=== PATIENT | female | born 1990 | race American Indian/Alaskan Native ===

== ENCOUNTER 2016-11-16 18:45 | Emergency (ER) | payer MEDICAID ==
--- NOTE | 2016-11-16 19:29 | EDM.PDOC ---
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 States she has been able to feel the baby move already during this but hasn't felt the baby move this afternoon. Also had a small amount of spotting. She has had some spotting previously with this . No abdominal pain. No cramping. No additional complaint. No fever , recent illness, vomiting, unusual vaginal discharge, pelvic pain, urinary symptoms, or other concerns. She has been getting care. Her next OB appointment is scheduled for December 05. She is in custody. 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 - Past Surgical History Female Surgical History: Reports: D&C Social & Family History - Tobacco Use Smoking Status *Q: Former Smoker Used Tobacco, but Quit: Yes Month Tobacco Last Used: 4 Second Hand Smoke Exposure: No - Caffeine Use Caffeine Use: Reports: Soda - Alcohol Use Days Per Week of Alcohol Use: 0 - Recreational Drug Use Recreational Drug Use: Yes Recreational Drug Type: Reports: Marijuana/Hashish, Methamphetamine Other Recreational Drug Type: has not used in over a year ED ROS GENERAL - Review of Systems Review Of Systems: See Below Constitutional: Denies: Fever Respiratory: Denies: Shortness of Breath, Cough Cardiovascular: Denies: Chest Pain GI/Abdominal: Denies: Abdominal Pain : Denies: Dysuria ED EXAM - Physical Exam Exam: See Below Exam Limited By: No Limitations General Appearance: Alert, WD/WN, No Apparent Distress Ears: Normal External Exam Nose: Normal Inspection Throat/Mouth: Normal Inspection, Normal Voice, No Airway Compromise Head: Atraumatic, Normocephalic Neck: Normal Inspection, Supple Respiratory/Chest: No Respiratory Distress, Lungs Clear Cardiovascular: Normal Peripheral Pulses, Regular Rate, Rhythm, No Murmur GI/Abdominal Exam: Soft, Non-Tender, No Distention. No: Rebound (Female) Exam: Normal External Exam, Normal Speculum Exam. No: Cervical Dilatation, Vaginal Bleeding Heart Tones: Present Heart Tones per Min: 162 Back Exam: Normal Inspection Extremities: Normal Inspection Neurological: Alert, Oriented, Normal Cognition, No Motor/Sensory Deficits Psychiatric: Normal Affect, Normal Mood Skin Exam: Warm, Dry, Intact, Normal Color, No Rash Course - Vital Signs Last Recorded V/S: Last Vital Signs Temp 36.7 C 11/16/16 18:54 Pulse 82 11/16/16 18:54 Resp 20 11/16/16 18:54 BP 88/60 L 11/16/16 18:54 Pulse Ox 99 11/16/16 18:54 - Orders/Labs/Meds Orders: Active Orders 24 hr Category Date Time Status Pelvic Exam, Set Up [RC] ASDIRECTED Care 11/16/16 19:20 Ordered - Re-Assessments/Exams Free Text/Narrative Re-Assessment/Exam: 11/16/16 19:[address] Cam reports that the patient is RH+ per her labs. On pelvic exam, no evidence of bleeding. Will discharge back to [facility]. Departure - Departure Time of Disposition: 19:30 Disposition: Home, Self-Care 01 Clinical Impression: Qualifiers: Weeks of gestation: 17 weeks Qualified Code(s): Z3A.17 - 17 weeks gestation of - Discharge Information Forms: ED Department Discharge Additional Instructions: 1. Follow up with Dr. Cam as planned on December 05 2. At this stage of , you do not need to come in for not feeling your baby move. This will not be a concern for at least a few weeks. Discuss with Dr. Cam for advice at what point you need to come in for this concern. 3. There was no evidence of bleeding on your pelvic exam. If you have significant spotting/bleeding like a period or passing clots please come back to the Emergency Department for evaluation. - My Orders Last 24 Hours: My Active Orders 11/16/16 19:20 Pelvic Exam, Set Up [RC] ASDIRECTED - Assessment/Plan Last 24 Hours: My Active Orders 11/16/16 19:20 Pelvic Exam, Set Up [RC] ASDIRECTED
[2016-11-16 19:48] VITALS: BP 111/70
== END 2016-11-16 19:40 | disposition home or self-care (01) ==
LOC: JD.ED 18:45
DX: O20.9 Hemorrhage in early pregnancy, unspecified (principal); Z87.891 Personal history of nicotine dependence; Z3A.17 17 weeks gestation of pregnancy
CPT/HCPCS: 99282; 99284

== ENCOUNTER 2017-04-20 23:07 | Inpatient (IN) | payer BC ==
--- NOTE | 2017-04-21 01:07 | PCM.SN ---
- Free Text/Narrative Note: Evaluation Note OB Physician: Dr. Lindy Cam HPI: Yenni Tadeo is a 27-year-old at 39 weeks and 6 days who presents complaining of large gush of fluid at approximately 10:30. Reports that she had a large gush of clear fluid at approximately 10:30 yesterday evening, 2016, and that she has had a small amount of continued leaking of fluid since large gush. She has had contractions intermittently throughout the day but they increased in intensity and frequency after the large gush of fluid. She reports that the contractions are about every 6 minutes apart at this time. Lasting for about 45-60 seconds. Rates the contractions intensity at 8/10. Denies any vaginal bleeding. Reports good movement. Her care has been with Dr. Lindy Cam and is overall uncomplicated Vitals: Physical Examination: General: No acute distress, alert and oriented Lungs: Clear to auscultation bilaterally Heart: Regular rate and rhythm Abdomen: Soft, nontender, nondistended, gravid Extremities: No edema noted in bilateral lower extremities Cervical exam: 1/50/-5 -> 2/50/-3 FHT: 135s, moderate variability, positive 15x15 accelerations, no decelerations [place]: Irregular contraction pattern with irritability with contractions every 3- 9 minutes apart Ultrasound: Vertex by bedside ultrasound Labs: Amnisure: Negative Interventions: By mouth fluid hydration Discharge Medications: None Assessment and Plan: Yenni Tadeo is a 27-year-old 032 at 39 weeks and 6 days with initial complaint of possible spontaneous rupture membranes, suspected to be urinary incontinence with negative Amnisure but active labor with cervical change. Patient in active labor after recheck Refer to observation See H&P for full details Miguel Butterfield MD 04/21/2017 9:00 AM
[2017-04-21] MEDS ORDERED: Ondansetron 4 MG/2 ML SDV IVPUSH PRN ×2 (03:12→07:16)
[2017-04-21] MEDS ORDERED: Calcium Carbonate 500 MG Tab.Chew PO PRN (03:12)
[2017-04-21] MEDS ORDERED: Sodium Chloride 0.9% 10 ML Syringe FLUSH PRN (03:12)
[2017-04-21] MEDS ORDERED: Oxytocin/Lactated Ringers 10 UNIT/1,000 ML BAG IV SCH ×3 (03:15→19:00)
[2017-04-21] MEDS: Lactated Ringers 1,000 ML IV SCH ×5 (06:45→16:51)
[2017-04-21] MEDS ORDERED: ePHEDrine 50 MG/ML SDV IVPUSH PRN (07:16)
[2017-04-21] MEDS ORDERED: diphenhydrAMINE 50 MG/ML SDV IVPUSH PRN (07:16)
[2017-04-21] MEDS ORDERED: fentaNYL 100 MCG/2 ML SDV EPIDUR PRN (07:16)
--- NOTE | 2017-04-21 07:25 | PCM.PREANE ---
Preanesthetic Assessment - Procedure Proposed Procedure: KING - Anesthesia/Transfusion/Family Hx Anesthesia History: Prior Anesthesia Without Reaction Family History of Anesthesia Reaction: No Transfusion History: No Prior Transfusion(s) - Review of Systems General: No Symptoms Pulmonary: No Symptoms Cardiovascular: No Symptoms Gastrointestinal: No Symptoms Neurological: No Symptoms Other: Reports: Diabetes (marginal gestational DM, stated her blood sugar test was 139) - Physical Assessment NPO Status Date: 04/21/17 NPO Status Time: 05:00 O2 Sat by Pulse Oximetry: 99 Respiratory Rate: 14 Vital Signs: Last Vital Signs Temp 36.8 C 04/21/17 00:18 Pulse 91 04/21/17 00:18 Resp 14 04/21/17 00:18 BP 122/59 L 04/21/17 00:18 Pulse Ox 99 04/21/17 00:18 Height: 1.63 m Weight: 92.533 kg ASA Class: 2 Mental Status: Alert & Oriented x3 Airway Class: Mallampati = 2 Dentition: Reports: Normal Dentition Thyro-Mental Finger Breadths: 3 Mouth Opening Finger Breadths: 3 ROM/Head Extension: Full Lungs: Clear to Auscultation, Normal Respiratory Effort Cardiovascular: Regular Rate, Regular Rhythm - Lab Values: Laboratory Last Values WBC 9.60 K/mm3 (3.98-10.04) 04/21/17 05:05 RBC 4.17 M/mm3 (3.98-5.22) 04/21/17 05:05 Hgb 10.0 gm/L (11.2-15.7) L 04/21/17 05:05 Hct 32.3 % (34.1-44.9) L 04/21/17 05:05 MCV 77.5 fl (79.4-94.8) L 04/21/17 05:05 MCH 24.0 pg (25.6-32.2) L 04/21/17 05:05 MCHC 31.0 g/dl (32.2-35.5) L 04/21/17 05:05 RDW Std Deviation 64.6 fL (36.4-46.3) H 04/21/17 05:05 Plt Count 201 K/mm3 (182-369) 04/21/17 05:05 MPV 12.3 fl (9.4-12.3) 04/21/17 05:05 Neut % (Auto) 70.6 % (34.0-71.1) 04/21/17 05:05 Lymph % (Auto) 20.5 % (19.3-51.7) 04/21/17 05:05 [place] % (Auto) 7.8 % (4.7-12.5) 04/21/17 05:05 Eos % (Auto) 0.5 (0.7-5.8) L 04/21/17 05:05 Baso % (Auto) 0.1 % (0.1-1.2) 04/21/17 05:05 Neut # (Auto) 6.77 K/mm3 (1.56-6.13) H 04/21/17 05:05 Lymph # (Auto) 1.97 K/mm3 (1.18-3.74) 04/21/17 05:05 [place] # (Auto) 0.75 K/mm3 (0.24-0.36) H 04/21/17 05:05 Eos # (Auto) 0.05 K/mm3 (0.04-0.36) 04/21/17 05:05 Baso # (Auto) 0.01 K/mm3 (0.01-0.08) 04/21/17 05:05 Manual Slide Review Abnormal smear 04/21/17 05:05 Membrane Rupture Negative 04/21/17 00:05 - Allergies Allergies/Adverse Reactions: Allergies Allergy/AdvReac Type Severity Reaction Status Date / Time No Known Allergies Allergy Verified 02/20/15 08:46 - Blood Blood Available: No Product(s) Available: None - Anesthesia Plan Pre-Op Medication Ordered: None - Acknowledgements Anesthesia Type Planned: Epidural Pt an Appropriate Candidate for the Planned Anesthesia: Yes Alternatives and Risks of Anesthesia Discussed w Pt/Guardian: Yes Pt/Guardian Understands and Agrees with Anesthesia Plan: Yes PreAnesthesia Questionnaire - Past Health History Medical/Surgical History: Denies 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: , 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 - Past Surgical History Female Surgical History: Reports: D&C - SUBSTANCE USE Smoking Status *Q: Former Smoker Tobacco Use Within Last Twelve Months: Cigarettes Second Hand Smoke Exposure: No Days Per Week of Alcohol Use: 0 Recreational Drug Use History: No Recreational Drug Type: Reports: Marijuana/Hashish, Methamphetamine - HOME MEDS Home Medications: Home Meds PNV95/Ferrous Fumarate/FA [ Tablet] 1 tab PO DAILY 11/16/16 [History] - CURRENT (IN HOUSE) MEDS Current Meds: Current Medications Calcium Carbonate/Glycine (Tums) 1,000 mg PO Q2H PRN PRN Reason: Indigestion Diphenhydramine HCl (Benadryl) 25 mg IVPUSH Q6H PRN PRN Reason: Pruritis Ephedrine Sulfate (Ephedrine Sulfate) 5 mg IVPUSH ASDIRECTED PRN PRN Reason: Hypotension Fentanyl (Sublimaze) 100 mcg EPIDUR Q3H PRN PRN Reason: Pain Fentanyl/Bupivacaine HCl (Fentanyl/Bupivacaine/Ns 2 Mcg-0.125% 100 Ml) 100 ml EPIDUR ASDIRECTED [place] Lactated Ringer's (Ringers, Lactated) 1,000 mls @ 100 mls/hr IV ASDIRECTED [facility] Last Admin: 04/21/17 06:45 Dose: 999 mls/hr Oxytocin/Lactated Ringer's (Pitocin In Lr 10 Units/1,000 Ml) 10 unit in 1,000 mls @ 500 mls/hr IV .CONTINUOUS [facility] Ondansetron HCl (Zofran) 4 mg IVPUSH Q4H PRN PRN Reason: Nausea/Vomiting Ondansetron HCl (Zofran) 4 mg IVPUSH ONETIME PRN PRN Reason: Nausea/Vomiting Sodium Chloride (Saline Flush) 10 ml FLUSH ASDIRECTED PRN PRN Reason: Keep Vein Open
[2017-04-21] MEDS: Bupivacaine/fentaNYL/NS 100 ML Bag EPIDUR SCH ×2 (07:53→14:28)
--- NOTE | 2017-04-21 09:14 | PCM.LDHP ---
L&D History of Present Illness - General Date of Service: 04/21/17 Admit Problem/Dx: Patient Status Order with Admit Dx/Problem 04/21/17 00:18 Patient Status [ADT] Routine 04/21/17 03:12 Patient Status [ADT] Routine Admission Diagnosis/Problem Admission Diagnosis/Problem Source of Information: Patient History Limitations: Reports: No Limitations - History of Present Illness Introduction:: Yenni Tadeo is a 27-year-old at 39 weeks and 6 days who presents complaining of large gush of fluid at approximately 10:30. Reports that she had a large gush of clear fluid at approximately 10:30 yesterday evening, 2016, and that she has had a small amount of continued leaking of fluid since large gush. She has had contractions intermittently throughout the day but they increased in intensity and frequency after the large gush of fluid. She reports that the contractions are about every 6 minutes apart at this time. Lasting for about 45-60 seconds. Rates the contractions intensity at 8/10. Denies any vaginal bleeding. Reports good movement. While she was being evaluated on labor and delivery her cervix changed from 1 to 2 cm dilated and she was kept for observation. Timing/Duration: Reports: seconds: (Contractions lasting 45-60 seconds), minutes : (Contractions approximately 6-8 minutes apart), constant/continuous Location, : Reports: Lower back, Pelvic Quality: Reports: Pressure Severity: Moderate Pain Score: 9 Present Illness Comments:: Yenni Tadeo is a 27-year-old at 39 weeks 5 days by 7 week ultrasound. Patient has had regular care with Dr. Cam since 5 weeks gestation. Review of labs show a positive blood type with negative antibody screen. Rubella immune. Hepatitis B and HIV negative. Gonorrhea and chlamydia negative. One-hour glucose tolerance test was 139. Her hemoglobin on 10/03/2016 was 13.2. Repeat hemoglobin on 03/14/2017 was benign. She has had a 43 pound weight gain throughout the . GBS was negative. She received TDaP vaccine on 03/14/2017. Appears the patient has not received flu vaccine per the records. 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 : 6 Para: 2 ([id number]) LMP (Approximate): Unknown Other OB/BYN History: Patient has had a history of D&C in 2007 - Past Surgical History Female Surgical History: Reports: D&C Social & Family History - Family History Family Medical History: Noncontributory - Tobacco Use Smoking Status *Q: Former Smoker Years of Tobacco use: 12 Packs/Tins Daily: 0 Used Tobacco, but Quit: Yes Month Tobacco Last Used: 08/2016 Second Hand Smoke Exposure: No - Caffeine Use Caffeine Use: Reports: None - Alcohol Use Days Per Week of Alcohol Use: 0 - Recreational Drug Use Recreational Drug Use: No Drug Use in Last 12 Months: Yes Recreational Drug Type: Reports: Marijuana/Hashish, Methamphetamine Other Recreational Drug Type: has not used in over a year H&P Review of Systems - Review of Systems: Review Of Systems: See Below General: Denies: Fever, Chills, Malaise, Weakness HEENT: Denies: Headaches, Sinus Congestion, Sore Throat, Visual Changes Pulmonary: Denies: Shortness of Breath, Wheezing, Cough Cardiovascular: Denies: Chest Pain, Palpitations Gastrointestinal: Denies: Abdominal Pain, Constipation, Diarrhea, Nausea, Vomiting Genitourinary: Denies: Dysuria, Frequency, Burning, Pain, Urgency Musculoskeletal: Reports: Back Pain. Denies: Joint Pain, Muscle Pain Skin: Denies: Rash, Lesions Psychiatric: Denies: Depression, Anxiety Neurological: Denies: Dizziness, Headache Hematologic/Lymphatic: Reports: Anemia. Denies: Easy Bleeding, Easy Bruising L&D Exam - Exam Exam: See Below - Vital Signs Vital Signs: Last Vital Signs Temp 36.8 C 04/21/17 00:18 Pulse 91 04/21/17 00:18 Resp 14 04/21/17 07:25 BP 122/59 L 04/21/17 00:18 Pulse Ox 99 04/21/17 07:25 Weight: 92.533 kg - OB Specific Contraction Duration (sec): 45-60 Contraction Frequency (min): Irregular every 3-6 minutes Contraction Intensity: Moderate Movement: Active Heart Tones per Min: 145 (+15 x 15 accelerations) Heart Rate (FHR) Variability: Moderate (6-25 bmp) Presentation: Vertex - Santos Score Santos Score Cervix Position: Midposition Santos Score Consistency: Soft Santos Score Effacement: 51-70% Santos Score Dilation: 3-4 cm Santos Score 's Station: -3 Santos Score Total: 7 - Exam General: Alert, Oriented HEENT: Conjunctiva Clear, EOMI Neck: Supple, Trachea Midline Lungs: Clear to Auscultation, Normal Respiratory Effort Cardiovascular: Regular Rate, Regular Rhythm GI/Abdominal Exam: Soft, Non-Tender Genitourinary: Normal external exam Back Exam: Full Range of Motion. No: CVA Tenderness (L), CVA Tenderness (R) Extremities: Normal Inspection, Pedal Edema (1+) Skin: Warm, Dry, Intact (Multiple tattoos on the hands and legs) Psychiatric: Alert, Normal Affect, Normal Mood - Patient Data Lab Results Last 24 hrs: Laboratory Results - last 24 hr 04/21/17 04/21/17 04/21/17 Range/Units 00:05 05:05 07:26 WBC 9.60 (3.98-10.04) K/mm3 RBC 4.17 (3.98-5.22) M/mm3 Hgb 10.0 L (11.2-15.7) gm/L Hct 32.3 L (34.1-44.9) % MCV 77.5 L (79.4-94.8) fl MCH 24.0 L (25.6-32.2) pg MCHC 31.0 L (32.2-35.5) g/dl RDW Std Deviation 64.6 H (36.4-46.3) fL Plt Count 201 (182-369) K/mm3 MPV 12.3 (9.4-12.3) fl Neut % (Auto) 70.6 (34.0-71.1) % Lymph % (Auto) 20.5 (19.3-51.7) % [place] % (Auto) 7.8 (4.7-12.5) % Eos % (Auto) 0.5 L (0.7-5.8) Baso % (Auto) 0.1 (0.1-1.2) % Neut # (Auto) 6.77 H (1.56-6.13) K/mm3 Lymph # (Auto) 1.97 (1.18-3.74) K/mm3 [place] # (Auto) 0.75 H (0.24-0.36) K/mm3 Eos # (Auto) 0.05 (0.04-0.36) K/mm3 Baso # (Auto) 0.01 (0.01-0.08) K/mm3 Manual Slide Review Abnormal smear Membrane Rupture Negative Urine Opiates Screen Negative (NEGATIVE) Ur Buprenorphine Scrn Negative (NEGATIVE) Ur Oxycodone Screen Negative (NEGATIVE) Urine Methadone Screen Negative (NEGATIVE) Ur Propoxyphene Screen Negative (NEGATIVE) Ur Barbiturates Screen Negative (NEGATIVE) Ur Tricyclics Screen Negative (NEGATIVE) Ur Phencyclidine Scrn Negative (NEGATIVE) Ur Amphetamine Screen Negative (NEGATIVE) U Methamphetamines Scrn Negative (NEGATIVE) U Benzodiazepines Scrn Negative (NEGATIVE) U Cocaine Metab Screen Negative (NEGATIVE) U Marijuana (THC) Screen Negative (NEGATIVE) Result Diagrams: 04/21/17 05:05 - Problem List (1) 39 weeks gestation of SNOMED Code(s): 86357071 ICD Code: Z3A.39 - 39 WEEKS GESTATION OF Status: Acute Current Visit: Yes (2) History of methamphetamine use SNOMED Code(s): 463909290 ICD Code: Z87.898 - PERSONAL HISTORY OF OTHER SPECIFIED CONDITIONS Status: Acute Current Visit: Yes (3) History of marijuana use SNOMED Code(s): 167258664 ICD Code: Z87.898 - PERSONAL HISTORY OF OTHER SPECIFIED CONDITIONS Status: Acute Current Visit: Yes Problem List Initiated/Reviewed/Updated: Yes Orders Last 24hrs: Active Orders 24 hr Category Date Time Status Patient Status [ADT] Routine ADT 04/21/17 03:12 Active Peripheral IV Care [RC] . DIRECTED Care 04/21/17 03:12 Active Vital Signs [RC] 20,04,12 Care 04/21/17 00:18 Active Regular Diet [DIET] Diet 04/21/17 Breakfast Active Bupivacaine/fentaNYL/NS [fentaNYL/Bupivacaine/NS 2 MCG- Med 04/21/17 07:30 Active 0.125% 100 ML] 100 ml EPIDUR ASDIRECTED Calcium Carbonate [Tums] Med 04/21/17 03:12 Active 1,000 mg PO Q2H PRN Lactated Ringers [Ringers, Lactated] 1,000 ml Med 04/21/17 03:15 Active IV ASDIRECTED Ondansetron [Zofran] Med 04/21/17 07:16 Active 4 mg IVPUSH ONETIME PRN Ondansetron [Zofran] Med 04/21/17 03:12 Active 4 mg IVPUSH Q4H PRN Oxytocin/Lactated Ringers [Pitocin in LR 10 Units/1,000 Med 04/21/17 03:15 Active ML] 10 unit in 1,000 ml IV .CONTINUOUS Sodium Chloride 0.9% [Saline Flush] Med 04/21/17 03:12 Active 10 ml FLUSH ASDIRECTED PRN diphenhydrAMINE [Benadryl] Med 04/21/17 07:16 Active 25 mg IVPUSH Q6H PRN ePHEDrine [ePHEDrine Sulfate] Med 04/21/17 07:16 Active 5 mg IVPUSH ASDIRECTED PRN fentaNYL [Sublimaze] Med 04/21/17 07:16 Active 100 mcg EPIDUR Q3H PRN Electronic Heart Tones Ext w TOCO [WOMSER] Oth 04/21/17 03:12 Ordered Routine Electronic Heart Tones Internal [WOMSER] Per Unit Oth 04/21/17 03:12 Ordered Routine Peripheral IV Insertion Adult [OM.PC] Routine Oth 04/21/17 03:12 Ordered Resuscitation Status Routine Resus Stat 04/21/17 00:18 Ordered Medication Orders Calcium Carbonate/Glycine (Tums) 1,000 mg PO Q2H PRN PRN Reason: Indigestion Diphenhydramine HCl (Benadryl) 25 mg IVPUSH Q6H PRN PRN Reason: Pruritis Ephedrine Sulfate (Ephedrine Sulfate) 5 mg IVPUSH ASDIRECTED PRN PRN Reason: Hypotension Fentanyl (Sublimaze) 100 mcg EPIDUR Q3H PRN PRN Reason: Pain Last Admin: 04/21/17 07:53 Dose: 100 mcg Fentanyl/Bupivacaine HCl (Fentanyl/Bupivacaine/Ns 2 Mcg-0.125% 100 Ml) 100 ml EPIDUR ASDIRECTED [place]LL Last Admin: 04/21/17 07:53 Dose: 100 ml Lactated Ringer's (Ringers, Lactated) 1,000 mls @ 100 mls/hr IV ASDIRECTED [place] Last Admin: 04/21/17 09:00 Dose: 999 mls/hr Infusion: 04/21/17 08:36 Dose: 999 mls/hr Admin: 04/21/17 07:35 Dose: 999 mls/hr Infusion: 04/21/17 07:35 Dose: 999 mls/hr Admin: 04/21/17 06:45 Dose: 999 mls/hr Oxytocin/Lactated Ringer's (Pitocin In Lr 10 Units/1,000 Ml) 10 unit in 1,000 mls @ 500 mls/hr IV .CONTINUOUS [facility] Ondansetron HCl (Zofran) 4 mg IVPUSH Q4H PRN PRN Reason: Nausea/Vomiting Ondansetron HCl (Zofran) 4 mg IVPUSH ONETIME PRN PRN Reason: Nausea/Vomiting Sodium Chloride (Saline Flush) 10 ml FLUSH ASDIRECTED PRN PRN Reason: Keep Vein Open Assessment/Plan Comment:: Refer to observation for early labor Place IV and have Lactated Ringer's at 125 ml/hr May have sips of water and ice chips while in labor. May have a light snack until active labor at 6 cm. Activity as tolerated Epidural in place Artificial rupture membranes this morning at approximately 9 AM with return of clear fluid. Patient with history of methamphetamine and marijuana use in and CPS will be contacted after delivery. Urine drug screen in hospital today was negative. Anticipate vaginal delivery unless otherwise indicated
[2017-04-21] MEDS ORDERED: Misoprostol 200 MCG Tab ONE (17:34)
[2017-04-21] MEDS ORDERED: Misoprostol 100 MCG Tab RECTAL ONE (17:52)
--- NOTE | 2017-04-21 18:10 | PCM.DEL ---
L & D Note - General Info Date of Service: 04/21/17 Mother's Due Date: 04/23/17 - Delivery Note Labor: Spontaneous, Augmented by ARM, Augmented by Oxytocin Delivery Outcome: Livebirth Delivery Method: Spontaneous Vaginal Delivery-Single Presentation: Right Occiput Posterior (ROP) Nuchal Cord: Present, Reduced (prior to delivery) Anesthesia Type: Epidural Episiotomy Type: None Laceration: 2nd Degree, Perineal (midline) Suture type: Vicryl Suture size: 3-0 Placenta: Intact, Spontaneous Cord: 3 Vessels Estimated Blood Loss: 400 : Suctioned, Bulb Syringe, Stimulated, [place] Used, Warmer Used Provider: Miguel Butterfield Score 1 min: 8 Score 5 min: 9 Second Stage Interventions: Reports: Pushing Effectively, Pushing, Stirrups/Leg Supports Delivery Comments (Free Text/Narrative):: Stage I: Yenni Tadeo was admitted for active labor. On admission her cervix was dilated to 1 cm but she changed to 2 cm after 2 hours of laboring. She was GBS negative. She was given an epidural for anesthesia. She had artificial rupture membranes with return of copious amounts of clear fluid. She had an irregular contraction pattern and around 6 cm and was started on Pitocin for augmentation of labor. She progressed to complete and pushing. Stage II: On 04/21/2017 she had a normal vaginal delivery of a live female at 1728. Apgars of 8 & 9. Weight of 4260 g (9 lbs 6 oz). Length of 21.5 inches. There was a single nuchal cord that was reduced prior to delivery. Infant was delivered in ROP position. The cord was doubly clamped and cut by father of the baby. was placed on mother's abdomen. Stage III: A segment of the cord was collected to be sent for testing prior to delivery of the placenta. She had a spontaneous delivery of an intact placenta in [place] presentation. Three vessel cord. She was given pitocin and fundal massage. She had a second-degree midline laceration that was repaired with 3-0 Vicryl. Mom and baby were stable to recovery. EBL of 400 mL. Miguel Butterfield MD 6:10 PM 04/21/2017 - Patient Data Vitals - Most Recent: Last Vital Signs Temp 36.8 C 04/21/17 00:18 Pulse 91 04/21/17 00:18 Resp 14 04/21/17 07:25 BP 122/59 L 04/21/17 00:18 Pulse Ox 99 04/21/17 07:25 Weight - Most Recent: 92.533 kg I&O - Last 24 Hours: Intake & Output 04/21/17 04/21/17 04/21/17 06:59 14:59 22:59 Intake Total 3000 1000 Balance 3000 1000 Lab Results Last 24 Hours: Laboratory Results - last 24 hr 04/21/17 04/21/17 04/21/17 Range/Units 00:05 05:05 07:26 WBC 9.60 (3.98-10.04) K/mm3 RBC 4.17 (3.98-5.22) M/mm3 Hgb 10.0 L (11.2-15.7) gm/L Hct 32.3 L (34.1-44.9) % MCV 77.5 L (79.4-94.8) fl MCH 24.0 L (25.6-32.2) pg MCHC 31.0 L (32.2-35.5) g/dl RDW Std Deviation 64.6 H (36.4-46.3) fL Plt Count 201 (182-369) K/mm3 MPV 12.3 (9.4-12.3) fl Neut % (Auto) 70.6 (34.0-71.1) % Lymph % (Auto) 20.5 (19.3-51.7) % [place] % (Auto) 7.8 (4.7-12.5) % Eos % (Auto) 0.5 L (0.7-5.8) Baso % (Auto) 0.1 (0.1-1.2) % Neut # (Auto) 6.77 H (1.56-6.13) K/mm3 Lymph # (Auto) 1.97 (1.18-3.74) K/mm3 [place] # (Auto) 0.75 H (0.24-0.36) K/mm3 Eos # (Auto) 0.05 (0.04-0.36) K/mm3 Baso # (Auto) 0.01 (0.01-0.08) K/mm3 Manual Slide Review Abnormal smear Membrane Rupture Negative Urine Opiates Screen Negative (NEGATIVE) Ur Buprenorphine Scrn Negative (NEGATIVE) Ur Oxycodone Screen Negative (NEGATIVE) Urine Methadone Screen Negative (NEGATIVE) Ur Propoxyphene Screen Negative (NEGATIVE) Ur Barbiturates Screen Negative (NEGATIVE) Ur Tricyclics Screen Negative (NEGATIVE) Ur Phencyclidine Scrn Negative (NEGATIVE) Ur Amphetamine Screen Negative (NEGATIVE) U Methamphetamines Scrn Negative (NEGATIVE) U Benzodiazepines Scrn Negative (NEGATIVE) U Cocaine Metab Screen Negative (NEGATIVE) U Marijuana (THC) Screen Negative (NEGATIVE) Med Orders - Current: Current Medications Calcium Carbonate/Glycine (Tums) 1,000 mg PO Q2H PRN PRN Reason: Indigestion Diphenhydramine HCl (Benadryl) 25 mg IVPUSH Q6H PRN PRN Reason: Pruritis Ephedrine Sulfate (Ephedrine Sulfate) 5 mg IVPUSH ASDIRECTED PRN PRN Reason: Hypotension Fentanyl (Sublimaze) 100 mcg EPIDUR Q3H PRN PRN Reason: Pain Last Admin: 04/21/17 07:53 Dose: 100 mcg Fentanyl/Bupivacaine HCl (Fentanyl/Bupivacaine/Ns 2 Mcg-0.125% 100 Ml) 100 ml EPIDUR ASDIRECTED [place] Last Admin: 04/21/17 14:28 Dose: 100 ml Lactated Ringer's (Ringers, Lactated) 1,000 mls @ 100 mls/hr IV ASDIRECTED [place] Last Admin: 04/21/17 16:51 Dose: 100 mls/hr Oxytocin/Lactated Ringer's (Pitocin In Lr 10 Units/1,000 Ml) 10 unit in 1,000 mls @ 500 mls/hr IV .CONTINUOUS M[place] Oxytocin/Lactated Ringer's (Pitocin In Lr 10 Units/1,000 Ml) 10 unit in 1,000 mls @ 12 mls/hr IV TITRATE MONTRELL; 2 MUNITS/MIN PRN Reason: Protocol Last Titration: 04/21/17 14:38 Dose: 0 munits/min, 0 mls/hr Ondansetron HCl (Zofran) 4 mg IVPUSH Q4H PRN PRN Reason: Nausea/Vomiting Ondansetron HCl (Zofran) 4 mg IVPUSH ONETIME PRN PRN Reason: Nausea/Vomiting Sodium Chloride (Saline Flush) 10 ml FLUSH ASDIRECTED PRN PRN Reason: Keep Vein Open Discontinued Medications Misoprostol (Cytotec) Confirm Administered Dose 1,000 mcg .ROUTE .STK-MED ONE Stop: 04/21/17 17:35 Misoprostol (Cytotec) 1,000 mcg RECTAL ONETIME ONE Stop: 04/21/17 17:53 - Problem List & Annotations (1) 39 weeks gestation of SNOMED Code(s): 79658849 Code(s): Z3A.39 - 39 WEEKS GESTATION OF Status: Acute Current Visit: Yes (2) History of methamphetamine use SNOMED Code(s): 381668712 Code(s): Z87.898 - PERSONAL HISTORY OF OTHER SPECIFIED CONDITIONS Status: Acute Current Visit: Yes (3) History of marijuana use SNOMED Code(s): 776372457 Code(s): Z87.898 - PERSONAL HISTORY OF OTHER SPECIFIED CONDITIONS Status: Acute Current Visit: Yes (4) (normal spontaneous vaginal delivery) SNOMED Code(s): 58134036 Code(s): O80 - ENCOUNTER FOR FULL-TERM UNCOMPLICATED DELIVERY Status: Acute Current Visit: Yes (5) Second degree laceration of perineum, delivered, current hospitalization SNOMED Code(s): 982310164 Code(s): O70.1 - SECOND DEGREE PERINEAL LACERATION DURING DELIVERY Status: Acute Current Visit: Yes - Problem List Review Problem List Initiated/Reviewed/Updated: Yes - My Orders Last 24 Hours: My Active Orders 04/21/17 00:18 Resuscitation Status Routine 04/21/17 03:12 Patient Status [ADT] Routine Peripheral IV Care [RC] . DIRECTED Calcium Carbonate [Tums] 1,000 mg PO Q2H PRN Ondansetron [Zofran] 4 mg IVPUSH Q4H PRN Sodium Chloride 0.9% [Saline Flush] 10 ml FLUSH ASDIRECTED PRN Electronic Heart Tones Ext w TOCO [WOMSER] Routine Electronic Heart Tones Internal [WOMSER] Per Unit Routine Peripheral IV Insertion Adult [OM.PC] Routine 04/21/17 03:15 Lactated Ringers [Ringers, Lactated] 1,000 ml IV ASDIRECTED Oxytocin/Lactated Ringers [Pitocin in LR 10 Units/1,000 ML] 10 unit in 1,000 ml IV .CONTINUOUS 04/21/17 09:30 Oxytocin/Lactated Ringers [Pitocin in LR 10 Units/1,000 ML] 10 unit in 1,000 ml IV TITRATE 04/21/17 Breakfast Regular Diet [DIET] - Plan Plan:: Admit to inpatient following normal spontaneous vaginal delivery. Continue Pitocin per protocol for hemorrhage prophylaxis. Patient given an additional 1000 mcg rectally of Cytotec for bleeding. Regular diet Saline lock IV once patient tolerating liquids orally. Patient plans to breast-feed. Assist as needed. Anticipate discharge home on day #1.
[2017-04-21] MEDS ORDERED: Acetaminophen 325 MG Tab PO PRN (19:00)
[2017-04-21] MEDS ORDERED: Benzocaine/Menthol 20%-0.5% Spray 56 GM Canister TOP PRN (19:00)
[2017-04-21] MEDS ORDERED: Witch Hazel Medicated Pads 100/Jar TOP PRN (19:00)
[2017-04-21] MEDS ORDERED: Magnesium Hydroxide 400 MG/5 ML Susp 30 ML Cup PO PRN (19:00)
[2017-04-21] MEDS ORDERED: Lanolin 100% Cream 7 GM Tube TOP PRN (19:00)
[2017-04-21] MEDS ORDERED: Docusate Sodium 100 MG Cap PO PRN (19:00)
[2017-04-21] MEDS ORDERED: Hydrocortisone Acetate 25 MG Supp RECTAL PRN (19:00)
[2017-04-21] MEDS: Ibuprofen 600 MG Tab PO PRN (21:03)
[2017-04-21] MEDS ORDERED: Bupivacaine 0.25% 10 ML SDV ONE (22:22)
[2017-04-22] MEDS: Acetaminophen/HYDROcodone 325-5 MG Tab PO PRN ×4 (00:06→20:22)
[2017-04-22] MEDS: Ibuprofen 600 MG Tab PO PRN ×3 (03:32→18:30)
[2017-04-22] MEDS: Prenatal Multivitamin with Calcium/Folic Acid/Iron Tab PO SCH (09:27)
--- NOTE | 2017-04-22 09:27 | PCM.SN ---
- Free Text/Narrative Note: Post Progress Note PPD # 1 Subjective: Doing well overall. Ambulating without difficulty. Lochia minimal. Voiding without difficulty. Tolerating regular diet. Pain able to be controlled with oral medications. Patient reports significant uterine cramping with breast- feeding. Unresolved with ibuprofen and heating pad. Patient given [place] for control which she says is helping with her pain with the cramping. Breast feeding with minimal difficulty. Objective: Vitals: Vital Signs - 24 hr 04/21/17 04/21/17 04/21/17 09:30 10:00 10:30 Temperature Temperature [ Temporal] Pulse, 96 96 103 H Peripheral Respiratory Rate Blood Pressure 97/52 L 91/42 L 92/46 L O2 Sat by Pulse Oximetry 04/21/17 04/21/17 04/21/17 11:00 11:31 12:00 Temperature Temperature [ Temporal] Pulse, 109 H 105 H 100 Peripheral Respiratory Rate Blood Pressure 112/72 130/97 H 121/59 L O2 Sat by Pulse Oximetry 04/21/17 04/21/17 04/21/17 12:31 13:00 13:30 Temperature Temperature [ Temporal] Pulse, 100 99 97 Peripheral Respiratory Rate Blood Pressure 110/50 L 104/52 L 116/50 L O2 Sat by Pulse Oximetry 04/21/17 04/21/17 04/21/17 14:00 14:31 15:00 Temperature Temperature [ Temporal] Pulse, 110 H 110 H 104 H Peripheral Respiratory Rate Blood Pressure 96/63 85/57 L 110/63 O2 Sat by Pulse Oximetry 04/21/17 04/21/17 04/21/17 15:30 16:01 16:31 Temperature Temperature [ Temporal] Pulse, 111 H 99 105 H Peripheral Respiratory Rate Blood Pressure 113/70 122/45 L 108/42 L O2 Sat by Pulse Oximetry 04/21/17 04/21/17 04/21/17 17:00 17:32 18:00 Temperature Temperature [ Temporal] Pulse, 96 106 H 101 H Peripheral Respiratory Rate Blood Pressure 117/56 L 102/63 112/69 O2 Sat by Pulse Oximetry 04/21/17 04/21/17 04/21/17 18:30 19:00 19:30 Temperature Temperature [ 36.8 C Temporal] Pulse, 97 93 92 Peripheral Respiratory 14 Rate Blood Pressure 124/67 120/81 129/68 O2 Sat by Pulse Oximetry 04/22/17 03:32 Temperature 36.5 C Temperature [ Temporal] Pulse, 68 Peripheral Respiratory 14 Rate Blood Pressure 127/81 O2 Sat by Pulse 98 Oximetry Physical Exam General: Alert and oriented, no acute distress Lungs: Clear to auscultation bilaterally Heart: Regular rate and rhythm Abdomen: Soft, minimal appropriate tenderness, non-distended, fundus midline, mildly tender, and below the umbilicus Extremities: Trace pedal edema bilaterally ASSESSMENT: 27-year-old female G 6 P 3033 s/p normal vaginal delivery PPD #1, complicated by history of methamphetamine and marijuana use in PLAN: Doing well Breast feeding with minimal difficulty. Assist as needed Lochia minimal. Continue to monitor for appropriate lochia. Continue routine care. Continue to monitor her pain closely and treat as indicated. CPS has been contacted secondary to history of marijuana and methamphetamine use in . Labor and delivery had received report from [facility] instructing L&D units to contact them once she delivered. Anticipate discharge home tomorrow Miguel Butterfield MD 9:27 AM 04/22/2017
[2017-04-23] MEDS: Acetaminophen/HYDROcodone 325-5 MG Tab PO PRN ×2 (03:13→09:06)
[2017-04-23] MEDS: Prenatal Multivitamin with Calcium/Folic Acid/Iron Tab PO SCH (09:06)
[2017-04-23 09:16] VITALS: BP 116/60
--- NOTE | 2017-04-23 09:51 | PCM.SN ---
- Free Text/Narrative Note: Post Progress Note PPD # 2 Subjective: Doing well overall. Ambulating without difficulty. Lochia minimal. Voiding without difficulty. Tolerating regular diet. Pain able to be controlled with oral medications. Patient reports continued significant uterine cramping with breast-feeding. Unresolved with ibuprofen and heating pad. Patient given [place] for control which she says is helping with her pain with the cramping. Breast feeding with small amount of milk supply, supplementing with bottle feeding. Objective: Vitals: Vital Signs - 24 hr 04/22/17 04/22/17 04/23/17 13:34 20:16 03:19 Temperature 36.5 C 36.9 C 36.5 C Temperature [ Temporal] Pulse, 93 100 78 Peripheral Pulse, Peripheral [ Pulse Oximetry] Respiratory 14 18 18 Rate Blood Pressure 105/56 L 110/48 L 127/102 H Blood Pressure [Upper Arm] O2 Sat by Pulse 100 95 98 Oximetry 04/23/17 09:15 Temperature Temperature [ 36.7 C Temporal] Pulse, Peripheral Pulse, 70 Peripheral [ Pulse Oximetry] Respiratory 18 Rate Blood Pressure Blood Pressure 116/60 [Upper Arm] O2 Sat by Pulse 98 Oximetry Physical Exam General: Alert and oriented, no acute distress Lungs: Clear to auscultation bilaterally Heart: Regular rate and rhythm Abdomen: Soft, minimal appropriate tenderness, non-distended, fundus midline, non-tender, and below the umbilicus Extremities: Trace pedal edema bilaterally ASSESSMENT: 27-year-old female G 6 P 3033 s/p normal vaginal delivery PPD #2, complicated by history of methamphetamine and marijuana use in PLAN: Doing well Breast and bottle feeding with minimal difficulty. Assist as needed Lochia minimal. Continue to monitor for appropriate lochia. Continue routine care. Continue to monitor her pain closely and treat as indicated. CPS has been contacted secondary to history of marijuana and methamphetamine use in . Labor and delivery had received report from [facility] instructing L&D units to contact them once she delivered. Anticipate discharge home today Miguel Butterfield MD 9:49 AM 04/23/2017
--- NOTE | 2017-04-23 09:57 | PCM.DCSUM1 ---
Discharge Summary - Hospital Course Free Text/Narrative:: Stage I: Yenni Tadeo was admitted for active labor. On admission her cervix was dilated to 1 cm but she changed to 2 cm after 2 hours of laboring. She was GBS negative. She was given an epidural for anesthesia. She had artificial rupture membranes with return of copious amounts of clear fluid. She had an irregular contraction pattern and around 6 cm and was started on Pitocin for augmentation of labor. She progressed to complete and pushing. Stage II: On 04/21/2017 she had a normal vaginal delivery of a live female at 1728. Apgars of 8 & 9. Weight of 4260 g (9 lbs 6 oz). Length of 21.5 inches. There was a single nuchal cord that was reduced prior to delivery. Infant was delivered in ROP position. The cord was doubly clamped and cut by father of the baby. was placed on mother's abdomen. Stage III: A segment of the cord was collected to be sent for testing prior to delivery of the placenta. She had a spontaneous delivery of an intact placenta in [place] presentation. Three vessel cord. She was given pitocin and fundal massage. She had a second-degree midline laceration that was repaired with 3-0 Vicryl. Mom and baby were stable to recovery. EBL of 400 mL. HPI Initial Comments: Stage I: Yenni Tadeo was admitted for active labor. On admission her cervix was dilated to 1 cm but she changed to 2 cm after 2 hours of laboring. She was GBS negative. She was given an epidural for anesthesia. She had artificial rupture membranes with return of copious amounts of clear fluid. She had an irregular contraction pattern and around 6 cm and was started on Pitocin for augmentation of labor. She progressed to complete and pushing. Stage II: On 04/21/2017 she had a normal vaginal delivery of a live female at 1728. Apgars of 8 & 9. Weight of 4260 g (9 lbs 6 oz). Length of 21.5 inches. There was a single nuchal cord that was reduced prior to delivery. was delivered in ROP position. The cord was doubly clamped and cut by father of the baby. Infant was placed on mother's abdomen. Stage III: A segment of the cord was collected to be sent for testing prior to delivery of the placenta. She had a spontaneous delivery of an intact placenta in [place] presentation. Three vessel cord. She was given pitocin and fundal massage. She had a second-degree midline laceration that was repaired with 3-0 Vicryl. Mom and baby were stable to recovery. EBL of 400 mL. Brief History: Stage I: Yenni Tadeo was admitted for active labor. On admission her cervix was dilated to 1 cm but she changed to 2 cm after 2 hours of laboring. She was GBS negative. She was given an epidural for anesthesia. She had artificial rupture membranes with return of copious amounts of clear fluid. She had an irregular contraction pattern and around 6 cm and was started on Pitocin for augmentation of labor. She progressed to complete and pushing. Stage II: On 04/21/2017 she had a normal vaginal delivery of a live female infant at 1728. Apgars of 8 & 9. Weight of 4260 g (9 lbs 6 oz). Length of 21.5 inches. There was a single nuchal cord that was reduced prior to delivery. was delivered in ROP position. The cord was doubly clamped and cut by father of the baby. Infant was placed on mother's abdomen. Stage III: A segment of the cord was collected to be sent for testing prior to delivery of the placenta. She had a spontaneous delivery of an intact placenta in [place] presentation. Three vessel cord. She was given pitocin and fundal massage. She had a second-degree midline laceration that was repaired with 3-0 Vicryl. Mom and baby were stable to recovery. EBL of 400 mL. - Discharge Data Discharge Date: 04/23/17 Discharge Disposition: Home, Self-Care 01 Condition: Good - Discharge Diagnosis/Problem(s) (1) 39 weeks gestation of SNOMED Code(s): 76126882 ICD Code: Z3A.39 - 39 WEEKS GESTATION OF Status: Acute Current Visit: Yes (2) History of methamphetamine use SNOMED Code(s): 850206443 ICD Code: Z87.898 - PERSONAL HISTORY OF OTHER SPECIFIED CONDITIONS Status: Acute Current Visit: Yes (3) History of marijuana use SNOMED Code(s): 803438542 ICD Code: Z87.898 - PERSONAL HISTORY OF OTHER SPECIFIED CONDITIONS Status: Acute Current Visit: Yes (4) (normal spontaneous vaginal delivery) SNOMED Code(s): 09593077 ICD Code: O80 - ENCOUNTER FOR FULL-TERM UNCOMPLICATED DELIVERY Status: Acute Current Visit: Yes (5) Second degree laceration of perineum, delivered, current hospitalization SNOMED Code(s): 996836548 ICD Code: O70.1 - SECOND DEGREE PERINEAL LACERATION DURING DELIVERY Status : Acute Current Visit: Yes - Patient Summary/Data Complications: None Consults: Consultations 04/21/17 19:00 Consult to [employer] [CONS] Routine Hospital Course: Yenni Tadeo was admitted for spontaneous labor on 04/21/2017. On admission her cervix is dilated 1 cm with changed to 2 cm after 2 hours of labor. She was given an epidural for anesthesia. She had artificial rupture membranes with return of large amount of clear fluid. She started on Pitocin for augmentation of labor. Patient was GBS negative and did not require advanced prophylaxis. On 04/21/2017 showed a normal spontaneous vaginal delivery of a live female at 1728. Apgars of 8 and 9. Weight of 4260 g (9 lbs. 6 oz.) . She had a second degree midline laceration was repaired with 3-0 Vicryl. EBL was 400 mL. Her course was overall uncomplicated. On day #1 she was meeting all milestones including emulating without difficulty. She was tolerating regular diet without any nausea or vomiting. She is voiding without difficulty. She was having a moderate amount of uterine cramping with breast-feeding was not able to be controlled with Tylenol, ibuprofen and heating pad. She was given [place] for this pain which was able to control her pain. She is breast-feeding without difficulty on day #1. On day #2 she continued to do well and was meeting milestones. She was continuing to breast-feed but had small amount of milk supply and supplementing with bottle feeding. She continued to be ambulating and voiding without difficulty. She was tolerating regular diet without any nausea or vomiting. She is R to be discharged home in the morning of day #2. She will follow-up with Dr. Cam in 6 weeks or earlier as needed. media services specialist was contacted secondary to patient's history of marijuana methamphetamine use in . - Patient Instructions Diet: Regular Diet as Tolerated Activity: As Tolerated Activity, Other: Nothing in the vagina for 6 weeks Driving: May Drive Today Showering/Bathing: May Shower, No Tub Bathing/Swimming (For 2 weeks) Notify Provider of: Fever, Increased Pain, Swelling and Redness, Drainage, Nausea and/or Vomiting - Discharge Plan Prescriptions/Med Rec: Acetaminophen/HYDROcodone [[place] 325-5 MG] 1 - 2 tab PO Q6H PRN #24 tablet PRN Reason: Pain (Severe 7-10) Home Medications: Home Meds PNV95/Ferrous Fumarate/FA [ Tablet] 1 tab PO DAILY 11/16/16 [History] Acetaminophen [Tylenol] 650 mg PO Q6H PRN tablet 04/23/17 [Rx] Acetaminophen/HYDROcodone [[place] 325-5 MG] 1 - 2 tab PO Q6H PRN #24 tablet 04/23 [Rx] Docusate Sodium [Colace] 100 mg PO BID PRN cap 04/23/17 [Rx] Hydrocortisone Acetate [Anucort-HC] 25 mg RECTAL BID PRN supp 04/23/17 [Rx] Ibuprofen [IJD: Ibuprofen] 600 mg PO Q6H PRN tablet 04/23/17 [Rx] Lanolin [Lansinoh HPA] 1 applic TOP ASDIRECTED PRN tube 04/23/17 [Rx] Witch [place] [Tucks] 1 pad TOP ASDIRECTED PRN pad 04/23/17 [Rx] Patient Handouts: Vaginal Delivery, Care After, Breast Pumping Tips, Easy-to- Read, Challenges and Solutions Referrals: Lindy Cam MD [Physician] - (Follow-up for routine visit in 6 weeks.) - Patient Data Vitals - Most Recent: Last Vital Signs Temp 36.7 C 04/23/17 09:15 Pulse 70 04/23/17 09:15 Resp 18 04/23/17 09:15 BP 116/60 04/23/17 09:15 Pulse Ox 98 04/23/17 09:15 Weight - Most Recent: 92.533 kg Med Orders - Current: Current Medications Acetaminophen (Tylenol) 650 mg PO Q6H PRN PRN Reason: mild pain or fever Last Admin: 04/21/17 21:56 Dose: 650 mg Hydrocodone Bitart/Acetaminophen ([place] 325-5 Mg) 2 tab PO Q6H PRN PRN Reason: Pain (severe 7-10) Last Admin: 04/23/17 09:06 Dose: 2 tab Benzocaine/Menthol (Dermoplast Pain Relief [place]) 0 gm TOP ASDIRECTED PRN PRN Reason: Perineal Comfort Measure Last Admin: 04/21/17 21:03 Dose: 1 canister Docusate Sodium (Colace) 100 mg PO BID PRN PRN Reason: Constipation Emollient Ointment (Lansinoh Hpa) 0 gm TOP ASDIRECTED PRN PRN Reason: Sore Nipples Hydrocortisone Acetate (Anucort-Hc) 25 mg RECTAL BID PRN PRN Reason: Hemorrhoid pain Oxytocin/Lactated Ringer's (Pitocin In Lr 10 Units/1,000 Ml) 10 unit in 1,000 mls @ 100 mls/hr IV TITRATE M[place]LL PRN Reason: Protocol Ibuprofen (Motrin) 600 mg PO Q6H PRN PRN Reason: Mild pain or fever Last Admin: 04/22/17 18:30 Dose: 600 mg Magnesium Hydroxide (Milk Of Magnesia) 30 ml PO BEDTIME PRN PRN Reason: Constipation Prenat Multivit/[employer] Distribution Plant Operator/Iron/Folic Ac ( Plus Iron) 1 each PO DAILY [facility] Last Admin: 04/23/17 09:06 Dose: 1 each Witch [place] (Tucks) 1 pad TOP ASDIRECTED PRN PRN Reason: Hemorrhoid pain Last Admin: 04/21/17 21:02 Dose: 1 canister Discontinued Medications Bupivacaine HCl (Sensorcaine-Mpf 0.25%) 10 ml .ROUTE .STK-MED ONE Stop: 04/21/17 22:23 Calcium Carbonate/Glycine (Tums) 1,000 mg PO Q2H PRN PRN Reason: Indigestion Diphenhydramine HCl (Benadryl) 25 mg IVPUSH Q6H PRN PRN Reason: Pruritis Ephedrine Sulfate (Ephedrine Sulfate) 5 mg IVPUSH ASDIRECTED PRN PRN Reason: Hypotension Fentanyl (Sublimaze) 100 mcg EPIDUR Q3H PRN PRN Reason: Pain Last Admin: 04/21/17 07:53 Dose: 100 mcg Fentanyl/Bupivacaine HCl (Fentanyl/Bupivacaine/Ns 2 Mcg-0.125% 100 Ml) 100 ml EPIDUR ASDIRECTED [facility] Last Admin: 04/21/17 14:28 Dose: 100 ml Lactated Ringer's (Ringers, Lactated) 1,000 mls @ 100 mls/hr IV ASDIRECTED [place] Last Admin: 04/21/17 16:51 Dose: 100 mls/hr Oxytocin/Lactated Ringer's (Pitocin In Lr 10 Units/1,000 Ml) 10 unit in 1,000 mls @ 500 mls/hr IV .CONTINUOUS MONTRELL Oxytocin/Lactated Ringer's (Pitocin In Lr 10 Units/1,000 Ml) 10 unit in 1,000 mls @ 12 mls/hr IV TITRATE MONTRELL; 2 MUNITS/MIN PRN Reason: Protocol Last Titration: 04/21/17 14:38 Dose: 0 munits/min, 0 mls/hr Misoprostol (Cytotec) Confirm Administered Dose 1,000 mcg .ROUTE .STK-MED ONE Stop: 04/21/17 17:35 Last Admin: 04/21/17 19:01 Dose: Not Given Misoprostol (Cytotec) 1,000 mcg RECTAL ONETIME ONE Stop: 04/21/17 17:53 Last Admin: 04/21/17 17:55 Dose: 1,000 mcg Ondansetron HCl (Zofran) 4 mg IVPUSH Q4H PRN PRN Reason: Nausea/Vomiting Ondansetron HCl (Zofran) 4 mg IVPUSH ONETIME PRN PRN Reason: Nausea/Vomiting Sodium Chloride (Saline Flush) 10 ml FLUSH ASDIRECTED PRN PRN Reason: Keep Vein Open *Q Meaningful Use (DIS) - VTE *Q VTE Criteria *Q: - Stroke *Q Stroke Criteria *Q: - AMI *Q AMI Criteria *Q:
== END 2017-04-23 10:05 | disposition home or self-care (01) | DRG 560 ==
LOC: JD.OBCHECK 23:07 → JD.OB 23:12 → JD.OBCHECK 04-21 03:53 → JD.OB 04-21 03:54 → OBSVTOIN 04-21 17:28 → JD.OB 04-21 17:28
PROVIDERS: ADMIT Obstetrics & Gynecology; ATTEND Obstetrics & Gynecology
PROC: 10E0XZZ Delivery of Products of Conception, External Approach (ICD-10-PCS; principal; 2017-04-21)
PROC: 0KQM0ZZ Repair Perineum Muscle, Open Approach (ICD-10-PCS; 2017-04-21)
PROC: 10907ZC Drainage of Amniotic Fluid, Therapeutic from Products of Conception, Via Natural or Artificial Opening (ICD-10-PCS; 2017-04-21)
PROC: 00HU33Z Insertion of Infusion Device into Spinal Canal, Percutaneous Approach (ICD-10-PCS; 2017-04-21)
PROC: 3E0R3BZ Introduction of Anesthetic Agent into Spinal Canal, Percutaneous Approach (ICD-10-PCS; 2017-04-21)
DX: O42.12 Full-term premature rupture of membranes, onset of labor more than 24 hours following rupture (principal); Z3A.40 40 weeks gestation of pregnancy; Z37.0 Single live birth; Z87.891 Personal history of nicotine dependence; O70.1 Second degree perineal laceration during delivery; O69.81X0 Labor and delivery complicated by cord around neck, without compression, not applicable or unspecified
CPT/HCPCS: 36415; 51702; 59300; 59409; 80306; 84112; 85025; A9270-GY; J2590; J3010; J7120

== ENCOUNTER 2017-10-19 11:22 | Emergency (ER) | payer SELFPAY ==
[2017-10-19 11:41] VITALS: BP 118/70
--- NOTE | 2017-10-19 12:06 | EDM.PDOC ---
ED HPI GENERAL MEDICAL PROBLEM - General Chief Complaint: Skin Complaint Stated Complaint: RIGHT SIDE OF FACE SWOLLEN AND PAINFUL Time Seen by Provider: 10/19/17 12:05 Source of Information: Reports: Patient History Limitations: Reports: No Limitations - History of Present Illness INITIAL COMMENTS - FREE TEXT/NARRATIVE: Yenni is a 27yo female, presents ambulatory with complaints of right sided facial pain and swelling starting last evening. States she had a pimple to her right chin that she tried to pop last night, she got very little yellow drainage , mostly clear. She woke this morning to swelling to her right lower lip, chin and into her neck that is extremely painful. She took tylenol without relief. Denies f/c/s, no ear pain, throat pain, SOB, cough, CP. She is mildly nauseous. No hx of DM, no other prior skin infections. Onset: Sudden Duration: Day(s): (1) Location: Reports: Face Quality: Reports: Pressure, Throbbing Severity: Severe Improves with: Reports: None Worsens with: Reports: Movement (of mouth/jaw--cannot open her mouth without pain, can open very little. Has only drank today, cannot eat due to pain with chewing and opening mouth) Associated Symptoms: Reports: Loss of Appetite, Nausea/Vomiting. 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 Denies: Fever, Chills, Malaise, Weakness, Fatigue, Diaphoresis HEENT: Reports: Other (see HPI, rt sided facial pain/swelling). Denies: Ear Pain, Eye Pain, Rhinitis, Sinus Problem, Throat Pain, Throat Swelling Respiratory: Reports: No Symptoms Cardiovascular: Reports: No Symptoms GI/Abdominal: Reports: Nausea. Denies: Abdominal Pain, Diarrhea, Vomiting Musculoskeletal: Reports: No Symptoms Skin: Reports: Erythema (right lower chin) Neurological: Reports: Headache, Paresthesia (to right lip and chin), Trouble Speaking (due to swelling and pain) Psychiatric: Reports: No Symptoms ED EXAM, SKIN/RASH Exam: See Below Exam Limited By: No Limitations General Appearance: Alert, WD/WN, No Apparent Distress, Other (in pain with talking or moving jaw/mouth) Eye Exam: Bilateral Eye: EOMI, PERRL Ears: Normal External Exam, Normal Canal, Hearing Grossly Normal, Normal TMs Nose: Normal Inspection Throat/Mouth: Normal Teeth (dental caries to back right lower jaw; teeth with general poor dentition and gingival erythema), Normal Oropharynx, Normal Voice, No Airway Compromise. No: Normal Lips Head: Normocephalic, Facial Swelling (right lower jaw/lip, midline right chin to right cheek/jaw is with pain, erythema, induration to mid right chin over to mid right lower jaw, some pain and tenderness to submandible region on the right also. No areas of fluctuance noted. ), Facial Tenderness Neck: Supple, Full Range of Motion. No: Lymphadenopathy (L), Lymphadenopathy (R ) Respiratory/Chest: No Respiratory Distress, Lungs Clear, Normal Breath Sounds Cardiovascular: Regular Rate, Rhythm, No Edema, No Murmur GI/Abdominal: Normal Bowel Sounds, Soft (Female) Exam: Deferred Rectal (Female) Exam: Deferred Extremities: Normal Range of Motion, No Pedal Edema Neurological: Alert, Oriented, CN II-XII Intact, Normal Cognition Psychiatric: Normal Affect, Normal Mood Skin: Warm, Dry, Erythema (see above exam for skin findings), Tattoo(s) ( multiple about hands/forearms, neck) Location, Skin: Face (right) Characteristics: Erythematous Associated features: Warmth, Tenderness, Swelling, Induration. No: Scaling, Lymphangitis, Crusting, Weeping Lymphatic: No Adenopathy Course - Vital Signs Text/Narrative:: will await serum hcg prior to CT as patient is at least 1 week late with menses. Assure medications are safe in possible . Last Recorded V/S: Last Vital Signs Temp 97.6 F 10/19/17 11:41 Pulse 96 10/19/17 11:41 Resp 20 10/19/17 11:41 BP 118/70 10/19/17 11:41 Pulse Ox 99 10/19/17 11:41 - Orders/Labs/Meds Orders: Active Orders 24 hr Category Date Time Status Max Facial Sinus w Cont [CT] Stat Exams 10/19/17 12:18 Ordered Labs: Laboratory Tests 10/19/17 10/19/17 10/19/17 Range/Units 12:35 12:35 12:35 WBC 8.78 (3.98-10.04) K/mm3 RBC 4.65 (3.98-5.22) M/mm3 Hgb 12.5 (11.2-15.7) gm/L Hct 37.5 (34.1-44.9) % MCV 80.6 (79.4-94.8) fl MCH 26.9 (25.6-32.2) pg MCHC 33.3 (32.2-35.5) g/dl RDW Std Deviation 37.1 (36.4-46.3) fL Plt Count 235 (182-369) K/mm3 MPV 11.6 (9.4-12.3) fl Neut % (Auto) 72.6 H (34.0-71.1) % Lymph % (Auto) 18.3 L (19.3-51.7) % [place] % (Auto) 8.2 (4.7-12.5) % Eos % (Auto) 0.6 L (0.7-5.8) Baso % (Auto) 0.1 (0.1-1.2) % Neut # (Auto) 6.37 H (1.56-6.13) K/mm3 Lymph # (Auto) 1.61 (1.18-3.74) K/mm3 [place] # (Auto) 0.72 H (0.24-0.36) K/mm3 Eos # (Auto) 0.05 (0.04-0.36) K/mm3 Baso # (Auto) 0.01 (0.01-0.08) K/mm3 Sodium 135 L (136-145) mEq/L Potassium 3.5 (3.5-5.1) mEq/L Chloride 102 (98-107) mEq/L Carbon Dioxide 23 (21-32) mEq/L Anion Gap 13.5 (5-15) BUN 12 (7-18) mg/dL Creatinine 0.8 (0.55-1.02) mg/dL Est Cr Clr Drug Dosing 89.60 mL/min Estimated GFR (MDRD) > 60 (>60) mL/min BUN/Creatinine Ratio 15.0 (14-18) Glucose 86 (74-106) mg/dL Calcium 8.4 L (8.5-10.1) mg/dL Total Bilirubin 0.7 (0.2-1.0) mg/dL AST 34 (15-37) U/L ALT 38 (14-59) U/L Alkaline Phosphatase 76 (46-116) U/L C-Reactive Protein 5.0 H* (<1.0) mg/dL Total Protein 7.6 (6.4-8.2) g/dl Albumin 3.6 (3.4-5.0) g/dl Globulin 4.0 gm/dL Albumin/Globulin Ratio 0.9 L (1-2) HCG, Qual Positive H (NEGATIVE) HCG, Quant mIU/mL 10/19/17 Range/Units 12:35 WBC (3.98-10.04) K/mm3 RBC (3.98-5.22) M/mm3 Hgb (11.2-15.7) gm/L Hct (34.1-44.9) % MCV (79.4-94.8) fl MCH (25.6-32.2) pg MCHC (32.2-35.5) g/dl RDW Std Deviation (36.4-46.3) fL Plt Count (182-369) K/mm3 MPV (9.4-12.3) fl Neut % (Auto) (34.0-71.1) % Lymph % (Auto) (19.3-51.7) % [place] % (Auto) (4.7-12.5) % Eos % (Auto) (0.7-5.8) Baso % (Auto) (0.1-1.2) % Neut # (Auto) (1.56-6.13) K/mm3 Lymph # (Auto) (1.18-3.74) K/mm3 [place] # (Auto) (0.24-0.36) K/mm3 Eos # (Auto) (0.04-0.36) K/mm3 Baso # (Auto) (0.01-0.08) K/mm3 Sodium (136-145) mEq/L Potassium (3.5-5.1) mEq/L Chloride (98-107) mEq/L Carbon Dioxide (21-32) mEq/L Anion Gap (5-15) BUN (7-18) mg/dL Creatinine (0.55-1.02) mg/dL Est Cr Clr Drug Dosing mL/min Estimated GFR (MDRD) (>60) mL/min BUN/Creatinine Ratio (14-18) Glucose (74-106) mg/dL Calcium (8.5-10.1) mg/dL Total Bilirubin (0.2-1.0) mg/dL AST (15-37) U/L ALT (14-59) U/L Alkaline Phosphatase (46-116) U/L C-Reactive Protein (<1.0) mg/dL Total Protein (6.4-8.2) g/dl Albumin (3.4-5.0) g/dl Globulin gm/dL Albumin/Globulin Ratio (1-2) HCG, Qual (NEGATIVE) HCG, Quant 20203.0 mIU/mL Meds: Medications Discontinued Medications Generic Name Dose Route Start Last Admin Trade Name Freq PRN Reason Stop Dose Admin Ceftriaxone Sodium Confirm 10/19/17 13:03 10/19/17 14:09 Rocephin Administered 10/19/17 13:04 Not Given Dose 1 gm IV .STK-MED ONE Ceftriaxone Sodium 1 gm/ 100 mls @ 200 mls/hr 10/19/17 12:21 10/19/17 13:16 Sodium Chloride IV 10/19/17 12:50 200 mls/hr ONETIME ONE Administration Morphine Sulfate 1 mg 10/19/17 12:21 10/19/17 13:14 Morphine IVPUSH 10/19/17 12:22 1 mg ONETIME ONE Administration - Re-Assessments/Exams Free Text/Narrative Re-Assessment/Exam: 10/19/17 15:04 HCG is positive so CT scan is cancelled. Dr. Emmanuel did also see and examine patient's face. Is in agreement to POC that has been laid out, PO abx and close follow up. Departure - Departure Time of Disposition: 15:04 Disposition: Home, Self-Care 01 Condition: Good Clinical Impression: Early stage of Cellulitis Qualifiers: Site of cellulitis: face Qualified Code(s): L03.211 - Cellulitis of face - Discharge Information Instructions: Cellulitis, Adult, First Trimester of , [id number] Referrals: PCP,None [Primary Care Provider] - Forms: ED Department Discharge Additional Instructions: Oral antibiotics as prescribed, recommend probiotic daily or yogurt daily. Take antibiotic with food, push fluids Tylenol only 1,000mg 3 times daily for pain if needed. Start vitamin, avoid alcohol as you are in early stages of . Follow up establish OB care as soon as possible. A quanitative hormone level was drawn and is 16,018 which is consistent with around 4-6 weeks of . Notify your OB provider if you should experience persistent bleeding or cramping. Follow up with PCP early this week for recheck of facial swelling, return to ER if worsening of swelling, fevers not controlled with tylenol, swelling into your neck, confusion, chills/sweats or any other concerns. - My Orders Last 24 Hours: My Active Orders 10/19/17 12:18 Max Facial Sinus w Cont [CT] Stat - Assessment/Plan Last 24 Hours: My Active Orders 10/19/17 12:18 Max Facial Sinus w Cont [CT] Stat
[2017-10-19] MEDS ORDERED: cefTRIAXone 1 GM in Sodium Chloride 0.9% 100 ML IV ONE (12:21)
[2017-10-19] MEDS ORDERED: Morphine 2 MG/ML Syringe IVPUSH ONE (12:21)
[2017-10-19] MEDS ORDERED: cefTRIAXone 1 GM AdvVial IV ONE (13:03)
== END 2017-10-19 15:25 | disposition home or self-care (01) ==
LOC: JD.ED 11:22
DX: L03.211 Cellulitis of face (principal); Z33.1 Pregnant state, incidental; F17.210 Nicotine dependence, cigarettes, uncomplicated
CPT/HCPCS: 36415; 80053; 84702; 84703; 85025; 86140; 96365; 96368; 99283; J0696; J2270; J7030; 99284

== ENCOUNTER 2017-10-21 09:03 | Inpatient (IN) | payer MEDICAID ==
[2017-10-21] MEDS ORDERED: Sodium Chloride 0.9% 10 ML Syringe FLUSH PRN (10:04)
[2017-10-21] MEDS ORDERED: HYDROmorphone 0.5 MG/0.5 ML SYRINGE IVPUSH ONE ×3 (10:05→12:33)
[2017-10-21] MEDS: Lactated Ringers 1,000 ML IV SCH ×2 (10:24→18:58)
[2017-10-21] MEDS ORDERED: Vancomycin 1.75 GM in Sodium Chloride 0.9% 500 ML IV ONE (10:30)
--- NOTE | 2017-10-21 11:04 | EDM.PDOC ---
ED HPI GENERAL MEDICAL PROBLEM - General Chief Complaint: Skin Complaint Stated Complaint: POSS FACIAL INFECTION Time Seen by Provider: 10/21/17 09:48 Source of Information: Reports: Patient History Limitations: Reports: No Limitations - History of Present Illness INITIAL COMMENTS - FREE TEXT/NARRATIVE: The patient presents with facial edema and pain. She was seen here this weekend and diagnosed with facial cellulitis. She was given a dose of rocephin here and a prescription for more. The pain has increased and she has more swelling. She has fever and chills at times. She has a hard time opening her mouth due to the pain. She has no chest pain or shortness of breath. She has no abdominal pain, nausea or vomiting. She said a few days before this started she did squeeze on a zit. Onset: Gradual Duration: Day(s): Location: Reports: Face Quality: Reports: Sharp Severity: Severe Improves with: Reports: None Worsens with: Reports: None Associated Symptoms: Reports: Fever/Chills. Denies: Chest Pain, Cough, Nausea/ Vomiting, Shortness of Breath - Related Data Allergies Allergy/AdvReac Type Severity Reaction Status Date / Time No Known Allergies Allergy Verified 02/20/15 08:46 Home Meds: Home Meds . 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 Other OB/BYN History: Patient has had a history of D&C in 2007 - Past Surgical History Female Surgical History: Reports: D&C Social & Family History - Family History Family Medical History: Noncontributory - Tobacco Use Smoking Status *Q: Never Smoker - Caffeine Use Caffeine Use: Reports: Coffee - Recreational Drug Use Recreational Drug Use: No ED ROS GENERAL - Review of Systems Review Of Systems: See Below Constitutional: Reports: No Symptoms HEENT: Reports: Other (Right chin cellulitis) Respiratory: Reports: No Symptoms Cardiovascular: Reports: No Symptoms Endocrine: Reports: No Symptoms GI/Abdominal: Reports: No Symptoms : Reports: No Symptoms Musculoskeletal: Reports: No Symptoms Skin: Reports: Other (Right chine cellulitis) ED EXAM, SKIN/RASH Exam: See Below Exam Limited By: No Limitations General Appearance: Alert, No Apparent Distress Ears: Normal External Exam Nose: Normal Inspection Throat/Mouth: Normal Inspection Head: Other (Erythema and edema with pain upon palpation to the right chin and it is hard for her to open her mouth wide.) Neck: Normal Inspection Respiratory/Chest: No Respiratory Distress, Lungs Clear, Normal Breath Sounds Cardiovascular: Regular Rate, Rhythm, No Edema, No Murmur GI/Abdominal: Soft, Non-Tender, No Organomegaly, No Mass Back Exam: Normal Inspection Extremities: Normal Inspection Neurological: Alert, Oriented, No Motor/Sensory Deficits Course - Vital Signs Last Recorded V/S: Last Vital Signs Temp 97.4 F 10/21/17 09:08 Pulse 104 H 10/21/17 09:08 Resp 18 10/21/17 09:08 BP 125/67 10/21/17 09:08 Pulse Ox 99 10/21/17 09:08 - Orders/Labs/Meds Orders: Active Orders 24 hr Category Date Time Status Cardiac Monitoring [RC] . DIRECTED Care 10/21/17 10:04 Active Peripheral IV Care [RC] . DIRECTED Care 10/21/17 10:05 Active Lactated Ringers [Ringers, Lactated] 1,000 ml Med 10/21/17 10:15 Active IV ASDIRECTED Sodium Chloride 0.9% [Saline Flush] Med 10/21/17 10:04 Active 10 ml FLUSH ASDIRECTED PRN Vancomycin 1.75 gm Med 10/21/17 10:30 Active Sodium Chloride 0.9% [Normal Saline] 500 ml IV ONETIME Peripheral IV Insertion Adult [OM.PC] Stat Oth 10/21/17 10:04 Ordered Medication Orders Lactated Ringer's (Ringers, Lactated) 1,000 mls @ 125 mls/hr IV ASDIRECTED MONTRELL Last Admin: 10/21/17 10:24 Dose: 125 mls/hr Vancomycin HCl 1.75 gm/ Sodium (Chloride) 500 mls @ 250 mls/hr IV ONETIME ONE Stop: 10/21/17 12:29 Last Admin: 10/21/17 10:49 Dose: 250 mls/hr Sodium Chloride (Saline Flush) 10 ml FLUSH ASDIRECTED PRN PRN Reason: Keep Vein Open Last Admin: 10/21/17 10:24 Dose: 10 ml Labs: Laboratory Tests 10/21/17 10/21/17 Range/Units 10:25 10:25 WBC 11.86 H (3.98-10.04) K/mm3 RBC 4.66 (3.98-5.22) M/mm3 Hgb 12.4 (11.2-15.7) gm/L Hct 37.8 (34.1-44.9) % MCV 81.1 (79.4-94.8) fl MCH 26.6 (25.6-32.2) pg MCHC 32.8 (32.2-35.5) g/dl RDW Std Deviation 37.7 (36.4-46.3) fL Plt Count 250 (182-369) K/mm3 MPV 11.2 (9.4-12.3) fl Neut % (Auto) 80.5 H (34.0-71.1) % Lymph % (Auto) 12.3 L (19.3-51.7) % [place] % (Auto) 6.3 (4.7-12.5) % Eos % (Auto) 0.5 L (0.7-5.8) Baso % (Auto) 0.1 (0.1-1.2) % Neut # (Auto) 9.55 H (1.56-6.13) K/mm3 Lymph # (Auto) 1.46 (1.18-3.74) K/mm3 [place] # (Auto) 0.75 H (0.24-0.36) K/mm3 Eos # (Auto) 0.06 (0.04-0.36) K/mm3 Baso # (Auto) 0.01 (0.01-0.08) K/mm3 Sodium 136 (136-145) mEq/L Potassium 3.5 (3.5-5.1) mEq/L Chloride 101 (98-107) mEq/L Carbon Dioxide 27 (21-32) mEq/L Anion Gap 11.5 (5-15) BUN 8 (7-18) mg/dL Creatinine 0.8 (0.55-1.02) mg/dL Est Cr Clr Drug Dosing 89.60 mL/min Estimated GFR (MDRD) > 60 (>60) mL/min BUN/Creatinine Ratio 10.0 L (14-18) Glucose 90 (74-106) mg/dL Calcium 8.8 (8.5-10.1) mg/dL Total Bilirubin 0.5 (0.2-1.0) mg/dL AST 64 H (15-37) U/L ALT 128 H (14-59) U/L Alkaline Phosphatase 126 H (46-116) U/L Total Protein 7.6 (6.4-8.2) g/dl Albumin 3.3 L (3.4-5.0) g/dl Globulin 4.3 gm/dL Albumin/Globulin Ratio 0.8 L (1-2) Meds: Medications Generic Name Dose Route Start Last Admin Trade Name Freq PRN Reason Stop Dose Admin Lactated Ringer's 1,000 mls @ 125 mls/hr 10/21/17 10:15 10/21/17 10:24 Ringers, Lactated IV 125 mls/hr ASDIRECTED MONTRELL Administration Vancomycin HCl 1.75 gm/ Sodium 500 mls @ 250 mls/hr 10/21/17 10:30 10/21/17 10:49 Chloride IV 10/21/17 12:29 250 mls/hr ONETIME ONE Administration Sodium Chloride 10 ml 10/21/17 10:04 10/21/17 10:24 Saline Flush FLUSH 10 ml ASDIRECTED PRN Administration Keep Vein Open Discontinued Medications Generic Name Dose Route Start Last Admin Trade Name Freq PRN Reason Stop Dose Admin Hydromorphone HCl 0.5 mg 10/21/17 10:05 10/21/17 10:24 Dilaudid IVPUSH 10/21/17 10:06 0.5 mg ONETIME ONE Administration Hydromorphone HCl 0.5 mg 10/21/17 10:52 10/21/17 10:59 Dilaudid IVPUSH 10/21/17 10:53 0.5 mg ONETIME ONE Administration - Re-Assessments/Exams Free Text/Narrative Re-Assessment/Exam: 10/21/17 11:30 I ordered an IV NS, vancomycin 1,750mg IV, and labs. I did not order blood cultures because she has been on antibiotics already. 10/21/17 11:32 Her WBC was elevated at 11.86. Her AST was elevated at 64. Her ALT was elevated at 128. His Alk Phos was elevated at 126. I feel she needs to be admitted. She failed outpatient therapy. When she was here a couple days ago, she was found to be . She thinks her LNMP was September 01 or . That would mean she is about [address] Camacho and he agreed to the admission. He wanted me to check with the components engineer OB if the meds we are using are okay. I talked with Dr Butterfield and he said the vancomycin is fine. He did agree to be on consult. Departure - Departure Time of Disposition: 11:35 Disposition: Admitted As Inpatient 64 Condition: Good Clinical Impression: Early stage of Cellulitis Qualifiers: Site of cellulitis: face Qualified Code(s): L03.211 - Cellulitis of face - Discharge Information Referrals: PCP,None [Primary Care Provider] - Forms: ED Department Discharge - My Orders Last 24 Hours: My Active Orders 10/21/17 10:04 Cardiac Monitoring [RC] . DIRECTED Sodium Chloride 0.9% [Saline Flush] 10 ml FLUSH ASDIRECTED PRN Peripheral IV Insertion Adult [OM.PC] Stat 10/21/17 10:05 Peripheral IV Care [RC] . DIRECTED 10/21/17 10:15 Lactated Ringers [Ringers, Lactated] 1,000 ml IV ASDIRECTED 10/21/17 10:30 Vancomycin 1.75 gm Sodium Chloride 0.9% [Normal Saline] 500 ml IV ONETIME - Assessment/Plan Last 24 Hours: My Active Orders 10/21/17 10:04 Cardiac Monitoring [RC] . DIRECTED Sodium Chloride 0.9% [Saline Flush] 10 ml FLUSH ASDIRECTED PRN Peripheral IV Insertion Adult [OM.PC] Stat 10/21/17 10:05 Peripheral IV Care [RC] . DIRECTED 10/21/17 10:15 Lactated Ringers [Ringers, Lactated] 1,000 ml IV ASDIRECTED 10/21/17 10:30 Vancomycin 1.75 gm Sodium Chloride 0.9% [Normal Saline] 500 ml IV ONETIME
[2017-10-21] MEDS ORDERED: Metoclopramide 10 MG/2 ML SDV IVPUSH ONE (11:45)
[2017-10-21] MEDS ORDERED: diphenhydrAMINE 50 MG/ML SDV IVPUSH ONE (12:44)
[2017-10-21] MEDS ORDERED: Albuterol/Ipratropium 3.0-0.5 MG/3 ML Neb Soln NEB PRN (13:05)
[2017-10-21] MEDS ORDERED: Polyethylene Glycol 3350 Powder 17 GM Packet PO PRN (13:05)
[2017-10-21] MEDS ORDERED: Docusate Sodium 100 MG Cap PO PRN (13:05)
[2017-10-21] MEDS ORDERED: Acetaminophen 325 MG Tab PO PRN (13:05)
[2017-10-21] MEDS ORDERED: Bisacodyl 5 MG Tab PO PRN (13:05)
[2017-10-21] MEDS ORDERED: diphenhydrAMINE/Zinc Acetate 1% Crm 28.3 GM Tube TOP PRN (13:09)
--- NOTE | 2017-10-21 13:09 | PCM.HP ---
H&P History of Present Illness - General Date of Service: 10/21/17 Admit Problem/Dx: Admission Diagnosis/Problem Admission Diagnosis/Problem Cellulitis Source of Information: Patient, Old Records, Police, Provider, RN Notes Reviewed History Limitations: Reports: No Limitations - Related Data Allergies/Adverse Reactions: Allergies Allergy/AdvReac Type Severity Reaction Status Date / Time No Known Allergies Allergy Verified 02/20/15 08:46 Home Medications: Home Meds . 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 Other OB/BYN History: Patient has had a history of D&C in 2007 - Past Surgical History Female Surgical History: Reports: D&C Social & Family History - Family History Family Medical History: Noncontributory - Tobacco Use Smoking Status *Q: Never Smoker - Caffeine Use Caffeine Use: Reports: Coffee - Recreational Drug Use Recreational Drug Use: No H&P Review of Systems - Review of Systems: Review Of Systems: See Below Exam - Exam Exam: See Below - Vital Signs Vital Signs: Last Vital Signs Temp 36.3 C 10/21/17 09:08 Pulse 104 H 10/21/17 09:08 Resp 18 10/21/17 09:08 BP 125/67 10/21/17 09:08 Pulse Ox 99 10/21/17 09:08 Weight: 68.039 kg - Patient Data Lab Results Last 24 hrs: Laboratory Results - last 24 hr 10/21/17 10/21/17 Range/Units 10:25 10:25 WBC 11.86 H (3.98-10.04) K/mm3 RBC 4.66 (3.98-5.22) M/mm3 Hgb 12.4 (11.2-15.7) gm/L Hct 37.8 (34.1-44.9) % MCV 81.1 (79.4-94.8) fl MCH 26.6 (25.6-32.2) pg MCHC 32.8 (32.2-35.5) g/dl RDW Std Deviation 37.7 (36.4-46.3) fL Plt Count 250 (182-369) K/mm3 MPV 11.2 (9.4-12.3) fl Neut % (Auto) 80.5 H (34.0-71.1) % Lymph % (Auto) 12.3 L (19.3-51.7) % [place] % (Auto) 6.3 (4.7-12.5) % Eos % (Auto) 0.5 L (0.7-5.8) Baso % (Auto) 0.1 (0.1-1.2) % Neut # (Auto) 9.55 H (1.56-6.13) K/mm3 Lymph # (Auto) 1.46 (1.18-3.74) K/mm3 [place] # (Auto) 0.75 H (0.24-0.36) K/mm3 Eos # (Auto) 0.06 (0.04-0.36) K/mm3 Baso # (Auto) 0.01 (0.01-0.08) K/mm3 Sodium 136 (136-145) mEq/L Potassium 3.5 (3.5-5.1) mEq/L Chloride 101 (98-107) mEq/L Carbon Dioxide 27 (21-32) mEq/L Anion Gap 11.5 (5-15) BUN 8 (7-18) mg/dL Creatinine 0.8 (0.55-1.02) mg/dL Est Cr Clr Drug Dosing 89.60 mL/min Estimated GFR (MDRD) > 60 (>60) mL/min BUN/Creatinine Ratio 10.0 L (14-18) Glucose 90 (74-106) mg/dL Calcium 8.8 (8.5-10.1) mg/dL Total Bilirubin 0.5 (0.2-1.0) mg/dL AST 64 H (15-37) U/L ALT 128 H (14-59) U/L Alkaline Phosphatase 126 H (46-116) U/L Total Protein 7.6 (6.4-8.2) g/dl Albumin 3.3 L (3.4-5.0) g/dl Globulin 4.3 gm/dL Albumin/Globulin Ratio 0.8 L (1-2) Result Diagrams: 10/21/17 10:25 10/21/17 10:25 Problem List Initiated/Reviewed/Updated: Yes Orders Last 24hrs: Active Orders 24 hr Category Date Time Status Patient Status [ADT] Routine ADT 10/21/17 12:37 Active Cardiac Monitoring [RC] . DIRECTED Care 10/21/17 10:04 Active Height and Weight [RC] DAILY Care 10/21/17 13:05 Ordered Intake and Output [RC] QSHIFT Care 10/21/17 13:06 Ordered Oxygen Therapy [RC] PRN Care 10/21/17 13:06 Ordered Peripheral IV Care [RC] . DIRECTED Care 10/21/17 10:05 Active RT Aerosol Therapy [RC] ASDIRECTED Care 10/21/17 13:07 Ordered Up ad Penny [RC] ASDIRECTED Care 10/21/17 13:05 Ordered VTE/DVT Education [RC] PER UNIT ROUTINE Care 10/21/17 13:06 Ordered Vital Signs [RC] Q4H Care 10/21/17 13:06 Ordered Regular Diet [DIET] Diet 10/21/17 Lunch Ordered BASIC METABOLIC PANEL,BMP [CHEM] AM Lab 10/22/17 05:11 Ordered BASIC METABOLIC PANEL,BMP [CHEM] AM Lab 10/23/17 05:11 Ordered BASIC METABOLIC PANEL,BMP [CHEM] AM Lab 10/24/17 05:11 Ordered BASIC METABOLIC PANEL,BMP [CHEM] AM Lab 10/25/17 05:11 Ordered C-REACTIVE PROTEIN [CHEM] AM Lab 10/22/17 05:11 Ordered C-REACTIVE PROTEIN [CHEM] AM Lab 10/23/17 05:11 Ordered C-REACTIVE PROTEIN [CHEM] AM Lab 10/24/17 05:11 Ordered C-REACTIVE PROTEIN [CHEM] AM Lab 10/25/17 05:11 Ordered CBC WITH AUTO DIFF [HEME] DAILY Lab 10/21/17 13:15 Ordered CBC WITH AUTO DIFF [HEME] DAILY Lab 10/22/17 13:15 Ordered CBC WITH AUTO DIFF [HEME] DAILY Lab 10/23/17 13:15 Ordered CBC WITH AUTO DIFF [HEME] DAILY Lab 10/24/17 13:15 Ordered CBC WITH AUTO DIFF [HEME] DAILY Lab 10/25/17 13:15 Ordered MAGNESIUM [CHEM] AM Lab 10/22/17 05:11 Ordered MAGNESIUM [CHEM] AM Lab 10/23/17 05:11 Ordered MAGNESIUM [CHEM] AM Lab 10/24/17 05:11 Ordered MAGNESIUM [CHEM] AM Lab 10/25/17 05:11 Ordered Acetaminophen [Tylenol] Med 10/21/17 13:05 Ordered 650 mg PO Q4H PRN Albuterol/Ipratropium [DuoNeb 3.0-0.5 MG/3 ML] Med 10/21/17 13:05 Ordered 3 ml NEB Q4H PRN Bisacodyl [Dulcolax] Med 10/21/17 13:05 Ordered 5 mg PO DAILY PRN Docusate Sodium [Colace] Med 10/21/17 13:05 Ordered 100 mg PO BID PRN Docusate Sodium/Sennosides [Senna Plus] Med 10/21/17 13:05 Ordered 1 tab PO BID PRN Lactated Ringers [Ringers, Lactated] 1,000 ml Med 10/21/17 10:15 Active IV ASDIRECTED Magnesium Rep Pharmacy to Dose [Pharmacy to Dose - Med 10/21/17 13:15 Ordered Magnesium Replacement] 1 dose .XX ASDIRECTED Polyethylene Glycol 3350 [MiraLAX] Med 10/21/17 13:05 Ordered 17 gm PO DAILY PRN Potassium Rep Pharmacy to Dose [Pharmacy to Dose - Med 10/21/17 13:15 Ordered Potassium Replacement] 1 dose .XX ASDIRECTED Sodium Chloride 0.9% [Saline Flush] Med 10/21/17 10:04 Active 10 ml FLUSH ASDIRECTED PRN Peripheral IV Insertion Adult [OM.PC] Stat Oth 10/21/17 10:04 Ordered Sequential Compression Device [OM.PC] Per Unit Routine Oth 10/21/17 13:06 Ordered Resuscitation Status Routine Resus Stat 10/21/17 13:05 Ordered Medication Orders Lactated Ringer's (Ringers, Lactated) 1,000 mls @ 125 mls/hr IV ASDIRECTED [facility] Last Admin: 10/21/17 10:24 Dose: 125 mls/hr Sodium Chloride (Saline Flush) 10 ml FLUSH ASDIRECTED PRN PRN Reason: Keep Vein Open Last Admin: 10/21/17 10:24 Dose: 10 ml
[2017-10-21] MEDS: Potassium Chloride 20 MEQ Tab.ER PO SCH ×2 (13:39→17:37)
--- NOTE | 2017-10-21 14:06 | PCM.HP ---
H&P History of Present Illness - General Date of Service: 10/21/17 Admit Problem/Dx: Admission Diagnosis/Problem Admission Diagnosis/Problem Cellulitis Source of Information: Patient, Family, Old Records, Provider, RN Notes Reviewed History Limitations: Reports: No Limitations - History of Present Illness Initial Comments - Free Text/Narative: This is a 27 yo female in early stage of who comes in for evaluation and treatment of facial edema. She was initially seen in and was treated with one time dose of Rocephin and discharged with oral antibiotic. However she reports no improvement of her chief of complaint. Today she came back to ED for worsening edema and now affecting her ability to open and close her mouth. Her initial work up in ED shows a CBC remarkable for WBC of 11.86, Neutrophils of 80.5%, Lymphocytes of 12.3% and Eosinophils of 0.5% . Her chemistry is significant for AST of 64, ALT of 128, Alk Phos of 126 and Albumin of 3.3. She is being admitted for medical management of facial cellulitis. She is full code. - Related Data Allergies/Adverse Reactions: Allergies Allergy/AdvReac Type Severity Reaction Status Date / Time No Known Allergies Allergy Verified 02/20/15 08:46 Home Medications: Home Meds . 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 3 live , 3 miscarriages. Currently . - Infectious Disease History Infectious Disease History: Reports: Chicken Pox, Influenza - Past Surgical History Female Surgical History: Reports: D&C Social & Family History - Family History Family Medical History: Noncontributory Cardiac: Reports: Heart Murmur Musculoskeletal: Reports: RA Endocrine/Metabolic: Reports: Diabetes, Type I Hematologic: Reports: Anemia - Tobacco Use Smoking Status *Q: Never Smoker - Caffeine Use Caffeine Use: Reports: Coffee - Recreational Drug Use Recreational Drug Use: No H&P Review of Systems - Review of Systems: Review Of Systems: See Below General: Reports: No Symptoms HEENT: Denies: Contact Lenses, Dysphasia, Ear Pain, Eye Pain, Headaches, Rhinitis, Post Nasal Drip, Sinus Congestion, Sore Throat Pulmonary: Denies: Shortness of Breath, Pleuritic Chest Pain, Cough Cardiovascular: Denies: Chest Pain Gastrointestinal: Denies: Abdominal Pain, Nausea, Vomiting Genitourinary: Reports: No Symptoms Musculoskeletal: Reports: Other (lower mouth pain). Denies: Neck Pain, Joint Pain, Joint Swelling, Muscle Stiffness Skin: Reports: Erythema, Lesions Psychiatric: Denies: Depression, Mood Lability, Anxiety, Agitation Neurological: Denies: Confusion, Difficulty Walking, Weakness, Gait Disturbance Hematologic/Lymphatic: Reports: No Symptoms Immunologic: Reports: No Symptoms Exam - Exam Exam: See Below - Vital Signs Vital Signs: Last Vital Signs Temp 36.4 C 10/21/17 12:57 Pulse 77 10/21/17 12:57 Resp 16 10/21/17 12:57 BP 98/56 L 10/21/17 12:57 Pulse Ox 97 10/21/17 12:57 Weight: 68.039 kg - Exam General: Alert, Oriented, Cooperative, Mild Distress, Moderate Distress HEENT: Conjunctiva Clear, EOMI, Hearing Intact, Mucosa Moist & Kula, Nares Patent, Normal Nasal Septum, Pupils Equal, Pupils Reactive Neck: Supple, Trachea Midline, +2 Carotid Pulse wo Bruit Lungs: Clear to Auscultation, Normal Respiratory Effort Cardiovascular: Regular Rate, Regular Rhythm GI/Abdominal Exam: Normal Bowel Sounds, Soft, Non-Tender, No Organomegaly, No Distention, No Abnormal Bruit (Female) Exam: Deferred Rectal (Female) Exam: Deferred Back Exam: Normal Inspection, Full Range of Motion Extremities: Normal Inspection, Normal Range of Motion, Non-Tender, No Pedal Edema, Normal Capillary Refill Peripheral Pulses: 3+: Posterior Tibial (L), Posterior Tibial (R), Dorsalis Pedis (L), Dorsalis Pedis (R) Skin: Warm, Dry, Intact Skin Alteration Location (Drawings Not To Scale): 1 - lower frontal jaw bone (mentalo-labialis) with edema, erythema, hot to the touch, small black spot at the middle, non-fluctuant and tenderness on palpation Neuro Extensive - Mental Status: Oriented x3, Normal Cognition, Memory Intact Neuro Extensive - Motor, Sensory, Reflexes: CN II-XII Intact, Normal Gait DTR: 2+: Patella (L), Patella (R) Psychiatric: Alert, Normal Affect, Normal Mood - Patient Data Lab Results Last 24 hrs: Laboratory Results - last 24 hr 10/21/17 10/21/17 Range/Units 10:25 10:25 WBC 11.86 H (3.98-10.04) K/mm3 RBC 4.66 (3.98-5.22) M/mm3 Hgb 12.4 (11.2-15.7) gm/L Hct 37.8 (34.1-44.9) % MCV 81.1 (79.4-94.8) fl MCH 26.6 (25.6-32.2) pg MCHC 32.8 (32.2-35.5) g/dl RDW Std Deviation 37.7 (36.4-46.3) fL Plt Count 250 (182-369) K/mm3 MPV 11.2 (9.4-12.3) fl Neut % (Auto) 80.5 H (34.0-71.1) % Lymph % (Auto) 12.3 L (19.3-51.7) % Brooke % (Auto) 6.3 (4.7-12.5) % Eos % (Auto) 0.5 L (0.7-5.8) Baso % (Auto) 0.1 (0.1-1.2) % Neut # (Auto) 9.55 H (1.56-6.13) K/mm3 Lymph # (Auto) 1.46 (1.18-3.74) K/mm3 Brooke # (Auto) 0.75 H (0.24-0.36) K/mm3 Eos # (Auto) 0.06 (0.04-0.36) K/mm3 Baso # (Auto) 0.01 (0.01-0.08) K/mm3 Sodium 136 (136-145) mEq/L Potassium 3.5 (3.5-5.1) mEq/L Chloride 101 (98-107) mEq/L Carbon Dioxide 27 (21-32) mEq/L Anion Gap 11.5 (5-15) BUN 8 (7-18) mg/dL Creatinine 0.8 (0.55-1.02) mg/dL Est Cr Clr Drug Dosing 89.60 mL/min Estimated GFR (MDRD) > 60 (>60) mL/min BUN/Creatinine Ratio 10.0 L (14-18) Glucose 90 (74-106) mg/dL Calcium 8.8 (8.5-10.1) mg/dL Total Bilirubin 0.5 (0.2-1.0) mg/dL AST 64 H (15-37) U/L ALT 128 H (14-59) U/L Alkaline Phosphatase 126 H (46-116) U/L Total Protein 7.6 (6.4-8.2) g/dl Albumin 3.3 L (3.4-5.0) g/dl Globulin 4.3 gm/dL Albumin/Globulin Ratio 0.8 L (1-2) Result Diagrams: 10/21/17 10:25 10/21/17 10:25 Problem List Initiated/Reviewed/Updated: Yes Orders Last 24hrs: Active Orders 24 hr Category Date Time Status Patient Status [ADT] Routine ADT 10/21/17 12:37 Active Cardiac Monitoring [RC] . DIRECTED Care 10/21/17 10:04 Active Height and Weight [RC] DAILY Care 10/21/17 13:05 Active Intake and Output [RC] QSHIFT Care 10/21/17 13:06 Active Oxygen Therapy [RC] PRN Care 10/21/17 13:06 Active Peripheral IV Care [RC] . DIRECTED Care 10/21/17 10:05 Active RT Aerosol Therapy [RC] ASDIRECTED Care 10/21/17 13:07 Active Up ad Penny [RC] ASDIRECTED Care 10/21/17 13:05 Active VTE/DVT Education [RC] PER UNIT ROUTINE Care 10/21/17 13:06 Active Vital Signs [RC] Q4H Care 10/21/17 13:06 Active Regular Diet [DIET] Diet 10/21/17 Lunch Active BASIC METABOLIC PANEL,BMP [CHEM] AM Lab 10/22/17 05:11 Ordered BASIC METABOLIC PANEL,BMP [CHEM] AM Lab 10/23/17 05:11 Ordered BASIC METABOLIC PANEL,BMP [CHEM] AM Lab 10/24/17 05:11 Ordered BASIC METABOLIC PANEL,BMP [CHEM] AM Lab 10/25/17 05:11 Ordered C-REACTIVE PROTEIN [CHEM] AM Lab 10/22/17 05:11 Ordered C-REACTIVE PROTEIN [CHEM] AM Lab 10/23/17 05:11 Ordered C-REACTIVE PROTEIN [CHEM] AM Lab 10/24/17 05:11 Ordered C-REACTIVE PROTEIN [CHEM] AM Lab 10/25/17 05:11 Ordered CBC WITH AUTO DIFF [HEME] AM Lab 10/22/17 05:11 Ordered CBC WITH AUTO DIFF [HEME] AM Lab 10/23/17 05:11 Ordered CBC WITH AUTO DIFF [HEME] AM Lab 10/24/17 05:11 Ordered CBC WITH AUTO DIFF [HEME] AM Lab 10/25/17 05:11 Ordered MAGNESIUM [CHEM] AM Lab 10/22/17 05:11 Ordered MAGNESIUM [CHEM] AM Lab 10/23/17 05:11 Ordered MAGNESIUM [CHEM] AM Lab 10/24/17 05:11 Ordered MAGNESIUM [CHEM] AM Lab 10/25/17 05:11 Ordered Acetaminophen [Tylenol] Med 10/21/17 13:05 Active 650 mg PO Q4H PRN Albuterol/Ipratropium [DuoNeb 3.0-0.5 MG/3 ML] Med 10/21/17 13:05 Active 3 ml NEB Q4H PRN Bisacodyl [Dulcolax] Med 10/21/17 13:05 Active 5 mg PO DAILY PRN Docusate Sodium [Colace] Med 10/21/17 13:05 Active 100 mg PO BID PRN Docusate Sodium/Sennosides [Senna Plus] Med 10/21/17 13:05 Active 1 tab PO BID PRN Lactated Ringers [Ringers, Lactated] 1,000 ml Med 10/21/17 10:15 Active IV ASDIRECTED Magnesium Rep Pharmacy to Dose [Pharmacy to Dose - Med 10/21/17 13:15 Active Magnesium Replacement] 0 dose .XX ASDIRECTED PRN Polyethylene Glycol 3350 [MiraLAX] Med 10/21/17 13:05 Active 17 gm PO DAILY PRN Potassium Chloride [Klor-Con M20] Med 10/21/17 14:00 Active 40 meq PO Q4H Potassium Rep Pharmacy to Dose [Pharmacy to Dose - Med 10/21/17 13:15 Active Potassium Replacement] 0 dose .XX ASDIRECTED PRN Sodium Chloride 0.9% [Saline Flush] Med 10/21/17 10:04 Active 10 ml FLUSH ASDIRECTED PRN Vancomycin Pharmacy to Dose [Pharmacy to Dose - Med 10/21/17 13:35 Active Vancomycin] 0 dose .XX ASDIRECTED PRN diphenhydrAMINE/Zinc Acetate [Benadryl Itch Stopping Med 10/21/17 13:09 Active Crm] 0 gm TOP Q4H PRN Peripheral IV Insertion Adult [OM.PC] Stat Oth 10/21/17 10:04 Ordered Sequential Compression Device [OM.PC] Per Unit Routine Oth 10/21/17 13:06 Ordered Resuscitation Status Routine Resus Stat 10/21/17 13:05 Ordered Medication Orders Acetaminophen (Tylenol) 650 mg PO Q4H PRN PRN Reason: Other Albuterol/Ipratropium (Duoneb 3.0-0.5 Mg/3 Ml) 3 ml NEB Q4H PRN PRN Reason: Shortness Of Breath/wheezing Bisacodyl (Dulcolax) 5 mg PO DAILY PRN PRN Reason: Constipation Docusate Sodium (Colace) 100 mg PO BID PRN PRN Reason: Constipation Lactated Ringer's (Ringers, Lactated) 1,000 mls @ 125 mls/hr IV ASDIRECTED [facility] Last Admin: 10/21/17 10:24 Dose: 125 mls/hr Magnesium Sulfate (Pharmacy To Dose - Magnesium Replacement) 0 dose .XX ASDIRECTED PRN PRN Reason: RX TO WATCH MAG LEVELS Polyethylene Glycol (Miralax) 17 gm PO DAILY PRN PRN Reason: Constipation Potassium Chloride (Pharmacy To Dose - Potassium Replacement) 0 dose .XX ASDIRECTED PRN PRN Reason: RX TO WATCH K LEVELS Potassium Chloride (Klor-Con M20) 40 meq PO Q4H [facility] Stop: 10/21/17 18:01 Last Admin: 10/21/17 13:39 Dose: 40 meq Senna/Docusate Sodium (Senna Plus) 1 tab PO BID PRN PRN Reason: Constipation Sodium Chloride (Saline Flush) 10 ml FLUSH ASDIRECTED PRN PRN Reason: Keep Vein Open Last Admin: 10/21/17 10:24 Dose: 10 ml Vancomycin HCl (Pharmacy To Dose - Vancomycin) 0 dose .XX ASDIRECTED PRN PRN Reason: RX TO DOSE VANCOMYCIN Zinc Acetate/Diphenhydramine (Benadryl Itch Stopping Crm) 0 gm TOP Q4H PRN PRN Reason: Itching Assessment/Plan Comment:: Assessment/Plan: Acute: Facial Cellulitis - 2/2 Infected Acne - CT contraindicated due to - Received IV Vancomycin in ED x 1 - Cold compress TID - Consult OB for recommendations Early - 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
[2017-10-21] MEDS ORDERED: Acetaminophen/oxyCODONE 325-5 MG Tab PO ONE ×2 (17:18→17:20)
--- NOTE | 2017-10-21 19:48 | PCM.CONS ---
H&P History of Present Illness - General Date of Service: 10/21/17 Admit Problem/Dx: Admission Diagnosis/Problem Admission Diagnosis/Problem Cellulitis Source of Information: Patient History Limitations: Reports: No Limitations - History of Present Illness Initial Comments - Free Text/Narative: Yenni Tadeo is a 27 year old at approximately 7 weeks 0 days gestational age by LMP who had presented to the emergency department for concern about worsening cellulitis on her chin. She was previously seen in the emergency department over the weekend and was diagnosed with a cellulitis around an infected acne lesion on her chin and was given Rocephin and Keflex. She reports that today she started having worsening pain and no improvement of her infection on her chin. She denies any fevers or chills. Denies any nausea or vomiting. Reports that she has had decreased amounts of oral intake due to pain with chewing. Patient was incidentally found to be on her ED visit over the weekend and her primary physician requested consult for assist with care during this hospitalization with current . Onset of Symptoms: Reports: Gradual Symptom Onset Date: 10/18/17 Duration of Symptoms: Reports: Day(s):, Getting Worse Location: Reports: Face (right chin) Front/Back Full Body Diagram: 1 - Right chin Quality: Reports: Ache, Throbbing Severity: Moderate Improves with: Reports: None Worsens with: Reports: Movement Associated Symptoms: Denies: Fever/Chills, Headaches, Nausea/Vomiting R chin Pain Score (Numeric/FACES): 5 - Related Data Allergies/Adverse Reactions: Allergies Allergy/AdvReac Type Severity Reaction Status Date / Time No Known Allergies Allergy Verified 02/20/15 08:46 Home Medications: Home Meds . 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 3 live , 3 miscarriages. Currently . - Infectious Disease History Infectious Disease History: Reports: Chicken Pox, Influenza - Past Surgical History Female Surgical History: Reports: D&C Social & Family History - Family History Family Medical History: Noncontributory Cardiac: Reports: Heart Murmur Musculoskeletal: Reports: RA Endocrine/Metabolic: Reports: Diabetes, Type I Hematologic: Reports: Anemia - Tobacco Use Smoking Status *Q: Never Smoker Years of Tobacco use: 14 Used Tobacco, but Quit: Yes Month/Year Tobacco Last Used: 10/13 Second Hand Smoke Exposure: No - Caffeine Use Caffeine Use: Reports: Coffee - Recreational Drug Use Recreational Drug Use: No H&P Review of Systems - Review of Systems: Review Of Systems: See Below General: Denies: Fever, Chills, Malaise, Weakness HEENT: Reports: Other (Pain over chin and with moving mouth). Denies: Visual Changes Pulmonary: Denies: Cough Gastrointestinal: Denies: Abdominal Pain, Constipation, Diarrhea, Nausea, Vomiting Genitourinary: Denies: Dysuria, Frequency, Burning, Pain, Urgency Psychiatric: Denies: Confusion Exam - Exam Exam: See Below - Vital Signs Vital Signs: Last Vital Signs Temp 37.1 C 10/21/17 16:00 Pulse 71 10/21/17 17:05 Resp 16 10/21/17 17:05 BP 109/69 10/21/17 17:05 Pulse Ox 99 10/21/17 17:05 Weight: 68.039 kg - Exam General: Alert, Oriented HEENT: Conjunctiva Clear, EOMI, Other (Erythema surrounding lesion on right chin , previously marked and within this marking) Neck: Supple, Trachea Midline Lungs: Clear to Auscultation, Normal Respiratory Effort Cardiovascular: Regular Rate, Regular Rhythm GI/Abdominal Exam: Soft, Non-Tender, No Distention Extremities: Normal Range of Motion, No Pedal Edema Skin: Warm, Dry, Intact, Other (Erythematous lesion on right chin as above) Psychiatric: Alert, Normal Affect, Normal Mood - Patient Data Lab Results Last 24 hrs: Laboratory Results - last 24 hr 10/21/17 10/21/17 Range/Units 10:25 10:25 WBC 11.86 H (3.98-10.04) K/mm3 RBC 4.66 (3.98-5.22) M/mm3 Hgb 12.4 (11.2-15.7) gm/L Hct 37.8 (34.1-44.9) % MCV 81.1 (79.4-94.8) fl MCH 26.6 (25.6-32.2) pg MCHC 32.8 (32.2-35.5) g/dl RDW Std Deviation 37.7 (36.4-46.3) fL Plt Count 250 (182-369) K/mm3 MPV 11.2 (9.4-12.3) fl Neut % (Auto) 80.5 H (34.0-71.1) % Lymph % (Auto) 12.3 L (19.3-51.7) % Kerr % (Auto) 6.3 (4.7-12.5) % Eos % (Auto) 0.5 L (0.7-5.8) Baso % (Auto) 0.1 (0.1-1.2) % Neut # (Auto) 9.55 H (1.56-6.13) K/mm3 Lymph # (Auto) 1.46 (1.18-3.74) K/mm3 Kerr # (Auto) 0.75 H (0.24-0.36) K/mm3 Eos # (Auto) 0.06 (0.04-0.36) K/mm3 Baso # (Auto) 0.01 (0.01-0.08) K/mm3 Sodium 136 (136-145) mEq/L Potassium 3.5 (3.5-5.1) mEq/L Chloride 101 (98-107) mEq/L Carbon Dioxide 27 (21-32) mEq/L Anion Gap 11.5 (5-15) BUN 8 (7-18) mg/dL Creatinine 0.8 (0.55-1.02) mg/dL Est Cr Clr Drug Dosing 89.60 mL/min Estimated GFR (MDRD) > 60 (>60) mL/min BUN/Creatinine Ratio 10.0 L (14-18) Glucose 90 (74-106) mg/dL Calcium 8.8 (8.5-10.1) mg/dL Total Bilirubin 0.5 (0.2-1.0) mg/dL AST 64 H (15-37) U/L ALT 128 H (14-59) U/L Alkaline Phosphatase 126 H (46-116) U/L Total Protein 7.6 (6.4-8.2) g/dl Albumin 3.3 L (3.4-5.0) g/dl Globulin 4.3 gm/dL Albumin/Globulin Ratio 0.8 L (1-2) Result Diagrams: 10/21/17 10:25 10/21/17 10:25 Consult PN Assessment/Plan Procedures: Procedures CHORIONIC GONADOTROPIN ASSAY (06/17/14) COMPLETE CBC W/AUTO DIFF WBC (06/17/14) COMPREHEN METABOLIC PANEL (06/17/14) DRUG TEST PRSMV DIR OPT OBS (02/21/17) EMERGENCY DEPT VISIT (11/16/16) EMERGENCY DEPT VISIT (02/20/15) EMERGENCY DEPT VISIT (06/17/14) EMERGENCY DEPT VISIT (05/26/14) NON-STRESS TEST (02/21/17) HYDRATE IV INFUSION ADD-ON (06/17/14) ROUTINE VENIPUNCTURE (06/17/14) THER/PROPH/DIAG INJ IV PUSH (06/17/14) URINALYSIS AUTO W/O SCOPE (02/21/17) US EXAM PELVIC LIMITED (06/17/14) X-RAY EXAM OF FOOT (12/13/14) X-RAY EXAM OF HAND (02/20/15) (1) Cellulitis SNOMED Code(s): 939843389 Code(s): L03.90 - CELLULITIS, UNSPECIFIED Current Visit: Yes Qualifiers: Site of cellulitis: face Qualified Code(s): L03.211 - Cellulitis of face (2) Early stage of SNOMED Code(s): 127338379 Code(s): Z34.90 - ENCNTR FOR SUPRVSN OF NORMAL , UNSP, UNSP TRIMESTER Current Visit: Yes Problem List Initiated/Reviewed/Updated: Yes My Orders Last 24 Hours: My Active Orders 10/21/17 17:18 Ice Therapy [OM.PC] Routine Requesting Provider: Catalina Camacho MD Date Consult Requested: 10/21/17 Reason for Consult: Assist with care of patient Patient History Reviewed: Yes Admission H&P Reviewed: Yes Consult Result/Summary:: * Agree with assessment the patient likely has cellulitis in the right chin that has failed previous antibiotic therapy. Suspect that this may be MRSA infection. Recommendations would be similar for non patient including IV antibiotics such as vancomycin or clindamycin. These are both safe to use in . Once patient is discharged I would recommend use of clindamycin by mouth for treatment as outpatient antibiotics. This is safe to use in . Would not recommend use of Bactrim in early as it has been shown to be linked to some congenital defects. * Recommend for patient to receive pain management with Tylenol and may also use Percocet as needed for more severe pain. If pain is severe and not controlled with Percocet consider adding IV narcotics such as morphine or Dilaudid to her pain regimen. Would recommend avoid use of ibuprofen during . * Would recommend for daily vitamin for this patient * Recommend use of Zofran either IV or by mouth for initial treatment of nausea and if continues to have nausea despite use of this medication you could consider adding one of Phenergan, Reglan or Compazine. * Patient without signs or symptoms of threatened . Would recommend for her to establish care in outpatient clinic with obstetrical provider in 1-2 weeks after discharge. If patient begins to have concerning symptoms for a threatened miscarriage then would recommend to obtain transvaginal ultrasound to check on the status of the . * Would recommend for regular diet as tolerated. Patient may have soft diet while she has difficulty chewing and could consider supplementation with high- calorie nutritional supplements such as Ensure. * Recommend for activity as tolerated. Patient may shower. * SCDs for DVT prophylaxis. Thank you for consulting me on this interesting case and for care of this patient. No additional recommendations except as above. Will sign off from care of this patient unless change in her status necessitates further consult. Miguel Butterfield M.D. 9:26 PM 10/21/2017 Notified Requestor: Yes Time Spent (in minutes): 20
[2017-10-22] MEDS: Acetaminophen/oxyCODONE 325-5 MG Tab PO PRN ×5 (00:55→19:04)
[2017-10-22] MEDS: Lactated Ringers 1,000 ML IV SCH (04:37)
--- NOTE | 2017-10-22 08:22 | PCM.PN ---
- General Info Date of Service: 10/22/17 Admission Dx/Problem (Free Text): Admission Diagnosis/Problem Admission Diagnosis/Problem Cellulitis Subjective Update: In to see Yenni. She reports her pain is still 7/10 but manageable. She is able to talk better today per Dr. Camacho. Erythema appears about the same as yesterday per demarcation lines. Labs look good. Will continue current treatment plan until at least tomorrow. She has no concerns. Nursing has no concerns. Functional Status: Reports: Pain Controlled, Tolerating Diet, Ambulating, Urinating. Denies: New Symptoms - Review of Systems General: Reports: No Symptoms. Denies: Fever, Weakness, Fatigue, Malaise, Chills HEENT: Reports: No Symptoms. Denies: Eye Pain, Sinus Congestion, Sore Throat Pulmonary: Reports: No Symptoms. Denies: Shortness of Breath, Cough, Sputum, Wheezing Cardiovascular: Reports: No Symptoms. Denies: Chest Pain, Palpitations, Dyspnea on Exertion, Edema, Lightheadedness Gastrointestinal: Reports: No Symptoms. Denies: Abdominal Pain, Constipation, Decreased Appetite, Diarrhea, Nausea, Vomiting Genitourinary: Reports: No Symptoms. Denies: Dysuria, Frequency, Burning, Pain Musculoskeletal: Reports: No Symptoms Skin: Reports: No Symptoms Neurological: Reports: No Symptoms. Denies: Confusion, Headache, Numbness, Pre- Existing Deficit, Seizure, Syncope, Tingling, Trouble Speaking, Difficulty Walking, Weakness, Gait Disturbance Psychiatric: Reports: No Symptoms - Patient Data Vitals - Most Recent: Last Vital Signs Temp 97.9 F 10/22/17 07:53 Pulse 66 10/22/17 07:53 Resp 16 10/22/17 07:53 BP 108/49 L 10/22/17 07:53 Pulse Ox 97 10/22/17 07:53 Weight - Most Recent: 157 lb 12.8 oz I&O - Last 24 Hours: Intake & Output 10/21/17 10/22/17 10/22/17 22:59 06:59 14:59 Intake Total 1656 1813 Output Total 1000 Balance 1656 813 Lab Results Last 24 Hours: Laboratory Results - last 24 hr 10/21/17 10/21/17 10/22/17 Range/Units 10:25 10:25 06:04 WBC 11.86 H (3.98-10.04) K/mm3 RBC 4.66 (3.98-5.22) M/mm3 Hgb 12.4 (11.2-15.7) gm/L Hct 37.8 (34.1-44.9) % MCV 81.1 (79.4-94.8) fl MCH 26.6 (25.6-32.2) pg MCHC 32.8 (32.2-35.5) g/dl RDW Std Deviation 37.7 (36.4-46.3) fL Plt Count 250 (182-369) K/mm3 MPV 11.2 (9.4-12.3) fl Neut % (Auto) 80.5 H (34.0-71.1) % Lymph % (Auto) 12.3 L (19.3-51.7) % [place] % (Auto) 6.3 (4.7-12.5) % Eos % (Auto) 0.5 L (0.7-5.8) Baso % (Auto) 0.1 (0.1-1.2) % Neut # (Auto) 9.55 H (1.56-6.13) K/mm3 Lymph # (Auto) 1.46 (1.18-3.74) K/mm3 [place] # (Auto) 0.75 H (0.24-0.36) K/mm3 Eos # (Auto) 0.06 (0.04-0.36) K/mm3 Baso # (Auto) 0.01 (0.01-0.08) K/mm3 Sodium 136 135 L (136-145) mEq/L Potassium 3.5 3.9 (3.5-5.1) mEq/L Chloride 101 103 (98-107) mEq/L Carbon Dioxide 27 25 (21-32) mEq/L Anion Gap 11.5 10.9 (5-15) BUN 8 4 L (7-18) mg/dL Creatinine 0.8 0.6 (0.55-1.02) mg/dL Est Cr Clr Drug Dosing 89.60 119.47 mL/min Estimated GFR (MDRD) > 60 > 60 (>60) mL/min BUN/Creatinine Ratio 10.0 L 6.7 L (14-18) Glucose 90 85 (74-106) mg/dL Calcium 8.8 8.5 (8.5-10.1) mg/dL Magnesium 1.8 (1.8-2.4) mg/dl Total Bilirubin 0.5 (0.2-1.0) mg/dL AST 64 H (15-37) U/L ALT 128 H (14-59) U/L Alkaline Phosphatase 126 H (46-116) U/L C-Reactive Protein 9.6 H* (<1.0) mg/dL Total Protein 7.6 (6.4-8.2) g/dl Albumin 3.3 L (3.4-5.0) g/dl Globulin 4.3 gm/dL Albumin/Globulin Ratio 0.8 L (1-2) //18 Range/Units 06:14 WBC 8.69 (3.98-10.04) K/mm3 RBC 4.26 (3.98-5.22) M/mm3 Hgb 11.3 (11.2-15.7) gm/L Hct 34.7 (34.1-44.9) % MCV 81.5 (79.4-94.8) fl MCH 26.5 (25.6-32.2) pg MCHC 32.6 (32.2-35.5) g/dl RDW Std Deviation 37.7 (36.4-46.3) fL Plt Count 237 (182-369) K/mm3 MPV 11.6 (9.4-12.3) fl Neut % (Auto) 62.4 (34.0-71.1) % Lymph % (Auto) 29.2 (19.3-51.7) % [place] % (Auto) 6.7 (4.7-12.5) % Eos % (Auto) 1.5 (0.7-5.8) Baso % (Auto) 0.1 (0.1-1.2) % Neut # (Auto) 5.42 (1.56-6.13) K/mm3 Lymph # (Auto) 2.54 (1.18-3.74) K/mm3 [place] # (Auto) 0.58 H (0.24-0.36) K/mm3 Eos # (Auto) 0.13 (0.04-0.36) K/mm3 Baso # (Auto) 0.01 (0.01-0.08) K/mm3 Sodium (136-145) mEq/L Potassium (3.5-5.1) mEq/L Chloride (98-107) mEq/L Carbon Dioxide (21-32) mEq/L Anion Gap (5-15) BUN (7-18) mg/dL Creatinine (0.55-1.02) mg/dL Est Cr Clr Drug Dosing mL/min Estimated GFR (MDRD) (>60) mL/min BUN/Creatinine Ratio (14-18) Glucose (74-106) mg/dL Calcium (8.5-10.1) mg/dL Magnesium (1.8-2.4) mg/dl Total Bilirubin (0.2-1.0) mg/dL AST (15-37) U/L ALT (14-59) U/L Alkaline Phosphatase (46-116) U/L C-Reactive Protein (<1.0) mg/dL Total Protein (6.4-8.2) g/dl Albumin (3.4-5.0) g/dl Globulin gm/dL Albumin/Globulin Ratio (1-2) Med Orders - Current: Current Medications Acetaminophen (Tylenol) 650 mg PO Q4H PRN PRN Reason: Other Albuterol/Ipratropium (Duoneb 3.0-0.5 Mg/3 Ml) 3 ml NEB Q4H PRN PRN Reason: Shortness Of Breath/wheezing Bisacodyl (Dulcolax) 5 mg PO DAILY PRN PRN Reason: Constipation Docusate Sodium (Colace) 100 mg PO BID PRN PRN Reason: Constipation Lactated Ringer's (Ringers, Lactated) 1,000 mls @ 125 mls/hr IV ASDIRECTED [facility] Last Admin: 10/22/17 04:37 Dose: 125 mls/hr Vancomycin HCl 1 gm/ Sodium (Chloride) 250 mls @ 250 mls/hr IV Q8H [facility] Last Admin: 10/22/17 03:34 Dose: 250 mls/hr Magnesium Sulfate (Pharmacy To Dose - Magnesium Replacement) 0 dose .XX ASDIRECTED PRN PRN Reason: RX TO WATCH MAG LEVELS Oxycodone/Acetaminophen (Percocet 325-5 Mg) 1 tab PO Q4H PRN PRN Reason: Pain Last Admin: 10/22/17 05:55 Dose: 1 tab Polyethylene Glycol (Miralax) 17 gm PO DAILY PRN PRN Reason: Constipation Potassium Chloride (Pharmacy To Dose - Potassium Replacement) 0 dose .XX ASDIRECTED PRN PRN Reason: RX TO WATCH K LEVELS Prenat Multivit/[place]/Iron/Folic Ac ( Plus Iron) 1 each PO DAILY [facility] Saccharomyces Boulardii (Florastor) 500 mg PO DAILY [facility] Senna/Docusate Sodium (Senna Plus) 1 tab PO BID PRN PRN Reason: Constipation Sodium Chloride (Saline Flush) 10 ml FLUSH ASDIRECTED PRN PRN Reason: Keep Vein Open Last Admin: 10/21/17 10:24 Dose: 10 ml Vancomycin HCl (Pharmacy To Dose - Vancomycin) 0 dose .XX ASDIRECTED PRN PRN Reason: RX TO DOSE VANCOMYCIN Zinc Acetate/Diphenhydramine (Benadryl Itch Stopping Crm) 0 gm TOP Q4H PRN PRN Reason: Itching Discontinued Medications Diphenhydramine HCl (Benadryl) 50 mg IVPUSH ONETIME ONE Stop: 10/21/17 12:45 Last Admin: 10/21/17 12:50 Dose: 50 mg Hydromorphone HCl (Dilaudid) 0.5 mg IVPUSH ONETIME ONE Stop: 10/21/17 10:06 Last Admin: 10/21/17 10:24 Dose: 0.5 mg Hydromorphone HCl (Dilaudid) 0.5 mg IVPUSH ONETIME ONE Stop: 10/21/17 10:53 Last Admin: 10/21/17 10:59 Dose: 0.5 mg Hydromorphone HCl (Dilaudid) 0.5 mg IVPUSH ONETIME ONE Stop: 10/21/17 12:34 Last Admin: 10/21/17 12:40 Dose: 0.5 mg Vancomycin HCl 1.75 gm/ Sodium (Chloride) 500 mls @ 250 mls/hr IV ONETIME ONE Stop: 10/21/17 12:29 Last Admin: 10/21/17 10:49 Dose: 250 mls/hr Metoclopramide HCl (Reglan) 10 mg IVPUSH ONETIME ONE Stop: 10/21/17 11:46 Last Admin: 10/21/17 11:54 Dose: 10 mg Oxycodone/Acetaminophen (Percocet 325-5 Mg) 2 tab PO ONETIME ONE Stop: 10/21/17 17:19 Last Admin: 10/21/17 17:22 Dose: Not Given Oxycodone/Acetaminophen (Percocet 325-5 Mg) 2 tab PO ONETIME ONE Stop: 10/21/17 17:21 Last Admin: 10/21/17 17:38 Dose: 2 tab Potassium Chloride (Klor-Con M20) 40 meq PO Q4H [facility] Stop: 10/21/17 18:01 Last Admin: 10/21/17 17:37 Dose: 40 meq - Exam Quality Assessment: DVT Prophylaxis General: Alert, Oriented, Cooperative, No Acute Distress HEENT: Pupils Equal, Pupils Reactive, EOMI, Mucous Membr. Moist/[place] Neck: Supple, Trachea Midline, No JVD Lungs: Clear to Auscultation, Normal Respiratory Effort Cardiovascular: Regular Rate, Regular Rhythm GI/Abdominal Exam: Normal Bowel Sounds, Soft, Non-Tender, Pelvis Stable (Female) Exam: Deferred Back Exam: Normal Inspection, Full Range of Motion Extremities: Normal Inspection, Normal Range of Motion, Non-Tender, No Pedal Edema, Normal Capillary Refill Peripheral Pulses: 2+: Radial (L), Radial (R), Posterior Tibial (L), Posterior Tibial (R), Dorsalis Pedis (L), Dorsalis Pedis (R) Skin: Warm, Dry, Intact, Other (cellulitis to left chin ) Wound/Incisions: Healing Well Psy/Mental Status: Alert, Normal Affect, Normal Mood - Problem List & Annotations (1) Cellulitis SNOMED Code(s): 019716205 Code(s): L03.90 - CELLULITIS, UNSPECIFIED Status: Acute Priority: High Current Visit: Yes Qualifiers: Site of cellulitis: face Qualified Code(s): L03.211 - Cellulitis of face (2) Early stage of SNOMED Code(s): 017124465 Code(s): Z34.90 - ENCNTR FOR SUPRVSN OF NORMAL , UNSP, UNSP TRIMESTER Status: Acute Priority: High Current Visit: Yes - Problem List Review Problem List Initiated/Reviewed/Updated: Yes - Plan Plan:: Assessment/Plan: Acute: Facial Cellulitis - 2/2 Infected Acne - CT contraindicated due to - Received IV Vancomycin in ED x 1 -> continue -OB Recommending clindamycin PO at discharge, Avoid Bactrim - Cold compress TID - Tylenol/Percocet for pain control; avoid NSAIDs per OB - Zofran for nausea/vomiting - Consult OB for recommendations - Probiotic Early - 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
[2017-10-22] MEDS: Saccharomyces Boulardii (Probiotic) 250 MG Cap PO SCH (09:07)
[2017-10-22] MEDS: Prenatal Multivitamin with Calcium/Folic Acid/Iron Tab PO SCH (09:07)
--- NOTE | 2017-10-23 07:35 | PCM.PN ---
- General Info Date of Service: 10/23/17 Admission Dx/Problem (Free Text): Admission Diagnosis/Problem Admission Diagnosis/Problem Cellulitis - Patient Data Vitals - Most Recent: Last Vital Signs Temp 98.1 F 10/23/17 03:05 Pulse 96 10/23/17 03:05 Resp 16 10/23/17 03:05 BP 113/71 10/23/17 03:05 Pulse Ox 95 10/23/17 03:05 Weight - Most Recent: 154 lb 14.4 oz I&O - Last 24 Hours: Intake & Output 10/22/17 10/23/17 10/23/17 22:59 06:59 14:59 Intake Total 2057 365 Output Total 2500 900 Balance -443 -535 Lab Results Last 24 Hours: Laboratory Results - last 24 hr 10/22/17 10/23/17 10/23/17 Range/Units 18:23 06:23 06:23 WBC 7.56 (3.98-10.04) K/mm3 RBC 4.47 (3.98-5.22) M/mm3 Hgb 11.9 (11.2-15.7) gm/L Hct 36.2 (34.1-44.9) % MCV 81.0 (79.4-94.8) fl MCH 26.6 (25.6-32.2) pg MCHC 32.9 (32.2-35.5) g/dl RDW Std Deviation 37.6 (36.4-46.3) fL Plt Count 253 (182-369) K/mm3 MPV 11.5 (9.4-12.3) fl Neut % (Auto) 73.8 H (34.0-71.1) % Lymph % (Auto) 19.0 L (19.3-51.7) % [place] % (Auto) 6.1 (4.7-12.5) % Eos % (Auto) 0.7 (0.7-5.8) Baso % (Auto) 0.1 (0.1-1.2) % Neut # (Auto) 5.58 (1.56-6.13) K/mm3 Lymph # (Auto) 1.44 (1.18-3.74) K/mm3 [place] # (Auto) 0.46 H (0.24-0.36) K/mm3 Eos # (Auto) 0.05 (0.04-0.36) K/mm3 Baso # (Auto) 0.01 (0.01-0.08) K/mm3 Sodium 136 (136-145) mEq/L Potassium 3.6 (3.5-5.1) mEq/L Chloride 101 (98-107) mEq/L Carbon Dioxide 23 (21-32) mEq/L Anion Gap 15.6 H (5-15) BUN 6 L (7-18) mg/dL Creatinine 0.6 (0.55-1.02) mg/dL Est Cr Clr Drug Dosing 119.47 mL/min Estimated GFR (MDRD) > 60 (>60) mL/min BUN/Creatinine Ratio 10.0 L (14-18) Glucose 94 (74-106) mg/dL Calcium 9.3 (8.5-10.1) mg/dL Magnesium 2.1 (1.8-2.4) mg/dl C-Reactive Protein 6.4 H* (<1.0) mg/dL Vancomycin Trough 10.1 (10.0-20.0) Med Orders - Current: Current Medications Acetaminophen (Tylenol) 650 mg PO Q4H PRN PRN Reason: Other Albuterol/Ipratropium (Duoneb 3.0-0.5 Mg/3 Ml) 3 ml NEB Q4H PRN PRN Reason: Shortness Of Breath/wheezing Bisacodyl (Dulcolax) 5 mg PO DAILY PRN PRN Reason: Constipation Docusate Sodium (Colace) 100 mg PO BID PRN PRN Reason: Constipation Vancomycin HCl 1 gm/ Sodium (Chloride) 250 mls @ 250 mls/hr IV Q8H [facility] Last Admin: 10/23/17 03:02 Dose: 250 mls/hr Magnesium Sulfate (Pharmacy To Dose - Magnesium Replacement) 0 dose .XX ASDIRECTED PRN PRN Reason: RX TO WATCH MAG LEVELS Oxycodone/Acetaminophen (Percocet 325-5 Mg) 1 tab PO Q4H PRN PRN Reason: Pain Last Admin: 10/22/17 19:04 Dose: 1 tab Polyethylene Glycol (Miralax) 17 gm PO DAILY PRN PRN Reason: Constipation Last Admin: 10/22/17 13:18 Dose: 17 gm Potassium Chloride (Pharmacy To Dose - Potassium Replacement) 0 dose .XX ASDIRECTED PRN PRN Reason: RX TO WATCH K LEVELS Prenat Multivit/[place]/Iron/Folic Ac ( Plus Iron) 1 each PO DAILY [facility] Last Admin: 10/22/17 09:07 Dose: 1 each Saccharomyces Boulardii (Florastor) 500 mg PO DAILY [facility] Last Admin: 10/22/17 09:07 Dose: 500 mg Senna/Docusate Sodium (Senna Plus) 1 tab PO BID PRN PRN Reason: Constipation Sodium Chloride (Saline Flush) 10 ml FLUSH ASDIRECTED PRN PRN Reason: Keep Vein Open Last Admin: 10/21/17 10:24 Dose: 10 ml Vancomycin HCl (Pharmacy To Dose - Vancomycin) 0 dose .XX ASDIRECTED PRN PRN Reason: RX TO DOSE VANCOMYCIN Zinc Acetate/Diphenhydramine (Benadryl Itch Stopping Crm) 0 gm TOP Q4H PRN PRN Reason: Itching Discontinued Medications Diphenhydramine HCl (Benadryl) 50 mg IVPUSH ONETIME ONE Stop: 10/21/17 12:45 Last Admin: 10/21/17 12:50 Dose: 50 mg Hydromorphone HCl (Dilaudid) 0.5 mg IVPUSH ONETIME ONE Stop: 10/21/17 10:06 Last Admin: 10/21/17 10:24 Dose: 0.5 mg Hydromorphone HCl (Dilaudid) 0.5 mg IVPUSH ONETIME ONE Stop: 10/21/17 10:53 Last Admin: 10/21/17 10:59 Dose: 0.5 mg Hydromorphone HCl (Dilaudid) 0.5 mg IVPUSH ONETIME ONE Stop: 10/21/17 12:34 Last Admin: 10/21/17 12:40 Dose: 0.5 mg Lactated Ringer's (Ringers, Lactated) 1,000 mls @ 125 mls/hr IV ASDIRECTED [facility] Last Admin: 10/22/17 04:37 Dose: 125 mls/hr Vancomycin HCl 1.75 gm/ Sodium (Chloride) 500 mls @ 250 mls/hr IV ONETIME ONE Stop: 10/21/17 12:29 Last Admin: 10/21/17 10:49 Dose: 250 mls/hr Metoclopramide HCl (Reglan) 10 mg IVPUSH ONETIME ONE Stop: 10/21/17 11:46 Last Admin: 10/21/17 11:54 Dose: 10 mg Oxycodone/Acetaminophen (Percocet 325-5 Mg) 2 tab PO ONETIME ONE Stop: 10/21/17 17:19 Last Admin: 10/21/17 17:22 Dose: Not Given Oxycodone/Acetaminophen (Percocet 325-5 Mg) 2 tab PO ONETIME ONE Stop: 10/21/17 17:21 Last Admin: 10/21/17 17:38 Dose: 2 tab Potassium Chloride (Klor-Con M20) 40 meq PO Q4H [facility] Stop: 10/21/17 18:01 Last Admin: 10/21/17 17:37 Dose: 40 meq - Problem List & Annotations (1) Cellulitis SNOMED Code(s): 545027412 Code(s): L03.90 - CELLULITIS, UNSPECIFIED Status: Acute Priority: High Current Visit: Yes Qualifiers: Site of cellulitis: face Qualified Code(s): L03.211 - Cellulitis of face (2) Early stage of SNOMED Code(s): 686739631 Code(s): Z34.90 - ENCNTR FOR SUPRVSN OF NORMAL , UNSP, UNSP TRIMESTER Status: Acute Priority: High Current Visit: Yes - Plan Plan:: Assessment/Plan: Acute: Facial Cellulitis - 2/2 Infected Acne - CT contraindicated due to - Received IV Vancomycin in ED x 1 -> continue -OB Recommending clindamycin PO at discharge, Avoid Bactrim - Cold compress TID - Tylenol/Percocet for pain control; avoid NSAIDs per OB - Zofran for nausea/vomiting - Consult OB for recommendations - Probiotic Early - 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
[2017-10-23 08:15] VITALS: BP 100/55
[2017-10-23] MEDS: Saccharomyces Boulardii (Probiotic) 250 MG Cap PO SCH (08:48)
[2017-10-23] MEDS: Prenatal Multivitamin with Calcium/Folic Acid/Iron Tab PO SCH (08:48)
--- NOTE | 2017-10-23 09:00 | PCM.DCSUM1 ---
Discharge Summary - Hospital Course HPI Initial Comments: This is a 27 yo female in early stage of who comes in for evaluation and treatment of facial edema. She was initially seen in and was treated with one time dose of Rocephin and discharged with oral antibiotic. However she reports no improvement of her chief of complaint. Today she came back to ED for worsening edema and now affecting her ability to open and close her mouth. Her initial work up in ED shows a CBC remarkable for WBC of 11.86, Neutrophils of 80.5%, Lymphocytes of 12.3% and Eosinophils of 0.5% . Her chemistry is significant for AST of 64, ALT of 128, Alk Phos of 126 and Albumin of 3.3. She is being admitted for medical management of facial cellulitis. She is full code. Diagnosis: Stroke: No - Discharge Data Discharge Date: 10/23/17 (Admit date: 10/21/17) Discharge Disposition: Home, Self-Care 01 Condition: Good - Discharge Diagnosis/Problem(s) (1) Cellulitis SNOMED Code(s): 839193809 ICD Code: L03.90 - CELLULITIS, UNSPECIFIED Status: Acute Priority: High Current Visit: Yes Qualifiers: Site of cellulitis: face Qualified Code(s): L03.211 - Cellulitis of face (2) Early stage of SNOMED Code(s): 208969727 ICD Code: Z34.90 - ENCNTR FOR SUPRVSN OF NORMAL , UNSP, UNSP TRIMESTER Status: Acute Priority: High Current Visit: Yes - Patient Summary/Data Consults: Consultations 10/21/17 15:04 Consult to Physician [CONS] Routine Labs Pending at D/C: None Recommended Follow-up Testing/Procedures: Follow-up with PCP within 7-10 days of discharge Establish with a [facility] provider within 1-2 weeks of discharge. This can be a provider of your choosing. Hospital Course: Assessment/Plan: Acute: Facial Cellulitis - 2/2 Infected Acne - CT contraindicated due to - Received IV Vancomycin in ED x 1 -> stop prior to discharge. 300mg Oral clindamycin Q6 for 5 days -OB Recommending clindamycin PO at discharge, Avoid Bactrim - Cold compress TID - Tylenol/Percocet for pain control; avoid NSAIDs per OB - Zofran for nausea/vomiting - Consult OB for recommendations - Probiotic Early - Consult OB-Underwriting Technician - vitamin - Establish care in outpatient clinic with OB provider 1-2 weeks after discharge Chronic: None Plan: Admit to [facility]SP Resume Home Meds IVF for hydration - stop, good oral intake Tylenol for Pain/Fever and PHAM Routine AM Labs Other orders as above DVT/PE Prophylaxis: SCDs CM/SW for D/c planning Code Status: 1; PCP: None Overall Yenni did quite well. Her cellulitis continued to improve and it became easier to talk with less pain. She will be discharged home today on a 5 day course of clindamycin and OTC tylenol for pain. She will also be getting a probiotic. She should continue taking a vitamin and this was communicated to her. She was instructed to establish with an [facility] within 1-2 weeks of discharge. This can be a provider of her choice. She does not have a PCP. She should see a PCP within 7-10 days of discharge as well. We discussed smoking status. Yenni reports she has stopped smoking since finding out she is and she has done this before without difficulty. Discussed the [place] Quitline and how a PCP can be good resources. She turned down all other assistance. We discussed stopping smoking forever after her and she will consider it. - Patient Instructions Diet: Regular Diet as Tolerated Activity: As Tolerated Showering/Bathing: May Shower Notify Provider of: Fever, Increased Pain, Swelling and Redness, Drainage, Nausea and/or Vomiting - Discharge Plan Prescriptions/Med Rec: Clindamycin HCl 300 mg PO Q6HR #20 capsule Vit with Ca/FA/Iron [ Plus Iron] 1 each PO DAILY #30 tablet Saccharomyces Boulardii [Florastor] 500 mg PO DAILY #30 cap Home Medications: Home Meds Clindamycin HCl 300 mg PO Q6HR #20 capsule 10/23/17 [Rx] Vit with Ca/FA/Iron [ Plus Iron] 1 each PO DAILY #30 tablet [Rx] Saccharomyces Boulardii [Florastor] 500 mg PO DAILY #30 cap 10/23/17 [Rx] Patient Handouts: Steps to Quit Smoking, Cellulitis, Adult, [id number], First Trimester of , [id number] Forms: ED Department Discharge Referrals: PCP,None [Primary Care Provider] - - Discharge Summary/Plan Comment DC Time >30 min.: Yes (40 mins) - General Info Date of Service: 10/23/17 Admission Dx/Problem (Free Text: Cellulitis of the face Subjective Update: In to see Yenni today. She is lying in bed and her daughter is playing on her lap. She looks much better and is talking more. She is visibly in much less pain. Her last percocet was yesterday afternoon and she reports pain is gone. She will receive one more dose of vancomycin before leaving and then be switched to PO clindamycin. She agrees with discharge today. Functional Status: Reports: Pain Controlled, Tolerating Diet, Ambulating, Urinating. Denies: New Symptoms - Review of Systems General: Reports: No Symptoms. Denies: Fever, Weakness, Fatigue, Malaise HEENT: Reports: No Symptoms. Denies: Ear Pain, Eye Pain, Sinus Congestion, Sore Throat Pulmonary: Reports: No Symptoms. Denies: Shortness of Breath, Cough, Sputum, Wheezing Cardiovascular: Reports: No Symptoms. Denies: Chest Pain, Palpitations, Dyspnea on Exertion, Edema, Lightheadedness Gastrointestinal: Reports: No Symptoms. Denies: Abdominal Pain, Constipation, Diarrhea, Nausea, Vomiting Genitourinary: Reports: No Symptoms. Denies: Dysuria, Frequency, Burning, Pain Musculoskeletal: Reports: No Symptoms Skin: Reports: No Symptoms Neurological: Reports: No Symptoms. Denies: Confusion, Numbness, Tingling, Trouble Speaking, Difficulty Walking, Weakness, Gait Disturbance Psychiatric: Reports: No Symptoms - Patient Data Vitals - Most Recent: Last Vital Signs Temp 98.2 F 10/23/17 07:52 Pulse 84 10/23/17 07:52 Resp 19 10/23/17 07:52 BP 100/55 L 10/23/17 07:52 Pulse Ox 98 10/23/17 07:52 Weight - Most Recent: 154 lb 14.4 oz I&O - Last 24 hours: Intake & Output 10/22/17 10/23/17 10/23/17 22:59 06:59 14:59 Intake Total 2057 365 Output Total 2500 900 Balance -443 -535 Lab Results - Last 24 hrs: Laboratory Results - last 24 hr 10/22/17 10/23/17 10/23/17 Range/Units 18:23 06:23 06:23 WBC 7.56 (3.98-10.04) K/mm3 RBC 4.47 (3.98-5.22) M/mm3 Hgb 11.9 (11.2-15.7) gm/L Hct 36.2 (34.1-44.9) % MCV 81.0 (79.4-94.8) fl MCH 26.6 (25.6-32.2) pg MCHC 32.9 (32.2-35.5) g/dl RDW Std Deviation 37.6 (36.4-46.3) fL Plt Count 253 (182-369) K/mm3 MPV 11.5 (9.4-12.3) fl Neut % (Auto) 73.8 H (34.0-71.1) % Lymph % (Auto) 19.0 L (19.3-51.7) % [place] % (Auto) 6.1 (4.7-12.5) % Eos % (Auto) 0.7 (0.7-5.8) Baso % (Auto) 0.1 (0.1-1.2) % Neut # (Auto) 5.58 (1.56-6.13) K/mm3 Lymph # (Auto) 1.44 (1.18-3.74) K/mm3 [place] # (Auto) 0.46 H (0.24-0.36) K/mm3 Eos # (Auto) 0.05 (0.04-0.36) K/mm3 Baso # (Auto) 0.01 (0.01-0.08) K/mm3 Sodium 136 (136-145) mEq/L Potassium 3.6 (3.5-5.1) mEq/L Chloride 101 (98-107) mEq/L Carbon Dioxide 23 (21-32) mEq/L Anion Gap 15.6 H (5-15) BUN 6 L (7-18) mg/dL Creatinine 0.6 (0.55-1.02) mg/dL Est Cr Clr Drug Dosing 119.47 mL/min Estimated GFR (MDRD) > 60 (>60) mL/min BUN/Creatinine Ratio 10.0 L (14-18) Glucose 94 (74-106) mg/dL Calcium 9.3 (8.5-10.1) mg/dL Magnesium 2.1 (1.8-2.4) mg/dl C-Reactive Protein 6.4 H* (<1.0) mg/dL Vancomycin Trough 10.1 (10.0-20.0) Med Orders - Current: Current Medications Acetaminophen (Tylenol) 650 mg PO Q4H PRN PRN Reason: Other Albuterol/Ipratropium (Duoneb 3.0-0.5 Mg/3 Ml) 3 ml NEB Q4H PRN PRN Reason: Shortness Of Breath/wheezing Bisacodyl (Dulcolax) 5 mg PO DAILY PRN PRN Reason: Constipation Docusate Sodium (Colace) 100 mg PO BID PRN PRN Reason: Constipation Vancomycin HCl 1 gm/ Sodium (Chloride) 250 mls @ 250 mls/hr IV Q8H [facility] Last Admin: 10/23/17 03:02 Dose: 250 mls/hr Magnesium Sulfate (Pharmacy To Dose - Magnesium Replacement) 0 dose .XX ASDIRECTED PRN PRN Reason: RX TO WATCH MAG LEVELS Oxycodone/Acetaminophen (Percocet 325-5 Mg) 1 tab PO Q4H PRN PRN Reason: Pain Last Admin: 10/22/17 19:04 Dose: 1 tab Polyethylene Glycol (Miralax) 17 gm PO DAILY PRN PRN Reason: Constipation Last Admin: 10/22/17 13:18 Dose: 17 gm Potassium Chloride (Pharmacy To Dose - Potassium Replacement) 0 dose .XX ASDIRECTED PRN PRN Reason: RX TO WATCH K LEVELS Prenat Multivit/General Freight Agent/Iron/Folic Ac ( Plus Iron) 1 each PO DAILY [facility] Last Admin: 10/23/17 08:48 Dose: 1 each Saccharomyces Boulardii (Florastor) 500 mg PO DAILY [facility] Last Admin: 10/23/17 08:48 Dose: 500 mg Senna/Docusate Sodium (Senna Plus) 1 tab PO BID PRN PRN Reason: Constipation Sodium Chloride (Saline Flush) 10 ml FLUSH ASDIRECTED PRN PRN Reason: Keep Vein Open Last Admin: 10/21/17 10:24 Dose: 10 ml Vancomycin HCl (Pharmacy To Dose - Vancomycin) 0 dose .XX ASDIRECTED PRN PRN Reason: RX TO DOSE VANCOMYCIN Zinc Acetate/Diphenhydramine (Benadryl Itch Stopping Crm) 0 gm TOP Q4H PRN PRN Reason: Itching Discontinued Medications Diphenhydramine HCl (Benadryl) 50 mg IVPUSH ONETIME ONE Stop: 10/21/17 12:45 Last Admin: 10/21/17 12:50 Dose: 50 mg Hydromorphone HCl (Dilaudid) 0.5 mg IVPUSH ONETIME ONE Stop: 10/21/17 10:06 Last Admin: 10/21/17 10:24 Dose: 0.5 mg Hydromorphone HCl (Dilaudid) 0.5 mg IVPUSH ONETIME ONE Stop: 10/21/17 10:53 Last Admin: 10/21/17 10:59 Dose: 0.5 mg Hydromorphone HCl (Dilaudid) 0.5 mg IVPUSH ONETIME ONE Stop: 10/21/17 12:34 Last Admin: 10/21/17 12:40 Dose: 0.5 mg Lactated Ringer's (Ringers, Lactated) 1,000 mls @ 125 mls/hr IV ASDIRECTED [facility] Last Admin: 10/22/17 04:37 Dose: 125 mls/hr Vancomycin HCl 1.75 gm/ Sodium (Chloride) 500 mls @ 250 mls/hr IV ONETIME ONE Stop: 10/21/17 12:29 Last Admin: 10/21/17 10:49 Dose: 250 mls/hr Metoclopramide HCl (Reglan) 10 mg IVPUSH ONETIME ONE Stop: 10/21/17 11:46 Last Admin: 10/21/17 11:54 Dose: 10 mg Oxycodone/Acetaminophen (Percocet 325-5 Mg) 2 tab PO ONETIME ONE Stop: 10/21/17 17:19 Last Admin: 10/21/17 17:22 Dose: Not Given Oxycodone/Acetaminophen (Percocet 325-5 Mg) 2 tab PO ONETIME ONE Stop: 10/21/17 17:21 Last Admin: 10/21/17 17:38 Dose: 2 tab Potassium Chloride (Klor-Con M20) 40 meq PO Q4H [facility] Stop: 10/21/17 18:01 Last Admin: 10/21/17 17:37 Dose: 40 meq - Exam Quality Assessment: Reports: DVT Prophylaxis General: Reports: Alert, Oriented, Cooperative, No Acute Distress HEENT: Reports: Pupils Equal, Pupils Reactive, EOMI, Mucous Membr. Moist/[place] Neck: Reports: Supple, Trachea Midline, No JVD Lungs: Reports: Clear to Auscultation, Normal Respiratory Effort Cardiovascular: Reports: Regular Rate, Regular Rhythm GI/Abdominal Exam: Normal Bowel Sounds, Soft, Non-Tender, No Distention (Female) Exam: Deferred Rectal (Female) Exam: Deferred Back Exam: Reports: Normal Inspection, Full Range of Motion Extremities: Normal Inspection, Normal Range of Motion, Non-Tender, No Pedal Edema, Normal Capillary Refill Skin: Reports: Warm, Dry, Intact Wound/Incisions: Reports: Healing Well, No Drainage, Erythema Improving, Other ( reports wound drained last night. No drainage today) Neurological: Reports: No New Focal Deficit Psy/Mental Status: Reports: Alert, Normal Affect, Normal Mood
== END 2017-10-23 10:39 | disposition home or self-care (01) | DRG 781 ==
LOC: JD.ED 09:03 → JD.MS 12:37
PROVIDERS: ADMIT Internal Medicine; ATTEND Internal Medicine
DX: O98.811 Other maternal infectious and parasitic diseases complicating pregnancy, first trimester (principal); L03.211 Cellulitis of face; O99.341 Other mental disorders complicating pregnancy, first trimester; F41.9 Anxiety disorder, unspecified; O99.331 Smoking (tobacco) complicating pregnancy, first trimester; F17.200 Nicotine dependence, unspecified, uncomplicated; Z3A.01 Less than 8 weeks gestation of pregnancy; F32.9 Major depressive disorder, single episode, unspecified
CPT/HCPCS: 36415; 80048; 80053; 80202; 83735; 85025; 86140; 96365; 96366; 96375; 96376; 99284; 99284-25; A9270-GY; J1170; J1200; J2765; J3370; J7040; J7050; J7120

== ENCOUNTER 2018-06-03 13:53 | Inpatient (IN) | payer MEDICAID ==
[2018-06-03] MEDS ORDERED: Lidocaine 1% 50 ML MDV INJECT ONE (14:31)
[2018-06-03] MEDS ORDERED: Sodium Chloride 0.9% 10 ML Syringe FLUSH PRN (14:31)
[2018-06-03] MEDS ORDERED: Nalbuphine 20 MG/ML 1 ML Syringe IVPUSH PRN (14:31)
[2018-06-03] MEDS ORDERED: Ampicillin 2 GM in Sodium Chloride 0.9% 100 ML IV ONE (14:31)
[2018-06-03] MEDS ORDERED: Lactated Ringers 1,000 ML ONE (14:33)
[2018-06-03] MEDS ORDERED: Oxytocin/Lactated Ringers 10 UNIT/1,000 ML BAG IV SCH ×2 (14:45→21:15)
[2018-06-03] MEDS ORDERED: fentaNYL 100 MCG/2 ML SDV EPIDUR PRN (15:07)
[2018-06-03] MEDS ORDERED: ePHEDrine 50 MG/ML SDV IVPUSH PRN (15:07)
[2018-06-03] MEDS ORDERED: diphenhydrAMINE 50 MG/ML SDV IVPUSH PRN (15:07)
[2018-06-03] MEDS: Lactated Ringers 1,000 ML IV SCH ×4 (15:12→21:05)
[2018-06-03] MEDS ORDERED: Bupivacaine/fentaNYL/NS 100 ML Bag EPIDUR SCH (15:15)
--- NOTE | 2018-06-03 15:44 | PCM.PREANE ---
Preanesthetic Assessment - Procedure Proposed Procedure: billie - Anesthesia/Transfusion/Family Hx Anesthesia History: Prior Anesthesia Without Reaction Family History of Anesthesia Reaction: No Transfusion History: No Prior Transfusion(s) - Review of Systems General: No Symptoms Pulmonary: No Symptoms Cardiovascular: No Symptoms Gastrointestinal: No Symptoms Neurological: No Symptoms - Physical Assessment Pulse: 114 O2 Sat by Pulse Oximetry: 100 Respiratory Rate: 18 Blood Pressure: 110/64 Temperature: 98.3 F Height: 5 ft 4 in Weight: 83.915 kg ASA Class: 2 Mental Status: Alert & Oriented x3 Airway Class: Mallampati = 1 Dentition: Reports: Normal Dentition Thyro-Mental Finger Breadths: 3 Mouth Opening Finger Breadths: 3 ROM/Head Extension: Full Lungs: Clear to Auscultation, Normal Respiratory Effort Cardiovascular: Regular Rate, Regular Rhythm - Lab Values: Laboratory Last Values WBC 9.87 K/mm3 (3.98-10.04) 06/03/18 14:20 RBC 4.21 M/mm3 (3.98-5.22) 06/03/18 14:20 Hgb 10.0 gm/L (11.2-15.7) L 06/03/18 14:20 Hct 32.3 % (34.1-44.9) L 06/03/18 14:20 MCV 76.7 fl (79.4-94.8) L 06/03/18 14:20 MCH 23.8 pg (25.6-32.2) L 06/03/18 14:20 MCHC 31.0 g/dl (32.2-35.5) L 06/03/18 14:20 RDW Std Deviation 51.5 fL (36.4-46.3) H 06/03/18 14:20 Plt Count 166 K/mm3 (182-369) L 06/03/18 14:20 MPV 12.5 fl (9.4-12.3) H 06/03/18 14:20 Blood Type A POSITIVE 06/03/18 14:20 Gel Antibody Screen Negative 06/03/18 14:20 - Allergies Allergies/Adverse Reactions: Allergies Allergy/AdvReac Type Severity Reaction Status Date / Time No Known Allergies Allergy Verified 02/20/15 08:46 - Blood Blood Available: No - Acknowledgements Anesthesia Type Planned: Epidural Pt an Appropriate Candidate for the Planned Anesthesia: Yes Alternatives and Risks of Anesthesia Discussed w Pt/Guardian: Yes Pt/Guardian Understands and Agrees with Anesthesia Plan: Yes PreAnesthesia Questionnaire - Past Health History Medical/Surgical History: Denies Medical/Surgical History Cardiovascular History: Reports: None Respiratory History: Reports: None Gastrointestinal History: Reports: GERD 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 3 live , 3 miscarriages. Currently . - Infectious Disease History Infectious Disease History: Reports: Chicken Pox, Influenza - Past Surgical History Female Surgical History: Reports: D&C - SUBSTANCE USE Smoking Status *Q: Former Smoker Tobacco Use Within Last Twelve Months: No Second Hand Smoke Exposure: No Days Per Week of Alcohol Use: 0 Recreational Drug Use History: No - HOME MEDS Home Medications: Home Meds Clindamycin HCl 300 mg PO Q6HR #20 capsule 10/23/17 [Rx] Vit with Ca/FA/Iron [ Plus Iron] 1 each PO DAILY #30 tablet [Rx] Saccharomyces Boulardii [Florastor] 500 mg PO DAILY #30 cap 10/23/17 [Rx] - CURRENT (IN HOUSE) MEDS Current Meds: Current Medications Diphenhydramine HCl (Benadryl) 25 mg IVPUSH Q6H PRN PRN Reason: pruritis Ephedrine Sulfate (Ephedrine Sulfate) 5 mg IVPUSH ASDIRECTED PRN PRN Reason: Hypotension Fentanyl (Sublimaze) 100 mcg EPIDUR Q3H PRN PRN Reason: Pain Fentanyl/Bupivacaine HCl (Fentanyl/Bupivacaine/Ns 2 Mcg-0.125% 100 Ml) 100 ml EPIDUR ASDIRECTED [facility] Last Admin: 06/03/18 15:40 Dose: 100 ml Ampicillin Sodium 1 gm/ Sodium (Chloride) 100 mls @ 200 mls/hr IV Q4H [facility] Lactated Ringer's (Ringers, Lactated) 1,000 mls @ 100 mls/hr IV ASDIRECTED [facility] Last Admin: 06/03/18 15:13 Dose: 100 mls/hr Oxytocin/Lactated Ringer's (Pitocin In Lr 10 Units/1,000 Ml) 10 unit in 1,000 mls @ 500 mls/hr IV .CONTINUOUS [facility] Nalbuphine HCl (Nubain) 10 mg IVPUSH Q2H PRN PRN Reason: pain Sodium Chloride (Saline Flush) 10 ml FLUSH ASDIRECTED PRN PRN Reason: Keep Vein Open Discontinued Medications Lactated Ringer's (Ringers, Lactated) Confirm Administered Dose 1,000 mls @ as directed .ROUTE .STK-MED ONE Stop: 06/03/18 14:34 Ampicillin Sodium 2 gm/ Sodium (Chloride) 100 mls @ 200 mls/hr IV ONETIME ONE Stop: 06/03/18 15:00 Last Admin: 06/03/18 15:12 Dose: 200 mls/hr Lidocaine HCl (Xylocaine 1%) 20 ml INJECT ONETIME ONE Stop: 06/03/18 14:32
[2018-06-03] MEDS: Ampicillin 1 GM in Sodium Chloride 0.9% 100 ML IV SCH ×2 (18:35→23:06)
--- NOTE | 2018-06-03 19:26 | PCM.LDHP ---
L&D History of Present Illness - General Date of Service: 06/03/18 Admit Problem/Dx: Patient Status Order with Admit Dx/Problem 06/03/18 14:31 Patient Status [ADT] Routine Admission Diagnosis/Problem Admission Diagnosis/Problem Active labor Source of Information: Patient History Limitations: Reports: No Limitations - History of Present Illness Introduction:: Yenni Tadeo is a 28 year old 033 at 39 weeks 1 day by LMP consistent with 31 week ultrasound who presents for labor evaluation. She reports that at around 1 PM this afternoon she started have contractions are about every 15-20 minutes apart and lasting for 30-45 seconds. Or the next couple of hours a start to become more frequent and stronger in intensity. She reports that they eventually were about 5 minutes apart and were lasting up to 60 seconds at a time. She reports that when she was having the contractions they would cause her to stop what she was doing and have to breathe through them. She rates the pain with the contractions at 8-9/10 when she was having a mother most intense. She reports that she has been having increased amount of mucus discharge over the last couple of days but denies any leaking of fluid or vaginal bleeding. She reports that she has been having good movement. Timing/Duration: Reports: gradual onset, getting worse (more frequent to every 5 minutes apart and lasting longer) Location, : Reports: Abdomen, Pelvic Quality: Reports: Throbbing Severity: Severe Pain Score: 8 Improves with: Reports: None Worsens with: Reports: None Associated Symptoms: Reports: vaginal discharge (mucus), mild amount. Denies: vaginal bleeding, vaginal fluid Present Illness Comments:: Yenni Tadeo is a 28-year-old 033 at 39 weeks 1 day by LMP consistent with 31 week ultrasound. She has had minimal care during this with only 5 visits starting at 81 weeks with myself. Review of her labs shows A+ blood type with negative antibody screen. Her hematocrit was 31.0 with hemoglobin of 9.8 and platelets of 221 on 04/27/2018. She is rubella immune. Her RPR, hepatitis B surface antigen and HIV were all negative. Her urine culture showed group B strep bacteria and a low: The count and was considered positive for GBS bacteriuria. Her gonorrhea and Chlamydia test were both negative. Her anatomy ultrasound was done on 04/29/2018 and was overall normal but was limited due to advanced gestational age. There is a posterior placenta. Estimated weight was 2690 g which was the 54th percentile. Her 1 hour glucose test was 119. [employer] history 033 G1: 03/2007 spontaneous approximate 6 weeks gestational age G2: 03/31/2008 of a female infant weighing 8 lbs. 8 oz. at 41 weeks gestational age G3: 08/26/2013 of a female weighing 8 lbs. 0 oz. at 40 weeks' gestational age G4: 05/2015 spontaneous at approximately 4 weeks gestational age G5: 04/2016 spontaneous at approximately 5 weeks gestational age G6: 04/21/2017 of a female weighing 9 lbs. 6 oz. at 39 weeks gestational age G7: Current Her has been complicated by: - Anemia in and on iron supplementation - Late care with care starting at approximately 31 weeks gestational age - GBS bacteria in this , will need antibiotics in labor - History of anxiety and depression not on medications currently - History of depression and declines medications during the - History of cellulitis on her chin early in that was treated with antibiotics - Related Data Allergies/Adverse Reactions: Allergies Allergy/AdvReac Type Severity Reaction Status Date / Time No Known Allergies Allergy Verified 02/20/15 08:46 Home Medications: Home Meds Clindamycin HCl 300 mg PO Q6HR #20 capsule 10/23/17 [Rx] Vit with Ca/FA/Iron [ Plus Iron] 1 each PO DAILY #30 tablet [Rx] Saccharomyces Boulardii [Florastor] 500 mg PO DAILY #30 cap 10/23/17 [Rx] Past Medical History Cardiovascular History: Reports: None Respiratory History: Reports: None Gastrointestinal History: Reports: GERD [employer] History: Reports: , Spontaneous : 7 Para: 3 ([id number]) Other OB/BYN History: Patient has had a history of D&C in 2007. 3 live , 3 miscarriages. Currently . Psychiatric History: Reports: Anxiety, Depression Hematologic History: Reports: Anemia Dermatologic History: Reports: Cellulitis (In early ) - Infectious Disease History Infectious Disease History: Reports: Chicken Pox, Influenza - Past Surgical History Female Surgical History: Reports: D&C Social & Family History - Family History Family Medical History: Noncontributory Cardiac: Reports: Heart Murmur Musculoskeletal: Reports: RA Endocrine/Metabolic: Reports: Diabetes, Type I Hematologic: Reports: Anemia - Tobacco Use Smoking Status *Q: Former Smoker Second Hand Smoke Exposure: No - Tobacco Core Measures Tobacco Use/Smoking Within Last 30 Days: No Smokeless Tobacco Use in Last 30 Days: No - Caffeine Use Caffeine Use: Reports: Coffee - Alcohol Use Days Per Week of Alcohol Use: 0 - Recreational Drug Use Recreational Drug Use: No - Living Situation & Occupation Living situation: Reports: Single, with Significant Other H&P Review of Systems - Review of Systems: Review Of Systems: See Below General: Denies: Fever, Chills, Malaise, Weakness, Fatigue HEENT: Denies: Headaches, Rhinitis, Post Nasal Drip, Sinus Congestion, Sore Throat, Visual Changes Pulmonary: Denies: Shortness of Breath, Wheezing, Cough Cardiovascular: Denies: Chest Pain, Palpitations, Dyspnea on Exertion Gastrointestinal: Denies: Abdominal Pain, Constipation, Diarrhea, Nausea, Vomiting Genitourinary: Denies: Dysuria, Frequency, Burning, Pain, Urgency Musculoskeletal: Denies: Back Pain Skin: Denies: Rash, Lesions Psychiatric: Reports: Depression (history of, not on medications currently), Anxiety (history of, not on medications currently) Hematologic/Lymphatic: Reports: Anemia L&D Exam - Exam Exam: See Below - Vital Signs Vital Signs: Last Vital Signs Temp 36.8 C 06/03/18 15:44 Pulse 114 H 06/03/18 15:44 Resp 18 06/03/18 15:44 BP 110/64 06/03/18 15:44 Pulse Ox 100 06/03/18 15:44 Weight: 83.915 kg - OB Specific Contraction Duration (sec): 60-75 Contraction Frequency (min): 3-5 Contraction Intensity: Moderate to Strong Movement: Active Heart Tones: Present Heart Tones per Min: 135 (+15 x 15 accelerations, no decelerations) Presentation: Vertex Estimated Weight: 7.5-8 lbs by Leopolds - Santos Score Santos Score Cervix Position: Anterior Santos Score Consistency: Soft Santos Score Effacement: >80% (90%) Santos Score Dilation: > 5 cm (7 cm) Santos Score 's Station: -2 Santos Score Total: 11 - Exam General: Alert, Oriented HEENT: Conjunctiva Clear, EOMI Neck: Supple, Trachea Midline Lungs: Clear to Auscultation, Normal Respiratory Effort Cardiovascular: Regular Rate, Regular Rhythm GI/Abdominal Exam: Soft, Non-Tender, No Distention, Other (gravid). No: Guarding, Rigid, Rebound Genitourinary: Normal external exam Back Exam: Normal Inspection Extremities: Normal Inspection, No Pedal Edema Skin: Warm, Dry, Intact Psychiatric: Alert, Normal Affect, Normal Mood - Patient Data Lab Results Last 24 hrs: Laboratory Results - last 24 hr 06/03/18 06/03/18 Range/Units 14:20 14:20 WBC 9.87 (3.98-10.04) K/mm3 RBC 4.21 (3.98-5.22) M/mm3 Hgb 10.0 L (11.2-15.7) gm/L Hct 32.3 L (34.1-44.9) % MCV 76.7 L (79.4-94.8) fl MCH 23.8 L (25.6-32.2) pg MCHC 31.0 L (32.2-35.5) g/dl RDW Std Deviation 51.5 H (36.4-46.3) fL Plt Count 166 L (182-369) K/mm3 MPV 12.5 H (9.4-12.3) fl Blood Type A POSITIVE Gel Antibody Screen Negative Result Diagrams: 06/03/18 14:20 - Problem List (1) Late care SNOMED Code(s): 854247445 ICD Code: O09.30 - SUPRVSN OF PREG W INSUFFICIENT ANTENAT CARE, UNSP TRIMESTER Status: Acute Current Visit: Yes (2) GBS bacteriuria SNOMED Code(s): 21555569 ICD Code: R82.71 - BACTERIURIA Status: Acute Current Visit: Yes (3) Anemia complicating SNOMED Code(s): 17703101 ICD Code: O99.019 - ANEMIA COMPLICATING , UNSPECIFIED TRIMESTER Status: Acute Current Visit: Yes (4) History of anxiety SNOMED Code(s): 458194002 ICD Code: Z86.59 - PERSONAL HISTORY OF OTHER MENTAL AND BEHAVIORAL DISORDERS Status: Acute Current Visit: Yes (5) History of depression SNOMED Code(s): 610974577 ICD Code: Z86.59 - PERSONAL HISTORY OF OTHER MENTAL AND BEHAVIORAL DISORDERS Status: Acute Current Visit: Yes (6) 39 weeks gestation of SNOMED Code(s): 83341315 ICD Code: Z3A.39 - 39 WEEKS GESTATION OF Status: Acute Current Visit: No (7) History of depression SNOMED Code(s): 195694320 ICD Code: Z87.59 - PERSONAL HISTORY OF COMP OF PREG, CHLDBRTH AND THE PUERP; Z86.59 - PERSONAL HISTORY OF OTHER MENTAL AND BEHAVIORAL DISORDERS Status: Acute Current Visit: Yes (8) History of depression, currently SNOMED Code(s): 927506961 ICD Code: O99.89 - OTH DISEASES AND CONDITIONS COMPL PREG/CHLDBRTH; Z86.59 - PERSONAL HISTORY OF OTHER MENTAL AND BEHAVIORAL DISORDERS Status: Acute Current Visit: Yes (9) History of cellulitis SNOMED Code(s): 348862067 ICD Code: Z87.2 - PERSONAL HISTORY OF DISEASES OF THE SKIN, SUBCU Status: Acute Current Visit: Yes Problem List Initiated/Reviewed/Updated: Yes Orders Last 24hrs: Active Orders 24 hr Category Date Time Status Patient Status [ADT] Routine ADT 06/03/18 14:31 Active Activity as Tolerated [RC] PFP Care 06/03/18 14:31 Active Communication Order [RC] ASDIRECTED Care 06/03/18 14:31 Active Heart Tones [RC] ASDIRECTED Care 06/03/18 14:32 Active Non Stress Test [RC] PER UNIT ROUTINE Care 06/03/18 14:31 Active Notify Provider [RC] ASDIRECTED Care 06/03/18 15:07 Active Notify Provider [RC] PFP Care 06/03/18 14:31 Active Notify Provider [RC] PRN Care 06/03/18 14:31 Active Peripheral IV Care [RC] . DIRECTED Care 06/03/18 14:32 Active Pump Management, Intrathecal [RC] ASDIRECTED Care 06/03/18 14:34 Active Urinary Catheter Assessment [RC] ASDIRECTED Care 06/03/18 14:31 Active Vital Signs [RC] PER UNIT ROUTINE Care 06/03/18 14:31 Active Regular Diet [DIET] Diet 06/03/18 Dinner Active RAPID PLASMA REAGIN,RPR [CHEM] Routine Lab 06/03/18 14:20 Received Ampicillin 1 gm Med 06/03/18 19:00 Active Sodium Chloride 0.9% [Normal Saline] 100 ml IV Q4H Bupivacaine/fentaNYL/NS [fentaNYL/Bupivacaine/NS 2 MCG- Med 06/03/18 15:15 Active 0.125% 100 ML] 100 ml EPIDUR ASDIRECTED Lactated Ringers [Ringers, Lactated] 1,000 ml Med 06/03/18 14:45 Active IV ASDIRECTED Nalbuphine [Nubain] Med 06/03/18 14:31 Active 10 mg IVPUSH Q2H PRN Oxytocin/Lactated Ringers [Pitocin in LR 10 Units/1,000 Med 06/03/18 14:45 Active ML] 10 unit in 1,000 ml IV .CONTINUOUS Sodium Chloride 0.9% [Saline Flush] Med 06/03/18 14:31 Active 10 ml FLUSH ASDIRECTED PRN diphenhydrAMINE [Benadryl] Med 06/03/18 15:07 Active 25 mg IVPUSH Q6H PRN ePHEDrine [ePHEDrine sulfate] Med 06/03/18 15:07 Active 5 mg IVPUSH ASDIRECTED PRN fentaNYL [Sublimaze] Med 06/03/18 15:07 Active 100 mcg EPIDUR Q3H PRN Electronic Heart Tones Ext w TOCO [WOMSER] Oth 06/03/18 14:31 Ordered Routine Electronic Heart Tones Internal [WOMSER] Per Unit Oth 06/03/18 14:31 Ordered Routine Peripheral IV Insertion Adult [OM.PC] Routine Oth 06/03/18 14:31 Ordered Resuscitation Status Routine Resus Stat 06/03/18 14:31 Ordered Medication Orders Diphenhydramine HCl (Benadryl) 25 mg IVPUSH Q6H PRN PRN Reason: pruritis Ephedrine Sulfate (Ephedrine Sulfate) 5 mg IVPUSH ASDIRECTED PRN PRN Reason: Hypotension Fentanyl (Sublimaze) 100 mcg EPIDUR Q3H PRN PRN Reason: Pain Fentanyl/Bupivacaine HCl (Fentanyl/Bupivacaine/Ns 2 Mcg-0.125% 100 Ml) 100 ml EPIDUR ASDIRECTED MONTRELL Last Admin: 06/03/18 15:40 Dose: 100 ml Ampicillin Sodium 1 gm/ Sodium (Chloride) 100 mls @ 200 mls/hr IV Q4H MONTRELL Lactated Ringer's (Ringers, Lactated) 1,000 mls @ 100 mls/hr IV ASDIRECTED MONTRELL Last Admin: 06/03/18 15:13 Dose: 100 mls/hr Infusion: 06/03/18 15:13 Dose: 100 mls/hr Admin: 06/03/18 15:12 Dose: 100 mls/hr Oxytocin/Lactated Ringer's (Pitocin In Lr 10 Units/1,000 Ml) 10 unit in 1,000 mls @ 500 mls/hr IV .CONTINUOUS MONTRELL Nalbuphine HCl (Nubain) 10 mg IVPUSH Q2H PRN PRN Reason: pain Sodium Chloride (Saline Flush) 10 ml FLUSH ASDIRECTED PRN PRN Reason: Keep Vein Open Assessment/Plan Comment:: After patient had finished second dose of ampicillin at approximately 7 PM artificial rupture membranes was performed with cervical exam. Cervix was dilated to 7/90/-2/soft/anterior with bulging bag of water. Mother and baby tolerated procedure well. Refer to observation for spontaneous labor with cervical change Continuous monitoring IV with Lactated Ringer's at 125 ml/hr May have small amounts of regular diet Activity as tolerated Patient with epidural in place Plans to breast-feed after delivery Patient started on ampicillin 2 g at time of admission and to have 1 g every 4 hours after for GBS prophylaxis Anticipate vaginal delivery unless otherwise indicated
[2018-06-03] MEDS ORDERED: Bupivacaine 0.25% 10 ML SDV ONE (22:00)
[2018-06-03] MEDS ORDERED: Lidocaine 1.5% with EPINEPHrine 1:200,000 5 ML Amp ONE (22:00)
--- NOTE | 2018-06-04 00:48 | PCM.DEL ---
L & D Note - General Info Date of Service: 06/04/18 Mother's Due Date: 06/09/18 - Delivery Note Labor: Spontaneous, Augmented by ARM, Augmented by Oxytocin Delivery Outcome: Livebirth Delivery Method: Spontaneous Vaginal Delivery-Single Presentation: Right Occiput Posterior (ROP) Nuchal Cord: None Prep: Povidone-Iodine (Betadine Anesthesia Type: Epidural Amniotic Fluid Description: Clear Episiotomy Type: None Laceration: 1st Degree, Perineal (not repaired, hemostatic) Placenta: Intact, Spontaneous Cord: 3 Vessels Estimated Blood Loss: 350 Resuscitation Needed: Yes : Bulb Syringe, Stimulated, Warmed, Moran Used Provider: Miguel Butterfield Score 1 min: 8 Score 5 min: 9 Second Stage Interventions: Reports: Pushing Effectively, Pushing, Pulls Own Legs Back, Pushing, Stirrups/Leg Supports Delivery Comments (Free Text/Narrative):: Stage I: Yenni Tadeo was admitted for spontaneous labor. On admission her cervix was dilated to 5 cm. She was GBS positive and was started on ampicillin for prophylaxis. She received a total of 3 doses prior to delivery. She was given an epidural for anesthesia. After her second dose of ampicillin she had artificial rupture membranes with clear fluid. She had spacing out of her contractions after several hours after artificial rupture of membranes and was started on Pitocin for augmentation of her labor. She progressed to complete and pushing. Stage II: On 06/04/2018 she had a normal vaginal delivery of a live female infant at 0017. Apgars of 8 & 9. Weight of 3620 g (8 lbs 0 oz). Length of 20 inches. There was no nuchal cord. was delivered in ROP position. The cord was doubly clamped and cut by father of the . was placed on mother's abdomen. Stage III: She had a spontaneous delivery of an intact placenta in Rodriguez presentation. Three vessel cord. She was given pitocin and fundal massage. She had a first-degree perineal laceration of the perineal skin that was hemostatic and not repaired. Mom and baby were stable to recovery. EBL of 350 mL. Miguel Butterfield MD 12:45 AM 06/04/2018 - General Info Date of Service: 06/04/18 - Patient Data Vitals - Most Recent: Last Vital Signs Temp 36.8 C 06/03/18 15:44 Pulse 114 H 06/03/18 15:44 Resp 18 06/03/18 15:44 BP 110/64 06/03/18 15:44 Pulse Ox 100 06/03/18 15:44 Weight - Most Recent: 83.915 kg Lab Results Last 24 Hours: Laboratory Results - last 24 hr 06/03/18 06/03/18 06/03/18 Range/Units 14:20 14:20 18:07 WBC 9.87 (3.98-10.04) K/mm3 RBC 4.21 (3.98-5.22) M/mm3 Hgb 10.0 L (11.2-15.7) gm/L Hct 32.3 L (34.1-44.9) % MCV 76.7 L (79.4-94.8) fl MCH 23.8 L (25.6-32.2) pg MCHC 31.0 L (32.2-35.5) g/dl RDW Std Deviation 51.5 H (36.4-46.3) fL Plt Count 166 L (182-369) K/mm3 MPV 12.5 H (9.4-12.3) fl Urine Opiates Screen Negative (JPETDW=280) Ur Buprenorphine Scrn Negative (CUTOFF=10) Ur Oxycodone Screen Negative (PDK4KT=729) Urine Methadone Screen Negative (ANRUXH=308) Ur Propoxyphene Screen Negative (SRUPLT=346) Ur Barbiturates Screen Negative (TLQKHB=286) Ur Tricyclics Screen Negative (ERTVNW=673) Ur Phencyclidine Scrn Negative (CUTOFF=25) Ur Amphetamine Screen Presumptive positive H (ALBUUP=392) U Methamphetamines Scrn Presumptive positive H (WELJIZ=843) U Benzodiazepines Scrn Negative (UUQCHS=494) U Cocaine Metab Screen Negative (NAKNFE=829) U Marijuana (THC) Screen Negative (CUTOFF=50) Blood Type A POSITIVE Gel Antibody Screen Negative Med Orders - Current: Current Medications Diphenhydramine HCl (Benadryl) 25 mg IVPUSH Q6H PRN PRN Reason: pruritis Ephedrine Sulfate (Ephedrine Sulfate) 5 mg IVPUSH ASDIRECTED PRN PRN Reason: Hypotension Fentanyl (Sublimaze) 100 mcg EPIDUR Q3H PRN PRN Reason: Pain Fentanyl/Bupivacaine HCl (Fentanyl/Bupivacaine/Ns 2 Mcg-0.125% 100 Ml) 100 ml EPIDUR ASDIRECTED MONTRELL Last Admin: 06/03/18 15:40 Dose: 100 ml Ampicillin Sodium 1 gm/ Sodium (Chloride) 100 mls @ 200 mls/hr IV Q4H MONTRELL Last Admin: 06/03/18 23:06 Dose: 200 mls/hr Lactated Ringer's (Ringers, Lactated) 1,000 mls @ 100 mls/hr IV ASDIRECTED MONTRELL Last Admin: 06/03/18 21:05 Dose: 100 mls/hr Oxytocin/Lactated Ringer's (Pitocin In Lr 10 Units/1,000 Ml) 10 unit in 1,000 mls @ 500 mls/hr IV .CONTINUOUS MONTRELL Oxytocin/Lactated Ringer's (Pitocin In Lr 10 Units/1,000 Ml) 10 unit in 1,000 mls @ 12 mls/hr IV TITRATE MONTRELL; Protocol Nalbuphine HCl (Nubain) 10 mg IVPUSH Q2H PRN PRN Reason: pain Sodium Chloride (Saline Flush) 10 ml FLUSH ASDIRECTED PRN PRN Reason: Keep Vein Open Discontinued Medications Lactated Ringer's (Ringers, Lactated) Confirm Administered Dose 1,000 mls @ as directed .ROUTE .STK-MED ONE Stop: 06/03/18 14:34 Last Admin: 06/03/18 15:45 Dose: Not Given Ampicillin Sodium 2 gm/ Sodium (Chloride) 100 mls @ 200 mls/hr IV ONETIME ONE Stop: 06/03/18 15:00 Last Admin: 06/03/18 15:12 Dose: 200 mls/hr Lidocaine HCl (Xylocaine 1%) 20 ml INJECT ONETIME ONE Stop: 06/03/18 14:32 - Problem List & Annotations (1) Late care SNOMED Code(s): 258023006 Code(s): O09.30 - SUPRVSN OF PREG W INSUFFICIENT ANTENAT CARE, UNSP TRIMESTER Status: Acute Current Visit: Yes (2) GBS bacteriuria SNOMED Code(s): 28807066 Code(s): R82.71 - BACTERIURIA Status: Acute Current Visit: Yes (3) Anemia complicating SNOMED Code(s): 25704057 Code(s): O99.019 - ANEMIA COMPLICATING , UNSPECIFIED TRIMESTER Status: Acute Current Visit: Yes (4) History of anxiety SNOMED Code(s): 845461551 Code(s): Z86.59 - PERSONAL HISTORY OF OTHER MENTAL AND BEHAVIORAL DISORDERS Status: Acute Current Visit: Yes (5) History of depression SNOMED Code(s): 475184575 Code(s): Z86.59 - PERSONAL HISTORY OF OTHER MENTAL AND BEHAVIORAL DISORDERS Status: Acute Current Visit: Yes (6) 39 weeks gestation of SNOMED Code(s): 82537124 Code(s): Z3A.39 - 39 WEEKS GESTATION OF Status: Acute Current Visit: No (7) History of depression SNOMED Code(s): 246311846 Code(s): Z87.59 - PERSONAL HISTORY OF COMP OF PREG, CHLDBRTH AND THE PUERP; Z86.59 - PERSONAL HISTORY OF OTHER MENTAL AND BEHAVIORAL DISORDERS Status: Acute Current Visit: Yes (8) History of depression, currently SNOMED Code(s): 914743879 Code(s): O99.89 - OTH DISEASES AND CONDITIONS COMPL PREG/CHLDBRTH; Z86.59 - PERSONAL HISTORY OF OTHER MENTAL AND BEHAVIORAL DISORDERS Status: Acute Current Visit: Yes (9) History of cellulitis SNOMED Code(s): 623104449 Code(s): Z87.2 - PERSONAL HISTORY OF DISEASES OF THE SKIN, SUBCU Status: Acute Current Visit: Yes (10) Vaginal delivery SNOMED Code(s): 580309939 Code(s): O80 - ENCOUNTER FOR FULL-TERM UNCOMPLICATED DELIVERY Status: Acute Current Visit: Yes (11) First degree perineal laceration during delivery SNOMED Code(s): 539062981 Code(s): O70.0 - FIRST DEGREE PERINEAL LACERATION DURING DELIVERY Status: Acute Current Visit: Yes - Problem List Review Problem List Initiated/Reviewed/Updated: Yes - My Orders Last 24 Hours: My Active Orders 06/03/18 14:20 RAPID PLASMA REAGIN,RPR [CHEM] Routine 06/03/18 14:31 Patient Status [ADT] Routine Activity as Tolerated [RC] PFP Communication Order [RC] ASDIRECTED Non Stress Test [RC] PER UNIT ROUTINE Notify Provider [RC] PFP Notify Provider [RC] PRN Urinary Catheter Assessment [RC] ASDIRECTED Vital Signs [RC] PER UNIT ROUTINE Nalbuphine [Nubain] 10 mg IVPUSH Q2H PRN Sodium Chloride 0.9% [Saline Flush] 10 ml FLUSH ASDIRECTED PRN Electronic Heart Tones Ext w TOCO [WOMSER] Routine Electronic Heart Tones Internal [WOMSER] Per Unit Routine Peripheral IV Insertion Adult [OM.PC] Routine Resuscitation Status Routine 06/03/18 14:32 Heart Tones [RC] ASDIRECTED Peripheral IV Care [RC] . DIRECTED 06/03/18 14:34 Pump Management, Intrathecal [RC] ASDIRECTED 06/03/18 14:45 Lactated Ringers [Ringers, Lactated] 1,000 ml IV ASDIRECTED Oxytocin/Lactated Ringers [Pitocin in LR 10 Units/1,000 ML] 10 unit in 1,000 ml IV .CONTINUOUS 06/03/18 18:07 AMPHETAMINES, CONF, UR Stat 06/03/18 19:00 Ampicillin 1 gm Sodium Chloride 0.9% [Normal Saline] 100 ml IV Q4H 06/03/18 21:15 Oxytocin/Lactated Ringers [Pitocin in LR 10 Units/1,000 ML] 10 unit in 1,000 ml IV TITRATE 06/03/18 Dinner Regular Diet [DIET] 06/04/18 00:36 Patient Status Manage Transfer [TRANSFER] Routine - Plan Plan:: Admit to inpatient following normal spontaneous vaginal delivery Continue Pitocin per unit protocol following delivery of placenta and lactated Ringer's until tolerating regular diet Regular diet Vitals per unit routine Ibuprofen and Tylenol for pain control Assist with breast-feeding as needed Continue to monitor lochia Social work consult secondary to positive urine drug screen for amphetamines and methamphetamines Anticipate discharge home on day #1 or #2 depending on 's status Miguel Butterfield MD 12:45 AM 06/04/2018
[2018-06-04] MEDS ORDERED: Docusate Sodium 100 MG Cap PO PRN (01:52)
[2018-06-04] MEDS ORDERED: Oxytocin/Lactated Ringers 10 UNIT/1,000 ML BAG IV SCH (01:52)
[2018-06-04] MEDS ORDERED: Lanolin 100% Cream 7 GM Tube TOP PRN (01:52)
[2018-06-04] MEDS ORDERED: Hydrocortisone Acetate 25 MG Supp RECTAL PRN (01:52)
[2018-06-04] MEDS ORDERED: Witch Hazel Medicated Pads 100/Jar TOP PRN (01:52)
[2018-06-04] MEDS ORDERED: Benzocaine/Menthol 20%-0.5% Spray 56 GM Canister TOP PRN (01:52)
[2018-06-04] MEDS ORDERED: Magnesium Hydroxide 400 MG/5 ML Susp 30 ML Cup PO PRN (01:52)
[2018-06-04] MEDS: Ibuprofen 600 MG Tab PO PRN ×4 (02:17→14:45)
[2018-06-04] MEDS: Acetaminophen 325 MG Tab PO PRN ×3 (07:08→19:09)
[2018-06-04] MEDS: Ferrous Sulfate 325 MG Tab PO SCH (07:08)
[2018-06-04] MEDS: Prenatal Multivitamin with Calcium/Folic Acid/Iron Tab PO SCH (08:27)
[2018-06-05] MEDS: Ibuprofen 600 MG Tab PO PRN (09:08)
[2018-06-05] MEDS: Prenatal Multivitamin with Calcium/Folic Acid/Iron Tab PO SCH (09:08)
[2018-06-05 10:36] VITALS: BP 112/75
[2018-06-05] MEDS: Ferrous Sulfate 325 MG Tab PO SCH (11:59)
--- NOTE | 2018-06-05 12:20 | PCM.DCSUM1 ---
Discharge Summary - Hospital Course Free Text/Narrative:: [facility] LIVE L/D Delivery Note Patient Name: YENNI LOONEY Date of : 86 Patient Status: Inpatient Attending Provider: Miguel Butterfield Date: 06/04/18 00:42 Initialization Date: 06/04/18 00:42 L & D Note - General Info Date of Service: 06/04/18 Mother's Due Date: 06/09/18 - Delivery Note Labor: Spontaneous, Augmented by ARM, Augmented by Oxytocin Delivery Outcome: Livebirth Delivery Method: Spontaneous Vaginal Delivery-Single Presentation: Right Occiput Posterior (ROP) Nuchal Cord: None Prep: Povidone-Iodine (Betadine Anesthesia Type: Epidural Amniotic Fluid Description: Clear Episiotomy Type: None Laceration: 1st Degree, Perineal (not repaired, hemostatic) Placenta: Intact, Spontaneous Cord: 3 Vessels Estimated Blood Loss: 350 Resuscitation Needed: Yes : Bulb Syringe, Stimulated, Warmed, [place] Used Provider: Miguel Butterfield Score 1 min: 8 Score 5 min: 9 Second Stage Interventions: Reports: Pushing Effectively, Pushing, Pulls Own Legs Back, Pushing, Stirrups/Leg Supports Delivery Comments (Free Text/Narrative):: Stage I: Yenni Looney was admitted for spontaneous labor. On admission her cervix was dilated to 5 cm. She was GBS positive and was started on ampicillin for prophylaxis. She received a total of 3 doses prior to delivery. She was given an epidural for anesthesia. After her second dose of ampicillin she had artificial rupture membranes with clear fluid. She had spacing out of her contractions after several hours after artificial rupture of membranes and was started on Pitocin for augmentation of her labor. She progressed to complete and pushing. Stage II: On 06/04/2018 she had a normal vaginal delivery of a live female infant at 0017. Apgars of 8 & 9. Weight of 3620 g (8 lbs 0 oz). Length of 20 inches. There was no nuchal cord. Infant was delivered in ROP position. The cord was doubly clamped and cut by father of the . Infant was placed on mother's abdomen. Stage III: She had a spontaneous delivery of an intact placenta in Rodriguez presentation. Three vessel cord. She was given pitocin and fundal massage. She had a first-degree perineal laceration of the perineal skin that was hemostatic and not repaired. Mom and baby were stable to recovery. EBL of 350 mL. Miguel Butterfield MD 12:45 AM 06/04/2018 - General Info Date of Service: 06/04/18 - Patient Data Vitals - Most Recent: Last Vital Signs Temp 36.8 C 06/03/18 15:44 Pulse 114 H 06/03/18 15:44 Resp 18 06/03/18 15:44 BP 110/64 06/03/18 15:44 Pulse Ox 100 06/03/18 15:44 Weight - Most Recent: 83.915 kg Lab Results Last 24 Hours: Laboratory Results - last 24 hr 06/03/18 06/03/18 06/03/18 Range/Units 14:20 14:20 18:07 WBC 9.87 (3.98-10.04) K/mm3 RBC 4.21 (3.98-5.22) M/mm3 Hgb 10.0 L (11.2-15.7) gm/L Hct 32.3 L (34.1-44.9) % MCV 76.7 L (79.4-94.8) fl MCH 23.8 L (25.6-32.2) pg MCHC 31.0 L (32.2-35.5) g/dl RDW Std Deviation 51.5 H (36.4-46.3) fL Plt Count 166 L (182-369) K/mm3 MPV 12.5 H (9.4-12.3) fl Urine Opiates Screen Negative (RJOBYW=792) Ur Buprenorphine Scrn Negative (CUTOFF=10) Ur Oxycodone Screen Negative (BDV2FL=558) Urine Methadone Screen Negative (PJZSXG=588) Ur Propoxyphene Screen Negative (BVVJBC=233) Ur Barbiturates Screen Negative (LDKHQL=439) Ur Tricyclics Screen Negative (KMNOCA=138) Ur Phencyclidine Scrn Negative (CUTOFF=25) Ur Amphetamine Screen Presumptive positive H (GHETBO=389) U Methamphetamines Scrn Presumptive positive H (XNKCAH=683) U Benzodiazepines Scrn Negative (WQLOUW=157) U Cocaine Metab Screen Negative (YHCGDV=838) U Marijuana (THC) Screen Negative (CUTOFF=50) Blood Type A POSITIVE Gel Antibody Screen Negative Med Orders - Current: Current Medications Diphenhydramine HCl (Benadryl) 25 mg IVPUSH Q6H PRN PRN Reason: pruritis Ephedrine Sulfate (Ephedrine Sulfate) 5 mg IVPUSH ASDIRECTED PRN PRN Reason: Hypotension Fentanyl (Sublimaze) 100 mcg EPIDUR Q3H PRN PRN Reason: Pain Fentanyl/Bupivacaine HCl (Fentanyl/Bupivacaine/Ns 2 Mcg-0.125% 100 Ml) 100 ml EPIDUR ASDIRECTED MONTRELL Last Admin: 06/03/18 15:40 Dose: 100 ml Ampicillin Sodium 1 gm/ Sodium (Chloride) 100 mls @ 200 mls/hr IV Q4H MONTRELL Last Admin: 06/03/18 23:06 Dose: 200 mls/hr Lactated Ringer's (Ringers, Lactated) 1,000 mls @ 100 mls/hr IV ASDIRECTED MONTRELL Last Admin: 06/03/18 21:05 Dose: 100 mls/hr Oxytocin/Lactated Ringer's (Pitocin In Lr 10 Units/1,000 Ml) 10 unit in 1,000 mls @ 500 mls/hr IV .CONTINUOUS MONTRELL Oxytocin/Lactated Ringer's (Pitocin In Lr 10 Units/1,000 Ml) 10 unit in 1,000 mls @ 12 mls/hr IV TITRATE MONTRELL; Protocol Nalbuphine HCl (Nubain) 10 mg IVPUSH Q2H PRN PRN Reason: pain Sodium Chloride (Saline Flush) 10 ml FLUSH ASDIRECTED PRN PRN Reason: Keep Vein Open Discontinued Medications Lactated Ringer's (Ringers, Lactated) Confirm Administered Dose 1,000 mls @ as directed .ROUTE .STK-MED ONE Stop: 06/03/18 14:34 Last Admin: 06/03/18 15:45 Dose: Not Given Ampicillin Sodium 2 gm/ Sodium (Chloride) 100 mls @ 200 mls/hr IV ONETIME ONE Stop: 06/03/18 15:00 Last Admin: 06/03/18 15:12 Dose: 200 mls/hr Lidocaine HCl (Xylocaine 1%) 20 ml INJECT ONETIME ONE Stop: 06/03/18 14:32 - Problem List & Annotations (1) Late care SNOMED Code(s): 835902356 Code(s): O09.30 - SUPRVSN OF PREG W INSUFFICIENT ANTENAT CARE, UNSP TRIMESTER Status: Acute Current Visit: Yes (2) GBS bacteriuria SNOMED Code(s): 36414378 Code(s): R82.71 - BACTERIURIA Status: Acute Current Visit: Yes (3) Anemia complicating SNOMED Code(s): 79587584 Code(s): O99.019 - ANEMIA COMPLICATING , UNSPECIFIED TRIMESTER Status: Acute Current Visit: Yes (4) History of anxiety SNOMED Code(s): 084667132 Code(s): Z86.59 - PERSONAL HISTORY OF OTHER MENTAL AND BEHAVIORAL DISORDERS Status: Acute Current Visit: Yes (5) History of depression SNOMED Code(s): 736468107 Code(s): Z86.59 - PERSONAL HISTORY OF OTHER MENTAL AND BEHAVIORAL DISORDERS Status: Acute Current Visit: Yes (6) 39 weeks gestation of SNOMED Code(s): 39025913 Code(s): Z3A.39 - 39 WEEKS GESTATION OF Status: Acute Current Visit: No (7) History of depression SNOMED Code(s): 226467409 Code(s): Z87.59 - PERSONAL HISTORY OF COMP OF PREG, CHLDBRTH AND THE PUERP; Z86.59 - PERSONAL HISTORY OF OTHER MENTAL AND BEHAVIORAL DISORDERS Status: Acute Current Visit: Yes (8) History of depression, currently SNOMED Code(s): 162151231 Code(s): O99.89 - OTH DISEASES AND CONDITIONS COMPL PREG/CHLDBRTH; Z86.59 - PERSONAL HISTORY OF OTHER MENTAL AND BEHAVIORAL DISORDERS Status: Acute Current Visit: Yes (9) History of cellulitis SNOMED Code(s): 052066718 Code(s): Z87.2 - PERSONAL HISTORY OF DISEASES OF THE SKIN, SUBCU Status: Acute Current Visit: Yes (10) Vaginal delivery SNOMED Code(s): 366400656 Code(s): O80 - ENCOUNTER FOR FULL-TERM UNCOMPLICATED DELIVERY Status: Acute Current Visit: Yes (11) First degree perineal laceration during delivery SNOMED Code(s): 293610528 Code(s): O70.0 - FIRST DEGREE PERINEAL LACERATION DURING DELIVERY Status: Acute Current Visit: Yes - Problem List Review Problem List Initiated/Reviewed/Updated: Yes - My Orders Last 24 Hours: My Active Orders 06/03/18 14:20 RAPID PLASMA REAGIN,RPR [CHEM] Routine 06/03/18 14:31 Patient Status [ADT] Routine Activity as Tolerated [RC] PFP Communication Order [RC] ASDIRECTED Non Stress Test [RC] PER UNIT ROUTINE Notify Provider [RC] PFP Notify Provider [RC] PRN Urinary Catheter Assessment [RC] ASDIRECTED Vital Signs [RC] PER UNIT ROUTINE Nalbuphine [Nubain] 10 mg IVPUSH Q2H PRN Sodium Chloride 0.9% [Saline Flush] 10 ml FLUSH ASDIRECTED PRN Electronic Heart Tones Ext w TOCO [WOMSER] Routine Electronic Heart Tones Internal [WOMSER] Per Unit Routine Peripheral IV Insertion Adult [OM.PC] Routine Resuscitation Status Routine 06/03/18 14:32 Heart Tones [RC] ASDIRECTED Peripheral IV Care [RC] . DIRECTED 06/03/18 14:34 Pump Management, Intrathecal [RC] ASDIRECTED 06/03/18 14:45 Lactated Ringers [Ringers, Lactated] 1,000 ml IV ASDIRECTED Oxytocin/Lactated Ringers [Pitocin in LR 10 Units/1,000 ML] 10 unit in 1,000 ml IV .CONTINUOUS 06/03/18 18:07 AMPHETAMINES, CONF, UR Stat 06/03/18 19:00 Ampicillin 1 gm Sodium Chloride 0.9% [Normal Saline] 100 ml IV Q4H 06/03/18 21:15 Oxytocin/Lactated Ringers [Pitocin in LR 10 Units/1,000 ML] 10 unit in 1,000 ml IV TITRATE 06/03/18 Dinner Regular Diet [DIET] 06/04/18 00:36 Patient Status Manage Transfer [TRANSFER] Routine - Plan Plan:: Admit to inpatient following normal spontaneous vaginal delivery Continue Pitocin per unit protocol following delivery of placenta and lactated Ringer's until tolerating regular diet Regular diet Vitals per unit routine Ibuprofen and Tylenol for pain control Assist with breast-feeding as needed Continue to monitor lochia Social work consult secondary to positive urine drug screen for amphetamines and methamphetamines Anticipate discharge home on day #1 or #2 depending on infant's status Miguel Butterfield MD 12:45 AM 06/04/2018 HPI Initial Comments: [facility] LIVE L/D Delivery Note Patient Name: YENNI LOONEY Date of : 86 Patient Status: Inpatient Attending Provider: Miguel Butterfield Date: 06/04/18 00:42 Initialization Date: 06/04/18 00:42 L & D Note - General Info Date of Service: 06/04/18 Mother's Due Date: 06/09/18 - Delivery Note Labor: Spontaneous, Augmented by ARM, Augmented by Oxytocin Delivery Outcome: Livebirth Delivery Method: Spontaneous Vaginal Delivery-Single Presentation: Right Occiput Posterior (ROP) Nuchal Cord: None Prep: Povidone-Iodine (Betadine Anesthesia Type: Epidural Amniotic Fluid Description: Clear Episiotomy Type: None Laceration: 1st Degree, Perineal (not repaired, hemostatic) Placenta: Intact, Spontaneous Cord: 3 Vessels Estimated Blood Loss: 350 Resuscitation Needed: Yes Tuttle: Bulb Syringe, Stimulated, Warmed, [place] Used Provider: Miguel Butterfield Score 1 min: 8 Score 5 min: 9 Second Stage Interventions: Reports: Pushing Effectively, Pushing, Pulls Own Legs Back, Pushing, Stirrups/Leg Supports Delivery Comments (Free Text/Narrative):: Stage I: Yenni Looney was admitted for spontaneous labor. On admission her cervix was dilated to 5 cm. She was GBS positive and was started on ampicillin for prophylaxis. She received a total of 3 doses prior to delivery. She was given an epidural for anesthesia. After her second dose of ampicillin she had artificial rupture membranes with clear fluid. She had spacing out of her contractions after several hours after artificial rupture of membranes and was started on Pitocin for augmentation of her labor. She progressed to complete and pushing. Stage II: On 06/04/2018 she had a normal vaginal delivery of a live female infant at 0017. Apgars of 8 & 9. Weight of 3620 g (8 lbs 0 oz). Length of 20 inches. There was no nuchal cord. Infant was delivered in ROP position. The cord was doubly clamped and cut by father of the infant. Infant was placed on mother's abdomen. Stage III: She had a spontaneous delivery of an intact placenta in Rodriguez presentation. Three vessel cord. She was given pitocin and fundal massage. She had a first-degree perineal laceration of the perineal skin that was hemostatic and not repaired. Mom and baby were stable to recovery. EBL of 350 mL. Miguel Butterfield MD 12:45 AM 06/04/2018 - General Info Date of Service: 06/04/18 - Patient Data Vitals - Most Recent: Last Vital Signs Temp 36.8 C 06/03/18 15:44 Pulse 114 H 06/03/18 15:44 Resp 18 06/03/18 15:44 BP 110/64 06/03/18 15:44 Pulse Ox 100 06/03/18 15:44 Weight - Most Recent: 83.915 kg Lab Results Last 24 Hours: Laboratory Results - last 24 hr 06/03/18 06/03/18 06/03/18 Range/Units 14:20 14:20 18:07 WBC 9.87 (3.98-10.04) K/mm3 RBC 4.21 (3.98-5.22) M/mm3 Hgb 10.0 L (11.2-15.7) gm/L Hct 32.3 L (34.1-44.9) % MCV 76.7 L (79.4-94.8) fl MCH 23.8 L (25.6-32.2) pg MCHC 31.0 L (32.2-35.5) g/dl RDW Std Deviation 51.5 H (36.4-46.3) fL Plt Count 166 L (182-369) K/mm3 MPV 12.5 H (9.4-12.3) fl Urine Opiates Screen Negative (KIIPPK=198) Ur Buprenorphine Scrn Negative (CUTOFF=10) Ur Oxycodone Screen Negative (HMS6KM=977) Urine Methadone Screen Negative (RNDIID=231) Ur Propoxyphene Screen Negative (EVWQCI=909) Ur Barbiturates Screen Negative (VJHZMY=866) Ur Tricyclics Screen Negative (BNTWGA=949) Ur Phencyclidine Scrn Negative (CUTOFF=25) Ur Amphetamine Screen Presumptive positive H (LYNDWK=433) U Methamphetamines Scrn Presumptive positive H (XKEXHS=905) U Benzodiazepines Scrn Negative (YHFYSG=212) U Cocaine Metab Screen Negative (WBFXPU=848) U Marijuana (THC) Screen Negative (CUTOFF=50) Blood Type A POSITIVE Gel Antibody Screen Negative Med Orders - Current: Current Medications Diphenhydramine HCl (Benadryl) 25 mg IVPUSH Q6H PRN PRN Reason: pruritis Ephedrine Sulfate (Ephedrine Sulfate) 5 mg IVPUSH ASDIRECTED PRN PRN Reason: Hypotension Fentanyl (Sublimaze) 100 mcg EPIDUR Q3H PRN PRN Reason: Pain Fentanyl/Bupivacaine HCl (Fentanyl/Bupivacaine/Ns 2 Mcg-0.125% 100 Ml) 100 ml EPIDUR ASDIRECTED MONTRELL Last Admin: 06/03/18 15:40 Dose: 100 ml Ampicillin Sodium 1 gm/ Sodium (Chloride) 100 mls @ 200 mls/hr IV Q4H MONTRELL Last Admin: 06/03/18 23:06 Dose: 200 mls/hr Lactated Ringer's (Ringers, Lactated) 1,000 mls @ 100 mls/hr IV ASDIRECTED MONTRELL Last Admin: 06/03/18 21:05 Dose: 100 mls/hr Oxytocin/Lactated Ringer's (Pitocin In Lr 10 Units/1,000 Ml) 10 unit in 1,000 mls @ 500 mls/hr IV .CONTINUOUS MONTRELL Oxytocin/Lactated Ringer's (Pitocin In Lr 10 Units/1,000 Ml) 10 unit in 1,000 mls @ 12 mls/hr IV TITRATE MONTRELL; Protocol Nalbuphine HCl (Nubain) 10 mg IVPUSH Q2H PRN PRN Reason: pain Sodium Chloride (Saline Flush) 10 ml FLUSH ASDIRECTED PRN PRN Reason: Keep Vein Open Discontinued Medications Lactated Ringer's (Ringers, Lactated) Confirm Administered Dose 1,000 mls @ as directed .ROUTE .STK-MED ONE Stop: 06/03/18 14:34 Last Admin: 06/03/18 15:45 Dose: Not Given Ampicillin Sodium 2 gm/ Sodium (Chloride) 100 mls @ 200 mls/hr IV ONETIME ONE Stop: 06/03/18 15:00 Last Admin: 06/03/18 15:12 Dose: 200 mls/hr Lidocaine HCl (Xylocaine 1%) 20 ml INJECT ONETIME ONE Stop: 06/03/18 14:32 - Problem List & Annotations (1) Late care SNOMED Code(s): 421242097 Code(s): O09.30 - SUPRVSN OF PREG W INSUFFICIENT ANTENAT CARE, UNSP TRIMESTER Status: Acute Current Visit: Yes (2) GBS bacteriuria SNOMED Code(s): 99629919 Code(s): R82.71 - BACTERIURIA Status: Acute Current Visit: Yes (3) Anemia complicating SNOMED Code(s): 33871741 Code(s): O99.019 - ANEMIA COMPLICATING , UNSPECIFIED TRIMESTER Status: Acute Current Visit: Yes (4) History of anxiety SNOMED Code(s): 726301527 Code(s): Z86.59 - PERSONAL HISTORY OF OTHER MENTAL AND BEHAVIORAL DISORDERS Status: Acute Current Visit: Yes (5) History of depression SNOMED Code(s): 454884597 Code(s): Z86.59 - PERSONAL HISTORY OF OTHER MENTAL AND BEHAVIORAL DISORDERS Status: Acute Current Visit: Yes (6) 39 weeks gestation of SNOMED Code(s): 44097250 Code(s): Z3A.39 - 39 WEEKS GESTATION OF Status: Acute Current Visit: No (7) History of depression SNOMED Code(s): 730498957 Code(s): Z87.59 - PERSONAL HISTORY OF COMP OF PREG, CHLDBRTH AND THE PUERP; Z86.59 - PERSONAL HISTORY OF OTHER MENTAL AND BEHAVIORAL DISORDERS Status: Acute Current Visit: Yes (8) History of depression, currently SNOMED Code(s): 031029895 Code(s): O99.89 - OTH DISEASES AND CONDITIONS COMPL PREG/CHLDBRTH; Z86.59 - PERSONAL HISTORY OF OTHER MENTAL AND BEHAVIORAL DISORDERS Status: Acute Current Visit: Yes (9) History of cellulitis SNOMED Code(s): 842081071 Code(s): Z87.2 - PERSONAL HISTORY OF DISEASES OF THE SKIN, SUBCU Status: Acute Current Visit: Yes (10) Vaginal delivery SNOMED Code(s): 073011333 Code(s): O80 - ENCOUNTER FOR FULL-TERM UNCOMPLICATED DELIVERY Status: Acute Current Visit: Yes (11) First degree perineal laceration during delivery SNOMED Code(s): 095192124 Code(s): O70.0 - FIRST DEGREE PERINEAL LACERATION DURING DELIVERY Status: Acute Current Visit: Yes - Problem List Review Problem List Initiated/Reviewed/Updated: Yes - My Orders Last 24 Hours: My Active Orders 06/03/18 14:20 RAPID PLASMA REAGIN,RPR [CHEM] Routine 06/03/18 14:31 Patient Status [ADT] Routine Activity as Tolerated [RC] PFP Communication Order [RC] ASDIRECTED Non Stress Test [RC] PER UNIT ROUTINE Notify Provider [RC] PFP Notify Provider [RC] PRN Urinary Catheter Assessment [RC] ASDIRECTED Vital Signs [RC] PER UNIT ROUTINE Nalbuphine [Nubain] 10 mg IVPUSH Q2H PRN Sodium Chloride 0.9% [Saline Flush] 10 ml FLUSH ASDIRECTED PRN Electronic Heart Tones Ext w TOCO [WOMSER] Routine Electronic Heart Tones Internal [WOMSER] Per Unit Routine Peripheral IV Insertion Adult [OM.PC] Routine Resuscitation Status Routine 06/03/18 14:32 Heart Tones [RC] ASDIRECTED Peripheral IV Care [RC] . DIRECTED 06/03/18 14:34 Pump Management, Intrathecal [RC] ASDIRECTED 06/03/18 14:45 Lactated Ringers [Ringers, Lactated] 1,000 ml IV ASDIRECTED Oxytocin/Lactated Ringers [Pitocin in LR 10 Units/1,000 ML] 10 unit in 1,000 ml IV .CONTINUOUS 06/03/18 18:07 AMPHETAMINES, CONF, UR Stat 06/03/18 19:00 Ampicillin 1 gm Sodium Chloride 0.9% [Normal Saline] 100 ml IV Q4H 06/03/18 21:15 Oxytocin/Lactated Ringers [Pitocin in LR 10 Units/1,000 ML] 10 unit in 1,000 ml IV TITRATE 06/03/18 Dinner Regular Diet [DIET] 06/04/18 00:36 Patient Status Manage Transfer [TRANSFER] Routine - Plan Plan:: Admit to inpatient following normal spontaneous vaginal delivery Continue Pitocin per unit protocol following delivery of placenta and lactated Ringer's until tolerating regular diet Regular diet Vitals per unit routine Ibuprofen and Tylenol for pain control Assist with breast-feeding as needed Continue to monitor lochia Social work consult secondary to positive urine drug screen for amphetamines and methamphetamines Anticipate discharge home on day #1 or #2 depending on 's status Miguel Butterfield MD 12:45 AM 06/04/2018 Brief History: [facility] LIVE . L/D Delivery Note. [facility]: [id number]. Date of : Patient Status: Inpatient. Attending Provider: Miguel Butterfieldcount Number: [id number]. Date: 06/04/18 00:42Initialization Date: 06/04/18 00:42. L & D Note. - General Info. Date of Service: 06/04/18. Mother's Due Date: . - Delivery Note. Labor: Spontaneous, Augmented by ARM, Augmented by Oxytocin. Delivery Outcome: Livebirth. Infant Delivery Method: Spontaneous Vaginal Delivery-Single. Presentation: Right Occiput Posterior (ROP). Nuchal Cord: None. Prep: Povidone-Iodine (Betadine. Anesthesia Type: Epidural. Amniotic Fluid Description: Clear. Episiotomy Type: None. Laceration: 1st Degree, Perineal (not repaired, hemostatic). Placenta: Intact, Spontaneous. Cord: 3 Vessels. Estimated Blood Loss: 350. Resuscitation Needed : Yes. Tuttle: Bulb Syringe, Stimulated, Warmed, [place] Used. Provider: Miguel Butterfield. Score 1 min: 8. Score 5 min: 9. Second Stage Interventions: Reports: Pushing Effectively, Pushing, Pulls Own Legs Back , Pushing, Stirrups/Leg Supports. Delivery Comments (Free Text/Narrative):: Stage I: Yenni Looney was admitted for spontaneous labor. On admission her cervix was dilated to 5 cm. She was GBS positive and was started on ampicillin for prophylaxis. She received a total of 3 doses prior to delivery. She was given an epidural for anesthesia. After her second dose of ampicillin she had artificial rupture membranes with clear fluid. She had spacing out of her contractions after several hours after artificial rupture of membranes and was started on Pitocin for augmentation of her labor. She progressed to complete and pushing. Stage II: On 06/04/2018 she had a normal vaginal delivery of a live female infant at 0017. Apgars of 8 & 9. Weight of 3620 g (8 lbs 0 oz). Length of 20 inches. There was no nuchal cord. was delivered in ROP position. The cord was doubly clamped and cut by father of the . Infant was placed on mother's abdomen. Stage III: She had a spontaneous delivery of an intact placenta in Rodriguez presentation. Three vessel cord. She was given pitocin and fundal massage. She had a first-degree perineal laceration of the perineal skin that was hemostatic and not repaired. Mom and baby were stable to recovery. EBL of 350 mL. Miguel Butterfield MD. 12:45 AM. 06/04/2018. - General Info. Date of Service: 06/04/18. - Patient Data. Vitals - Most Recent: Last Vital Signs. Temp 36.8 C 06/03/18 15:44. Pulse 114 H 06/03/18 15:44. Resp 18 06/03/18 15: 44. BP 110/64 06/03/18 15:44. Pulse Ox 100 06/03/18 15:44. Weight - Most Recent: 83.915 kg. Lab Results Last 24 Hours: Laboratory Results - last 24 hr. 06/03/1901/09/1901Range/Units. 14:2014:2018:07. WBC 9.87 (3.98- 10.04) K/mm3. RBC 4.21 (3.98-5.22) M/mm3. Hgb 10.0 L (11.2-15.7) gm/L. Hct 32.3 L (34.1-44.9) %. MCV 76.7 L (79.4-94.8) fl. MCH 23.8 L (25.6-32.2) pg. MCHC 31.0 L (32.2-35.5) g/dl. RDW Std Deviation 51.5 H (36.4-46.3) fL. Plt Count 166 L (182-369) K/mm3. MPV 12.5 H (9.4-12.3) fl. Urine Opiates Screen Negative (VMDZAU=218). Ur Buprenorphine Scrn Negative (CUTOFF=10 ). Ur Oxycodone Screen Negative (IWZ8EW=680). Urine Methadone Screen Negative (MLNORO=524). Ur Propoxyphene Screen Negative (LMWMWY=364). Ur Barbiturates Screen Negative (HMXOZU=780). Ur Tricyclics Screen Negative (ZMDCWK=577). Ur Phencyclidine Scrn Negative (CUTOFF=25). Ur Amphetamine Screen Presumptive positive H (CGFYYY=317). U Methamphetamines Scrn Presumptive positive H (CUTOFF =500). U Benzodiazepines Scrn Negative (HKLDWJ=007). U Cocaine Metab Screen Negative (LXIAGD=875). U Marijuana (THC) Screen Negative (CUTOFF=50). Blood Type A POSITIVE. Gel Antibody Screen Negative. Med Orders - Current: Current Medications. Diphenhydramine HCl (Benadryl) 25 mg IVPUSH Q6H PRN. PRN Reason : pruritis. Ephedrine Sulfate (Ephedrine Sulfate) 5 mg IVPUSH ASDIRECTED PRN. PRN Reason: Hypotension. Fentanyl (Sublimaze) 100 mcg EPIDUR Q3H PRN. PRN Reason: Pain. Fentanyl/Bupivacaine HCl (Fentanyl/Bupivacaine/Ns 2 Mcg-0.125% 100 Ml) 100 ml EPIDUR ASDIRECTED MONTRELL. Last Admin: 06/03/18 15:40 Dose: 100 ml. Ampicillin Sodium 1 gm/ Sodium (Chloride) 100 mls @ 200 mls/hr IV Q4H MONTRELL. Last Admin: 06/03/18 23:06 Dose: 200 mls/hr. Lactated Ringer's (Ringers , Lactated) 1,000 mls @ 100 mls/hr IV ASDIRECTED MONTRELL. Last Admin: 06/03/18 21: 05 Dose: 100 mls/hr. Oxytocin/Lactated Ringer's (Pitocin In Lr 10 Units/1,000 Ml) 10 unit in 1,000 mls @ 500 mls/hr IV .CONTINUOUS MONTRELL. Oxytocin/Lactated Ringer's (Pitocin In Lr 10 Units/1,000 Ml) 10 unit in 1,000 mls @ 12 mls/hr IV TITRATE MONTRELL; Protocol. Nalbuphine HCl (Nubain) 10 mg IVPUSH Q2H PRN. PRN Reason: pain. Sodium Chloride (Saline Flush) 10 ml FLUSH ASDIRECTED PRN. PRN Reason: Keep Vein Open. Discontinued Medications. Lactated Ringer's (Ringers, Lactated) Confirm Administered Dose 1,000 mls @ as directed .ROUTE .STK-MED ONE. Stop: 06/03/18 14:34. Last Admin: 06/03/18 15:45 Dose: Not Given. Ampicillin Sodium 2 gm/ Sodium (Chloride) 100 mls @ 200 mls/hr IV ONETIME ONE. Stop: 06/03/18 15:00. Last Admin: 06/03/18 15:12 Dose: 200 mls/hr. Lidocaine HCl (Xylocaine 1%) 20 ml INJECT ONETIME ONE. Stop: 06/03/18 14:32. - Problem List & Annotations. (1) Late care. SNOMED Code(s): 986817355. Code(s): O09.30 - SUPRVSN OF PREG W INSUFFICIENT ANTENAT CARE, UNSP TRIMESTER Status: Acute Current Visit: Yes. (2) GBS bacteriuria. SNOMED Code(s): 81728917. Code(s): R82.71 - BACTERIURIA Status: Acute Current Visit: Yes. (3) Anemia complicating . SNOMED Code(s): 25965719. Code (s): O99.019 - ANEMIA COMPLICATING , UNSPECIFIED TRIMESTER Status: Acute Current Visit: Yes. (4) History of anxiety. SNOMED Code(s): 390053851. Code(s): Z86.59 - PERSONAL HISTORY OF OTHER MENTAL AND BEHAVIORAL DISORDERS Status: Acute Current Visit: Yes. (5) History of depression. SNOMED Code(s): 690712588. Code(s): Z86.59 - PERSONAL HISTORY OF OTHER MENTAL AND BEHAVIORAL DISORDERS Status: Acute Current Visit: Yes. (6) 39 weeks gestation of . SNOMED Code(s): 77784982. Code(s): Z3A.39 - 39 WEEKS GESTATION OF Status: Acute Current Visit: No. (7) History of depression. SNOMED Code(s): 107032825. Code(s): Z87.59 - PERSONAL HISTORY OF COMP OF PREG, CHLDBRTH AND THE PUERP; Z86.59 - PERSONAL HISTORY OF OTHER MENTAL AND BEHAVIORAL DISORDERS Status: Acute Current Visit: Yes. (8 ) History of depression, currently . SNOMED Code(s): 259559158. Code(s): O99.89 - OTH DISEASES AND CONDITIONS COMPL PREG/CHLDBRTH; Z86.59 - PERSONAL HISTORY OF OTHER MENTAL AND BEHAVIORAL DISORDERS Status: Acute Current Visit: Yes. (9) History of cellulitis. SNOMED Code(s): 446726529. Code(s): Z87.2 - PERSONAL HISTORY OF DISEASES OF THE SKIN, SUBCU Status: Acute Current Visit: Yes. (10) Vaginal delivery. SNOMED Code(s): 390621741. Code(s): O80 - ENCOUNTER FOR FULL-TERM UNCOMPLICATED DELIVERY Status: Acute Current Visit: Yes. (11) First degree perineal laceration during delivery. SNOMED Code(s): 962092137. Code(s): O70.0 - FIRST DEGREE PERINEAL LACERATION DURING DELIVERY Status: Acute Current Visit: Yes. - Problem List Review. Problem List Initiated/Reviewed/Updated: Yes. - My Orders. Last 24 Hours: My Active Orders. 06/03/18 14:20. RAPID PLASMA REAGIN ,RPR [CHEM] Routine. 06/03/18 14:31. Patient Status [ADT] Routine. Activity as Tolerated [RC] PFP. Communication Order [RC] ASDIRECTED. Non Stress Test [RC] PER UNIT ROUTINE. Notify Provider [RC] PFP. Notify Provider [RC] PRN. Urinary Catheter Assessment [RC] ASDIRECTED. Vital Signs [RC] PER UNIT ROUTINE. Nalbuphine [Nubain] 10 mg IVPUSH Q2H PRN. Sodium Chloride 0.9% [ Saline Flush] 10 ml FLUSH ASDIRECTED PRN. Electronic Heart Tones Ext w TOCO [WOMSER] Routine. Electronic Heart Tones Internal [WOMSER] Per Unit Routine. Peripheral IV Insertion Adult [OM.PC] Routine. Resuscitation Status Routine. 06/03/18 14:32. Heart Tones [RC] ASDIRECTED. Peripheral IV Care [RC] . DIRECTED. 06/03/18 14:34. Pump Management, Intrathecal [RC] ASDIRECTED. 06/03/18 14:45. Lactated Ringers [Ringers, Lactated] 1,000 ml IV ASDIRECTED. Oxytocin/Lactated Ringers [Pitocin in LR 10 Units/1,000 ML] 10 unit in 1,000 ml IV .CONTINUOUS. 06/03/18 18:07. AMPHETAMINES, CONF, UR Stat. 06/03/18 19:00. Ampicillin 1 gm Sodium Chloride 0.9% [Normal Saline] 100 ml IV Q4H. 06/03/18 21:15. Oxytocin/Lactated Ringers [Pitocin in LR 10 Units/1 ,000 ML] 10 unit in 1,000 ml IV TITRATE. 06/03/18 Dinner. Regular Diet [DIET] . 06/04/18 00:36. Patient Status Manage Transfer [TRANSFER] Routine. - Plan. Plan:: Admit to inpatient following normal spontaneous vaginal delivery. Continue Pitocin per unit protocol following delivery of placenta and lactated Ringer's until tolerating regular diet. Regular diet. Vitals per unit routine. Ibuprofen and Tylenol for pain control. Assist with breast-feeding as needed. Continue to monitor lochia. Social work consult secondary to positive urine drug screen for amphetamines and methamphetamines. Anticipate discharge home on day #1 or #2 depending on 's status. Miguel Butterfield MD. 12:45 AM. 06/04/2018 Diagnosis: Stroke: No - Discharge Data Discharge Date: 06/05/18 Discharge Disposition: Home, Self-Care 01 Condition: Good - Discharge Diagnosis/Problem(s) (1) 39 weeks gestation of SNOMED Code(s): 27759468 ICD Code: Z3A.39 - 39 WEEKS GESTATION OF Status: Acute Current Visit: No (2) (normal spontaneous vaginal delivery) SNOMED Code(s): 69785782 ICD Code: O80 - ENCOUNTER FOR FULL-TERM UNCOMPLICATED DELIVERY Status: Acute Current Visit: No (3) Second degree laceration of perineum, delivered, current hospitalization SNOMED Code(s): 240455511, 690935193 ICD Code: O70.1 - SECOND DEGREE PERINEAL LACERATION DURING DELIVERY Status : Acute Current Visit: No (4) Late care SNOMED Code(s): 080354843 ICD Code: O09.30 - SUPRVSN OF PREG W INSUFFICIENT ANTENAT CARE, UNSP TRIMESTER Status: Acute Current Visit: Yes - Patient Summary/Data Complications: none Consults: Consultations 06/04/18 01:52 Consult to Case Management/Electronic Scale Tester [CONS] Routine Hospital Course: uneventful - Patient Instructions Diet: Usual Diet as Tolerated Driving: May Drive Today Showering/Bathing: May Shower Notify Provider of: Fever, Increased Pain, Swelling and Redness, Drainage, Nausea and/or Vomiting - Discharge Plan *PRESCRIPTION DRUG MONITORING PROGRAM REVIEWED*: Not Applicable *COPY OF PRESCRIPTION DRUG MONITORING REPORT IN PATIENT ERMA: Not Applicable Home Medications: Home Meds Clindamycin HCl 300 mg PO Q6HR #20 capsule 10/23/17 [Rx] Vit with Ca/FA/Iron [ Plus Iron] 1 each PO DAILY #30 tablet [Rx] Saccharomyces Boulardii [Florastor] 500 mg PO DAILY #30 cap 10/23/17 [Rx] Referrals: Miguel Butterfield MD [Primary Care Provider] - (2 weeks) - Discharge Summary/Plan Comment DC Time >30 min.: No - Patient Data Vitals - Most Recent: Last Vital Signs Temp 98.0 F 06/05/18 09:00 Pulse 70 06/05/18 09:04 Resp 16 06/05/18 09:00 BP 112/75 06/05/18 09:04 Pulse Ox 97 06/05/18 09:04 Weight - Most Recent: 185 lb I&O - Last 24 hours: Intake & Output 06/04/18 06/05/18 06/05/18 22:59 06:59 14:59 Intake Total 0 240 Balance 0 240 Lab Results - Last 24 hrs: Laboratory Results - last 24 hr 06/03/18 Range/Units 14:20 RPR Non-reactive (NONREACTIVE) Med Orders - Current: Current Medications Acetaminophen (Tylenol) 650 mg PO Q6H PRN PRN Reason: mild pain or fever Last Admin: 06/04/18 19:09 Dose: 650 mg Benzocaine/Menthol (Dermoplast Pain Relief [place]) 0 gm TOP ASDIRECTED PRN PRN Reason: Perineal Comfort Measure Last Admin: 06/04/18 02:17 Dose: 1 can Docusate Sodium (Colace) 100 mg PO BID PRN PRN Reason: Constipation Emollient Ointment (Lansinoh Hpa) 0 gm TOP ASDIRECTED PRN PRN Reason: Sore Nipples Last Admin: 06/04/18 16:36 Dose: 1 applic Ferrous Sulfate (Ferrous Sulfate) 325 mg PO WITHBREAKFAST MONTRELL Last Admin: 06/05/18 11:59 Dose: 325 mg Hydrocortisone Acetate (Anucort-Hc) 25 mg RECTAL BID PRN PRN Reason: Hemorrhoid pain Oxytocin/Lactated Ringer's (Pitocin In Lr 10 Units/1,000 Ml) 10 unit in 1,000 mls @ 100 mls/hr IV TITRATE MONTRELL; Protocol Last Titration: 06/04/18 00:18 Dose: 250 mls/hr Ibuprofen (Motrin) 600 mg PO Q6H PRN PRN Reason: Mild pain or fever Last Admin: 06/05/18 09:08 Dose: 600 mg Magnesium Hydroxide (Milk Of Magnesia) 30 ml PO BEDTIME PRN PRN Reason: Constipation Prenat Multivit/Woods/Iron/Folic Ac ( Plus Iron) 1 each PO DAILY [facility] Last Admin: 06/05/18 09:08 Dose: 1 each Witch Mary Ellen (Tucks) 1 pad TOP ASDIRECTED PRN PRN Reason: Hemorrhoid pain Last Admin: 06/04/18 02:17 Dose: 1 tub Discontinued Medications Bupivacaine HCl (Sensorcaine-Mpf 0.25%) 10 ml .ROUTE .STK-MED ONE Stop: 06/03/18 22:01 Diphenhydramine HCl (Benadryl) 25 mg IVPUSH Q6H PRN PRN Reason: pruritis Ephedrine Sulfate (Ephedrine Sulfate) 5 mg IVPUSH ASDIRECTED PRN PRN Reason: Hypotension Fentanyl (Sublimaze) 100 mcg EPIDUR Q3H PRN PRN Reason: Pain Fentanyl/Bupivacaine HCl (Fentanyl/Bupivacaine/Ns 2 Mcg-0.125% 100 Ml) 100 ml EPIDUR ASDIRECTED [facility] Last Admin: 06/03/18 15:40 Dose: 100 ml Lactated Ringer's (Ringers, Lactated) Confirm Administered Dose 1,000 mls @ as directed .ROUTE .STK-MED ONE Stop: 06/03/18 14:34 Last Admin: 06/03/18 15:45 Dose: Not Given Ampicillin Sodium 2 gm/ Sodium (Chloride) 100 mls @ 200 mls/hr IV ONETIME ONE Stop: 06/03/18 15:00 Last Admin: 06/03/18 15:12 Dose: 200 mls/hr Ampicillin Sodium 1 gm/ Sodium (Chloride) 100 mls @ 200 mls/hr IV Q4H [facility] Last Admin: 06/03/18 23:06 Dose: 200 mls/hr Lactated Ringer's (Ringers, Lactated) 1,000 mls @ 100 mls/hr IV ASDIRECTED [facility] Last Admin: 06/03/18 21:05 Dose: 100 mls/hr Oxytocin/Lactated Ringer's (Pitocin In Lr 10 Units/1,000 Ml) 10 unit in 1,000 mls @ 500 mls/hr IV .CONTINUOUS MONTRELL Oxytocin/Lactated Ringer's (Pitocin In Lr 10 Units/1,000 Ml) 10 unit in 1,000 mls @ 12 mls/hr IV TITRATE MONTRELL; Protocol Lidocaine HCl (Xylocaine 1%) 20 ml INJECT ONETIME ONE Stop: 06/03/18 14:32 Last Admin: 06/04/18 03:44 Dose: Not Given Lidocaine/Epinephrine (Xylocaine-Mpf 1.5% W/Epinephrine 1:200,000) 5 ml .ROUTE .STK-MED ONE Stop: 06/03/18 22:01 Nalbuphine HCl (Nubain) 10 mg IVPUSH Q2H PRN PRN Reason: pain Sodium Chloride (Saline Flush) 10 ml FLUSH ASDIRECTED PRN PRN Reason: Keep Vein Open
--- NOTE | 2018-06-05 17:13 | PCM.SN ---
- Free Text/Narrative Note: Late entry note from 06/05/2018 Post Progress Note PPD # 1 Subjective: Doing well overall. Ambulating without difficulty. Lochia minimal. Voiding without difficulty. Tolerating regular diet without nausea or vomiting. Pain controlled with oral medications. Breast-feeding with some formula supplementation with minimal difficulty. Objective: Vital signs 06/05/2018 0900 HR: 76 BP: 112/75 Temp: 36.7 C Respiratory rate: 16 SPO2: 98% on room air Physical Exam General: Alert and oriented, no acute distress Lungs: Clear to auscultation bilaterally Heart: Regular rate and rhythm Abdomen: Soft, minimal appropriate tenderness, non-distended, fundus midline, nontender, and 2 fingerbreadths below the umbilicus Extremities: No edema Laboratory Tests 06/03/18 06/03/18 06/03/18 Range/Units 14:20 14:20 14:20 WBC 9.87 (3.98-10.04) K/mm3 RBC 4.21 (3.98-5.22) M/mm3 Hgb 10.0 L (11.2-15.7) gm/L Hct 32.3 L (34.1-44.9) % MCV 76.7 L (79.4-94.8) fl MCH 23.8 L (25.6-32.2) pg MCHC 31.0 L (32.2-35.5) g/dl RDW Std Deviation 51.5 H (36.4-46.3) fL Plt Count 166 L (182-369) K/mm3 MPV 12.5 H (9.4-12.3) fl Urine Opiates Screen (FLHGNM=533) Ur Buprenorphine Scrn (CUTOFF=10) Ur Oxycodone Screen (NUU1RZ=050) Urine Methadone Screen (NDIYIX=859) Ur Propoxyphene Screen (NIMHWF=172) Ur Barbiturates Screen (BQWURZ=205) Ur Tricyclics Screen (MBSPRA=131) Ur Phencyclidine Scrn (CUTOFF=25) Ur Amphetamine Screen (FHBLKC=775) U Methamphetamines Scrn (IKYWHJ=213) U Benzodiazepines Scrn (WNMKAC=375) U Cocaine Metab Screen (LKPETH=363) U Marijuana (THC) Screen (CUTOFF=50) RPR Non-reactive (NONREACTIVE) Blood Type A POSITIVE Gel Antibody Screen Negative 06/03/18 Range/Units 18:07 WBC (3.98-10.04) K/mm3 RBC (3.98-5.22) M/mm3 Hgb (11.2-15.7) gm/L Hct (34.1-44.9) % MCV (79.4-94.8) fl MCH (25.6-32.2) pg MCHC (32.2-35.5) g/dl RDW Std Deviation (36.4-46.3) fL Plt Count (182-369) K/mm3 MPV (9.4-12.3) fl Urine Opiates Screen Negative (FJUTQT=755) Ur Buprenorphine Scrn Negative (CUTOFF=10) Ur Oxycodone Screen Negative (BPU0BI=135) Urine Methadone Screen Negative (TIYXBN=879) Ur Propoxyphene Screen Negative (KCBHDK=749) Ur Barbiturates Screen Negative (YEJCRG=418) Ur Tricyclics Screen Negative (OIHRGL=786) Ur Phencyclidine Scrn Negative (CUTOFF=25) Ur Amphetamine Screen Presumptive positive H (VSFTQS=959) U Methamphetamines Scrn Presumptive positive H (DRFNOL=382) U Benzodiazepines Scrn Negative (WISEGP=697) U Cocaine Metab Screen Negative (IKXIPZ=672) U Marijuana (THC) Screen Negative (CUTOFF=50) RPR (NONREACTIVE) Blood Type Gel Antibody Screen ASSESSMENT: 28-year-old female 034 s/p normal vaginal delivery PPD #1, complicated by presumptive positive amphetamine and methamphetamine drug screen on admission, GBS bacteriuria, anemia in , late care, history of anxiety and depression, history of depression, history of cellulitis in early PLAN: Doing well Breast-feeding with some formula supplementation with minimal difficulty. Assist as needed Lochia minimal. Continue to monitor for appropriate lochia. Continue routine care Anticipate discharge home tomorrow due to status of not being discharged today Miguel Butterfield MD 12:49 PM 06/06/2018
== END 2018-06-05 14:37 | disposition home or self-care (01) | DRG 807 ==
LOC: JD.OB 13:53 → JD.OBCHECK 13:53 → JD.OB 14:31 → OBSVTOIN 06-04 00:17 → JD.OB 06-04 00:18
PROVIDERS: ADMIT Obstetrics & Gynecology; ATTEND Obstetrics & Gynecology
PROC: 00HU33Z Insertion of Infusion Device into Spinal Canal, Percutaneous Approach (ICD-10-PCS; 2018-06-03)
PROC: 3E0R3BZ Introduction of Anesthetic Agent into Spinal Canal, Percutaneous Approach (ICD-10-PCS; 2018-06-03)
PROC: 10907ZC Drainage of Amniotic Fluid, Therapeutic from Products of Conception, Via Natural or Artificial Opening (ICD-10-PCS; principal; 2018-06-04)
PROC: 10E0XZZ Delivery of Products of Conception, External Approach (ICD-10-PCS; principal; 2018-06-04)
DX: O99.824 Streptococcus B carrier state complicating childbirth (principal); Z37.0 Single live birth; O99.344 Other mental disorders complicating childbirth; O99.324 Drug use complicating childbirth; O70.0 First degree perineal laceration during delivery; O99.02 Anemia complicating childbirth; D64.9 Anemia, unspecified; F41.9 Anxiety disorder, unspecified; Z3A.39 39 weeks gestation of pregnancy; F32.9 Major depressive disorder, single episode, unspecified; O99.62 Diseases of the digestive system complicating childbirth; K21.9 Gastro-esophageal reflux disease without esophagitis; Z87.891 Personal history of nicotine dependence; F15.10 Other stimulant abuse, uncomplicated
CPT/HCPCS: 01967; 36415; 51701; 51702; 59025; 59409; 80306; 85027; 86592; 86850; 86900; 86901; A9270-GY; G0480; J0290; J2590; J3490; J7030; J7120

== ENCOUNTER 2018-06-15 05:08 | Emergency (ER) | payer MEDICAID, OTHER ==
[2018-06-15 05:23] VITALS: BP 119/68
[2018-06-15] MEDS ORDERED: HYDROmorphone 1 MG/ML Syringe IVPUSH ONE (05:32)
[2018-06-15] MEDS ORDERED: Ondansetron 4 MG/2 ML SDV IVPUSH ONE (05:32)
--- NOTE | 2018-06-15 05:33 | EDM.PDOC ---
ED HPI GENERAL MEDICAL PROBLEM - General Chief Complaint: Lower Extremity Injury/Pain Stated Complaint: RECENTLY HAD BABY LEG PAIN SICK TO STOMACH Time Seen by Provider: 06/15/18 05:27 Source of Information: Reports: Patient History Limitations: Reports: No Limitations - History of Present Illness INITIAL COMMENTS - FREE TEXT/NARRATIVE: 28-year-old female presents to the ED 10 days . She had a baby on the seventh of this month. She states she only had to push for about 15 minutes and wasn't at the stirrups for a long period 2-3 days she developed pain in her left calf and behind her left knee. Since that time the pain is gradually been increasing in intensity and making it difficult to walk. Tonight she described as constant throbbing pain enough to be nauseating. She has not thrown up. She states her foot feels numb and cold at times. She is 4 para 4. She has no history of DVT. Onset: Gradual Onset Date: 06/07/18 (Pain started in her left foot and calf about 3 days .) Duration: Day(s):, Getting Worse Location: Reports: Lower Extremity, Left (Left calf and up to behind her knee.) Quality: Reports: Ache, Throbbing Severity: Moderate Improves with: Reports: None, Other Worsens with: Reports: Movement (Walking on it hurts worse.) Context: Reports: Other (10 days .). Denies: Activity, Exercise, Lifting, Sick Contact, Trauma Associated Symptoms: Reports: No Other Symptoms, Other (No dyspnea.) Treatments CHUMMER: Reports: Other (see below) (None.) Left Middle Leg Pain Score (Numeric/FACES): 8 - Related Data Allergies Allergy/AdvReac Type Severity Reaction Status Date / Time No Known Allergies Allergy Verified 06/15/18 05:23 Home Meds: Home Meds Diclofenac Sodium [Voltaren] 50 mg PO BID #16 tab.ec 06/15/18 [Rx] oxyCODONE HCl/Acetaminophen [Percocet 5-325 mg Tablet] 1 - 2 each PO Q4H PRN # 20 tablet 06/15/18 [Rx] Past Medical History - Past Health History Medical/Surgical History: Denies Medical/Surgical History Cardiovascular History: Reports: None Respiratory History: Reports: None Gastrointestinal History: Reports: GERD 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 3 live , 3 miscarriages. Currently . Psychiatric History: Reports: Anxiety, Depression Hematologic History: Reports: Anemia Dermatologic History: Reports: Cellulitis (In early ) - Infectious Disease History Infectious Disease History: Reports: Chicken Pox, Influenza - Past Surgical History Female Surgical History: Reports: D&C Social & Family History - Family History Family Medical History: Noncontributory Cardiac: Reports: Heart Murmur Musculoskeletal: Reports: RA Endocrine/Metabolic: Reports: Diabetes, Type I Hematologic: Reports: Anemia - Tobacco Use Smoking Status *Q: Current Every Day Smoker Years of Tobacco use: 15 Packs/Tins Daily: 0.2 - Caffeine Use Caffeine Use: Reports: Soda - Recreational Drug Use Recreational Drug Use: Yes Drug Use in Last 12 Months: No - Living Situation & Occupation Living situation: Reports: Single, with Significant Other Review of Systems - Review of Systems Review Of Systems: See Below Constitutional: Reports: No Symptoms Eyes: Reports: No Symptoms Ears: Reports: No Symptoms Nose: Reports: No Symptoms Mouth/Throat: Reports: No Symptoms Respiratory: Reports: No Symptoms Cardiovascular: Reports: No Symptoms GI/Abdominal: Reports: Other (Nauseated due to the intensity of the pain in her left leg.) Genitourinary: Reports: Other. Denies: Dysuria (Normal amount of lochia.), Hematuria Musculoskeletal: Reports: Leg Pain (Describes a severe constant throbbing pain in her left leg. She describes it mostly in her mid calf.) Skin: Reports: No Symptoms Neurological: Reports: No Symptoms Psychiatric: Reports: No Symptoms ED EXAM, GENERAL - Physical Exam Exam: See Below Exam Limited By: Uncooperative General Appearance: Alert, WD/WN, Moderate Distress (Is holding onto an emesis bag), Other (Vital signs show BP of 119/68 with sats of 100% on room air. Normal temperature) Respiratory/Chest: No Respiratory Distress, Lungs Clear, Normal Breath Sounds, No Accessory Muscle Use Cardiovascular: Normal Peripheral Pulses, Regular Rate, Rhythm, No Edema, No Gallop, No Murmur, No Rub Peripheral Pulses: 3+: Posterior Tibial (L), Posterior Tibial (R), Dorsalis Pedis (L), Dorsalis Pedis (R) Extremities: Normal Inspection, Normal Range of Motion, Other (She has no pain on palpation of her right calf musculature. On the left there is no edema in the muscles are not taught. There is severe tenderness to palpation throughout the gastrocnemius muscles bilaterally particularly on the ED gastrocnemius muscle. She also does have a mild bulge in the left popliteal fossa possibly representing a mild Kaye's cyst. There is less pain on palpation in the midline of the calf. There seems to be pain at the juncture of the soleus and gastrocnemius muscles at the Achilles tendon beginning. No swelling in her medial thigh.) Neurological: Alert, Oriented, CN II-XII Intact, Normal Cognition Psychiatric: Normal Affect, Anxious, Tearful Skin Exam: Warm, Dry, Intact, Normal Color, No Rash Course - Vital Signs Last Recorded V/S: Last Vital Signs Temp 36.6 C 06/15/18 05:20 Pulse 83 06/15/18 05:20 Resp 18 06/15/18 05:20 BP 119/68 06/15/18 05:20 Pulse Ox 100 06/15/18 05:20 - Orders/Labs/Meds Orders: Active Orders 24 hr Category Date Time Status URINALYSIS W/MICROSCOPIC [UA W/MICROSCOPIC] [URIN] Stat Lab 06/15/18 05:37 Ordered Dextrose 5%-0.9% NaCl [Dextrose 5%-Normal Saline] 1,000 Med 06/15/18 05:45 Active ml IV ASDIRECTED Ketorolac [Toradol] Med 06/15/18 05:45 Active 30 mg IVPUSH ONETIME Medication Orders Dextrose/Sodium Chloride (Dextrose 5%-Normal Saline) 1,000 mls @ 150 mls/hr IV ASDIRECTED MONTRELL Last Admin: 06/15/18 05:48 Dose: 150 mls/hr Ketorolac Tromethamine (Toradol) 30 mg IVPUSH ONETIME MONTRELL Last Admin: 06/15/18 05:51 Dose: 30 mg Labs: Laboratory Tests 06/15/18 06/15/18 06/15/18 Range/Units 05:35 05:35 05:35 WBC 10.88 H (3.98-10.04) K/mm3 RBC 4.86 (3.98-5.22) M/mm3 Hgb 11.6 (11.2-15.7) gm/L Hct 37.8 (34.1-44.9) % MCV 77.8 L (79.4-94.8) fl MCH 23.9 L (25.6-32.2) pg MCHC 30.7 L (32.2-35.5) g/dl RDW Std Deviation 56.0 H (36.4-46.3) fL Plt Count 477 H (182-369) K/mm3 MPV 10.4 (9.4-12.3) fl Neutrophils % (Manual) 88 H (40-60) % Band Neutrophils % 0 (0-10) % Lymphocytes % (Manual) 10 L (20-40) % Atypical Lymphs % 0 % Monocytes % (Manual) 1 L (2-10) % Eosinophils % (Manual) 1 (0.7-5.8) % Basophils % (Manual) 0 L (0.1-1.2) Toxic Granulation 1+ slight Platelet Estimate Increased Plt Morphology Comment Normal Poikilocytosis 2+ moderate Spherocytes Rare Target Cells Few Tear Drop Cells Few Ovalocytes Few Helmet Cells Few Melany Cells Few Acanthocytes (Spur) Few Schistocytes Few RBC Morph Comment Not Reportable D-Dimer, Quantitative 1.01 H (0.19-0.50) mg/L Sodium 143 (136-145) mEq/L Potassium 3.7 (3.5-5.1) mEq/L Chloride 108 H (98-107) mEq/L Carbon Dioxide 23 (21-32) mEq/L Anion Gap 15.7 H (5-15) BUN 23 H (7-18) mg/dL Creatinine 0.9 (0.55-1.02) mg/dL Est Cr Clr Drug Dosing 78.93 mL/min Estimated GFR (MDRD) > 60 (>60) mL/min BUN/Creatinine Ratio 25.6 H (14-18) Glucose 91 (74-106) mg/dL Calcium 8.7 (8.5-10.1) mg/dL Total Bilirubin 0.7 (0.2-1.0) mg/dL AST 19 (15-37) U/L ALT 24 (14-59) U/L Alkaline Phosphatase 84 (46-116) U/L C-Reactive Protein 2.2 H* (<1.0) mg/dL Total Protein 8.0 (6.4-8.2) g/dl Albumin 3.6 (3.4-5.0) g/dl Globulin 4.4 gm/dL Albumin/Globulin Ratio 0.8 L (1-2) Meds: Medications Generic Name Dose Route Start Last Admin Trade Name Freantoinette PRN Reason Stop Dose Admin Dextrose/Sodium Chloride 1,000 mls @ 150 mls/hr 06/15/18 05:45 06/15/18 05:48 Dextrose 5%-Normal Saline IV 150 mls/hr ASDIRECTED MONTRELL Administration Ketorolac Tromethamine 30 mg 06/15/18 05:45 06/15/18 05:51 Toradol IVPUSH 30 mg ONETIME MONTRELL Administration Discontinued Medications Generic Name Dose Route Start Last Admin Trade Name Freq PRN Reason Stop Dose Admin Hydromorphone HCl 0.5 mg 06/15/18 05:32 06/15/18 05:42 Dilaudid IVPUSH 06/15/18 05:33 0.5 mg ONETIME ONE Administration Ondansetron HCl 4 mg 06/15/18 05:32 06/15/18 05:40 Zofran IVPUSH 06/15/18 05:33 4 mg ONETIME ONE Administration - Radiology Interpretation Free Text/Narrative:: 28-year-old female presents the ED with painful left calf 10 days . Concern is for DVT on her part. On my evaluation her pain is more muscular skeletal with pain on palpation of the gastrocnemius muscles all the way down to the juncture of the Achilles tendon. There is no edema or swelling of the foot or any calf. She reports she was only on the strips for about 15 minutes of pushing. Pain started 3 days and is gradually worsening. Plan IV D5 S at 150 mils per hour. Will be given Zofran 4 mg IV as she is quite nauseated from the intensity of the pain. Toradol 30 mg with Dilaudid 0.5 mg IV for pain relief. Routine labs including a d-dimer will be obtained. I will then ultrasound her leg once she is more comfortable. Clinically no convincing evidence of DVT - Re-Assessments/Exams Free Text/Narrative Re-Assessment/Exam: 06/15/18 06:39 Doppler ultrasound performed on the left lower extremity and I did not find any evidence of DVT or noncompressible vessels all the way down to the bottom of her calf. She remains exquisitely tender to touch on palpation of the gastrocnemius muscles medially more so than laterally. Of note there is no rash on extremities suggest the development of shingles. She did comment that she was experiencing some pain up in her lateral left buttock area in the distribution of the sacroiliac joint. Awaiting labs. 06/15/18 06:53 Labs reveal a white count of 10.88 with 88% neutrophils and no bands. Hemoglobin slightly low 11.6 with hematocrit of 37.8. MCV is 77.8 again mildly low. Platelet count is elevated at 477,000. A back at 1.01. Suspected to be minimally elevated due to recent . Sodium 143 with potassium of 3.7. Chloride is 108 with a bicarbonate of 23. And a gap is 15.7. BUNs 23. Creatinine is 0.9. GFR remains greater than 60. Glucose is 91. Calcium is 8.7. There are function is normal. C-reactive protein is 2.2. Total protein is 8.0 with an albumin fraction of 3.6. I'm going to discharge her home on crutches. Will place her on Voltaren 50 mg twice a day for 8 days and Percocet tabs 5/325 ideally one tablet every 4 hours for pain relief. She will place hot packs on her calf to alleviate pain. Appears that she may have broken a blood vessel in the calf musculature itself as most the pain is localized to the midportion of the medial gastrocnemius muscle. She'll be discharged home on crutches. She is to expect gradual improvement in the pain over the next 5-7 days. If not she should be reviewed. Departure - Departure Time of Disposition: 07:05 Disposition: Home, Self-Care 01 Condition: Fair Clinical Impression: Gastrocnemius strain, left Qualifiers: Encounter type: initial encounter Qualified Code(s): S86.112A - Strain of other muscle(s) and tendon(s) of posterior muscle group at lower leg level, left leg, initial encounter - Discharge Information *PRESCRIPTION DRUG MONITORING PROGRAM REVIEWED*: Not Applicable *COPY OF PRESCRIPTION DRUG MONITORING REPORT IN PATIENT ERMA: Not Applicable Prescriptions: Diclofenac Sodium [Voltaren] 50 mg PO BID #16 tab.ec oxyCODONE HCl/Acetaminophen [Percocet 5-325 mg Tablet] 1 - 2 each PO Q4H PRN # 20 tablet PRN Reason: pain relief. Instructions: Muscle Strain, [id number] Referrals: Miguel Butterfield MD [Primary Care Provider] - Forms: ED Department Discharge Additional Instructions: Evaluation the emergency room this morning in regards to increased pain in your left calf musculature over the last several days. Concern was for possible blood clot formation since she had a baby on June 04. Examination of the leg did not suggest any sign of blood clots. It reveals marked tenderness to touch of the gastrocnemius muscles particularly the inside one or medial gastrocnemius muscle. Ultrasound of the leg was performed by me and I could not identify any evidence of a deep venous thrombosis or blood clot in your leg. Lab tests also proved to be essentially normal. Treatment is therefore time for your body to heal. It is suspect that a broken blood vessel occurred inside the middle of the gastrocnemius muscle causing spasm and severe pain with walking. Suggest nonweightbearing with crutches. Heat pack to the area one half hour out of every 4 hours for the next 2-3 days. Medication is Voltaren 50 mg twice daily for the next 8 days to relieve pain and inflammation. Percocet tabs 5/325 one tablet every 4-6 hours needed for pain relief. SPECT marked improvement over the next 5-7 days. Return to medical care if the leg seems to get worse or not improved in 5-7 days time. - My Orders Last 24 Hours: My Active Orders 06/15/18 05:37 URINALYSIS W/MICROSCOPIC [UA W/MICROSCOPIC] [URIN] Stat 06/15/18 05:45 Dextrose 5%-0.9% NaCl [Dextrose 5%-Normal Saline] 1,000 ml IV ASDIRECTED Ketorolac [Toradol] 30 mg IVPUSH ONETIME - Assessment/Plan Last 24 Hours: My Active Orders 06/15/18 05:37 URINALYSIS W/MICROSCOPIC [UA W/MICROSCOPIC] [URIN] Stat 06/15/18 05:45 Dextrose 5%-0.9% NaCl [Dextrose 5%-Normal Saline] 1,000 ml IV ASDIRECTED Ketorolac [Toradol] 30 mg IVPUSH ONETIME
[2018-06-15] MEDS ORDERED: Ketorolac 30 MG/ML SDV IVPUSH SCH (05:45)
[2018-06-15] MEDS ORDERED: Dextrose 5%-0.9% NaCl 1,000 ML IV SCH (05:45)
== END 2018-06-15 07:32 | disposition home or self-care (01) ==
LOC: JD.ED 05:08
DX: O9A.23 Injury, poisoning and certain other consequences of external causes complicating the puerperium (principal); S86.112A Strain of other muscle(s) and tendon(s) of posterior muscle group at lower leg level, left leg, initial encounter; O99.335 Smoking (tobacco) complicating the puerperium; F17.210 Nicotine dependence, cigarettes, uncomplicated; X50.9XXA Other and unspecified overexertion or strenuous movements or postures, initial encounter
CPT/HCPCS: 36415; 80053; 85007; 85027; 85379; 86140; 96361; 96374; 96375; 99284; J1170; J1885; J2405; J7042